=== PATIENT | female | born 1935 | race Caucasian/White ===

== ENCOUNTER 2021-09-21 08:17 | Day surgery (SDC) | payer MEDICARE, OTHER, SELFPAY ==
[2021-09-15 11:29] VITALS: BMI 26.2
--- NOTE | 2021-09-18 08:17 | P.CONAN_ITS ---
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) [facility] Past Medical History Medical History (Updated 09/15/21 @ 11:55 by Maricarmen Taylor, RN) Aortic valvular disease Asthma CAD (coronary artery disease) CHF (congestive heart failure) Chronic renal insufficiency COPD (chronic obstructive pulmonary disease) COVID-19 vaccine series completed Diabetes Elevated cholesterol GERD (gastroesophageal reflux disease) HTN (hypertension) Myocardial infarction On anticoagulant therapy Pacemaker Paroxysmal atrial fibrillation Surgical History Surgical History (Updated 09/15/21 @ 11:46 by Maricarmen Taylor RN) H/O colonoscopy History of esophagogastroduodenoscopy (EGD) History of hip surgery Hx of aortic valve replacement Hx of CABG Hx of cholecystectomy Hx of heart artery stent Hx of tonsillectomy Social History Social History Are you a primary personal care service provider to a significant other at home: No Do you presently have visiting nurse or other home services: No Patient Tobacco Use Status: Never used Tobacco Use of substances other than those prescribed or required for medical reasons: No Have you been hit, kicked, punched, or otherwise hurt by someone within the past year? If so, by whom?: No Are you DNR?: No Advance Directives Information Provided: Yes (brochure mailed) Advance Directives on File: No Recently lost weight without trying: No Nutrition Risks: Surgical patient >75years Poor oral hygiene: No Meds Allergies Allergy/AdvReac Type Severity Reaction Status Date / Time No Known Allergies Allergy Verified 09/15/21 11:24 Home Medications Medication Instructions Recorded Confirmed Last Taken Type albuterol sulfate 90 mcg/actuation 2 puff PO Q4H PRN 09/15/21 09/15/21 Unknown History aerosol inhaler amiodarone 200 mg tablet 1 tab PO DAILY 09/15/21 09/15/21 Unknown History atorvastatin 10 mg tablet 1 tab PO DAILY 09/15/21 09/15/21 Unknown History clopidogrel 75 mg tablet 1 tab PO DAILY 09/15/21 09/15/21 Unknown History famotidine 20 mg tablet 1 tab PO BID 09/15/21 09/15/21 Unknown History furosemide 40 mg tablet 1 tab PO BID 09/15/21 09/15/21 Unknown History insulin aspart U-100 100 unit/mL 3 - 5 unit SUBCUT BID 09/15/21 09/15/21 Unknown History subcutaneous solution (Novolog U-100 Insulin aspart) insulin glargine 100 unit/mL 10 unit SUBCUT DAILY 09/15/21 09/15/21 Unknown History subcutaneous solution (Lantus U-100 Insulin) isosorbide mononitrate 30 mg 1 tab PO DAILY 09/15/21 09/15/21 Unknown History tablet,extended release 24 hr latanoprost 0.005 % eye drops 1 drp OPHTHALMIC-RIGHT BEDTIME 09/15/21 09/15/21 Unknown History metoprolol tartrate 50 mg tablet 1 tab PO BID 09/15/21 09/15/21 Unknown History omega-3 acid ethyl esters 1 gram 2 cap PO DAILY 09/15/21 09/15/21 Unknown History capsule omeprazole 20 mg capsule,delayed 1 cap PO DAILY PRN 09/15/21 09/15/21 Unknown History release potassium chloride 20 mEq 1 tab PO BID 09/15/21 09/15/21 Unknown History tablet,extended release(part/cryst) timolol maleate 0.5 % eye drops 1 drp OPHTHALMIC (EYE) BID 09/15/21 09/15/21 Unknown History Exam Exam Date and Time: September 18, 2021 0817 Height,Weight and Vital Signs: Height 5 ft 3 in Weight 67.132 kg Narrative Narrative: EKG 09/15/21 atrial paced, nonspecific ST changes, prolonged QT. No change from 02/2021 Pacer Interr 07/2021 [id number] AP 97% [employer] <1% Battery remain 89% ECHO 01/2021 Mild conc LVH with normal LV cavity size and vigorous systolic function. Normal regional wall motion with EF 65-70% s/p bioprosthetic aortic valve replacement. Valve is well seated with physiologic performance and no aortic insufficiency Moderately thickened MV leaflets with mod annular calc. Mild MS Mild pulmonary htn Severe LAE Nml RV size and systolic function Assessment and Plan Assessment Anesthesia Assessment: Chart Reviewed
--- NOTE | 2021-09-18 11:47 | MHC.SHP ---
Pre-Procedural Eval Section A Date of Service: 09/18/21 The patient is an INPATIENT: No Changes since office visit: No Cold of Flu in the past 2 weeks, No New Medical Problems, No Changes in Medication and No Patient answered all questions The History & Physical has been completed within 30 days and I have reviewed it.: Yes Section B Chief Complaint: cataract,pigmentary glaucoma Allergies: Allergies Allergy/AdvReac Type Severity Reaction Status Date / Time No Known Allergies Allergy Verified 09/15/21 11:24 Plan Diagnosis/Plan: Unchanged I have reviewed the history and physical and performed a pertinent physical examination on my patient. No changes have occurred unless specified.
[2021-09-21 09:19] VITALS: BP 217/66; PULSE 60; RESP 18; TEMP 36.6; O2SAT 98
[2021-09-21] MEDS: Tetracaine HCl/PF 0.5% Oph Sol 4 ML DROPS 1 DROP EYE-LEFT (09:36)
[2021-09-21] MEDS: Tropicamide 1 % Ophth Sol 3 ML BTL 1 DROP EYE-LEFT ×3 (09:42→09:56)
[2021-09-21] MEDS: Phenylephrine HCL 2.5% Oph SoL 2 ML BOTTLE 1 DROP EYE-LEFT ×3 (09:48→10:03)
[2021-09-21] MEDS: Lactated Ringers 500 ML 20 ML IV (09:55)
--- NOTE | 2021-09-21 10:04 | PC.NURSE ---
pt bp 224/77 initially. multiple checks done with range being 2212/74-236/47. anes at bedside, spoke with ramonita and ok'd to proceed under local only. pt given option to do another day but ok'd with proceeding since she was already here.
--- NOTE | 2021-09-21 10:06 | PC.NURSE ---
hr remains at 60, no pacer spikes shown. rest of vs stable.
--- NOTE | 2021-09-21 10:08 | HO.PNOPHT ---
Ophthalmology Procedure Procedure Date of Service: 09/21/21 Ophthalmology Viscoelastic: Healjada Dialt Dual Pack Pro Ophthalmology Lenses: TECNAKUL [id number] (16) Procedure Notes: PREOPERATIVE DIAGNOSIS: Decreased visual acuity left eye secondary to cataract and glaucoma POSTOPERATIVE DIAGNOSIS: Same PROCEDURE: Left cataract extraction with intraocular lens insertion and trabeculectomy, left eye SURGEON: Peter Altamirano M.D. ANESTHESIA: Topical/MAC ESTIMATED BLOOD LOSS: None COMPLICATIONS: None After obtaining informed consent, the patient was brought to the operating room suite and placed in the supine position. After adequate sedation per anesthesia, topical drops of Tetracaine were given to the left eye. The eye was then prepped and draped in the usual sterile fashion. The operating room microscope was then positioned over the left eye and a lid speculum placed. 2% Lidocaine was instilled subconjunctivally. After awaiting 30 seconds, a paracentesis was created superiorly. Hemostasis was then achieved using wet field cautery. Mitomycin .4mg/ml was then placed in the conjunctival pocket and held in place for two minutes. The subconjunctival pocket was then irrigated copiously with 20 mls of BSS. Paracentesis was then created. Viscoelastic was then instilled into the anterior chamber. A crescent blade was then utilized to create a partial thickness sclera wound followed by advancement to clear cornea with the crescent blade. A keratome was then utilized to enter the anterior chamber. Capsulotomy forceps were then utilized to create a continuous circular tear capsulotomy. Hydrodissection and hydrodelineation were carried out until adequate mobilization of the nucleus occurred. Phacoemulsification was utilized to remove the dense central nucleus followed by removal of remnant cortical material utilizing the automated aspiration irrigation unit. Viscoelastic was then instilled into the posterior capsular bag followed by placement of a posterior chamber intraocular lens. Attention was then directed to create a trabeculectomy. A Caitlin punch was then utilized to create the trabeculectomy. The residual Viscoelastic was then removed utilizing the automated IA machine. The egress of aqueous was evaluated and found to be appropriate. The conjunctiva was then closed with a 9-0 vicryl suture. BSS was then instilled into the anterior chamber creating a superior bleb, without obvious leakage. Intracameral injection of Vigamox 0.3%, 0.1 ml and subtenon injection of Kenalog-40 0.2 ml was given followed by an atropine drop. The patient tolerated the procedure well and will be followed up in the a.m.
--- NOTE | 2021-09-21 10:11 | PC.NURSE ---
pt and dtr aware of local only for procedure.
[2021-09-21 10:54] LABS: Glucose, Whole Blood 160 mg/dL (60-115)
[2021-09-21 11:09] VITALS: BP 182/82; PULSE 60; RESP 16; TEMP 36.3; O2SAT 100
== END 2021-09-21 11:35 | disposition home or self-care (01) ==
PROVIDERS: PCP Internal Medicine; Visit Provider Ophthalmology
PROC: (CPT 66985; principal; 2021-09-21 10:20)
PROC: (CPT 66170; 2021-09-21 10:20)
DX: H25.12 Age-related nuclear cataract, left eye (principal); H40.1123 Primary open-angle glaucoma, left eye, severe stage; H52.4 Presbyopia; E78.5 Hyperlipidemia, unspecified; J45.30 Mild persistent asthma, uncomplicated; I48.0 Paroxysmal atrial fibrillation; I35.0 Nonrheumatic aortic (valve) stenosis; I25.2 Old myocardial infarction; I27.20 Pulmonary hypertension, unspecified; Z95.0 Presence of cardiac pacemaker; E11.22 Type 2 diabetes mellitus with diabetic chronic kidney disease; E11.49 Type 2 diabetes mellitus with other diabetic neurological complication; E11.42 Type 2 diabetes mellitus with diabetic polyneuropathy; I13.0 Hypertensive heart and chronic kidney disease with heart failure and stage 1 through stage 4 chronic kidney disease, or unspecified chronic kidney disease; N18.30 Chronic kidney disease, stage 3 unspecified; I50.9 Heart failure, unspecified; Z79.4 Long term (current) use of insulin; Z79.51 Long term (current) use of inhaled steroids; Z79.01 Long term (current) use of anticoagulants; Z79.899 Other long term (current) drug therapy; Z90.49 Acquired absence of other specified parts of digestive tract
CPT/HCPCS: 66984; 66170; 82947; J3300; J7315; V2632

== ENCOUNTER 2021-10-12 11:06 | Day surgery (SDC) | payer MEDICARE, OTHER, SELFPAY ==
[2021-09-15 11:32] VITALS: BMI 26.2
--- NOTE | 2021-10-08 08:37 | MHC.SHP ---
Pre-Procedural Eval Section A Date of Service: 10/08/21 The patient is an INPATIENT: No Changes since office visit: No Cold of Flu in the past 2 weeks, No New Medical Problems, No Changes in Medication and No Patient answered all questions The History & Physical has been completed within 30 days and I have reviewed it.: Yes Section B Chief Complaint: cataract right eye,pigmentary glaucoma Allergies: Allergies Allergy/AdvReac Type Severity Reaction Status Date / Time No Known Allergies Allergy Verified 09/15/21 11:24 Plan Diagnosis/Plan: Unchanged I have reviewed the history and physical and performed a pertinent physical examination on my patient. No changes have occurred unless specified.
--- NOTE | 2021-10-08 12:05 | P.CONAN_ITS ---
Documented by User: Cheri Leiv NP 10/08/21 13:00 HPI - Anesthesia Eval Consult details Narrative: 86yo F for Right Cataract Extraction IOL Insertion, Trabeculectomy Left eye done 09/21/21 under local anesthesia only d/t high BP DOS PCP cleared Pacer in situ [facility] Past Medical History Medical History (Updated 09/15/21 @ 11:55 by Maricarmen Taylor, RN) Aortic valvular disease Asthma CAD (coronary artery disease) CHF (congestive heart failure) Chronic renal insufficiency COPD (chronic obstructive pulmonary disease) COVID-19 vaccine series completed Diabetes Elevated cholesterol GERD (gastroesophageal reflux disease) HTN (hypertension) Myocardial infarction On anticoagulant therapy Pacemaker Paroxysmal atrial fibrillation Surgical History Surgical History (Updated 09/15/21 @ 11:46 by Maricarmen Taylor, SANTI) H/O colonoscopy History of esophagogastroduodenoscopy (EGD) History of hip surgery Hx of aortic valve replacement Hx of CABG Hx of cholecystectomy Hx of heart artery stent Hx of tonsillectomy Social History Social History Are you a primary director career services to a significant other at home: No Do you presently have visiting nurse or other home services: No Patient Tobacco Use Status: Never used Tobacco Use of substances other than those prescribed or required for medical reasons: No Have you been hit, kicked, punched, or otherwise hurt by someone within the past year? If so, by whom?: No Are you DNR?: No Advance Directives Information Provided: Yes (brochure mailed) Advance Directives on File: No Recently lost weight without trying: No Nutrition Risks: Surgical patient >75years Poor oral hygiene: No Meds Allergies Allergy/AdvReac Type Severity Reaction Status Date / Time No Known Allergies Allergy Verified 09/15/21 11:24 Home Medications Medication Instructions Recorded Confirmed Last Taken Type albuterol sulfate 90 mcg/actuation 2 puff PO Q4H PRN 09/15/21 09/15/21 Unknown History aerosol inhaler amiodarone 200 mg tablet 1 tab PO DAILY 09/15/21 09/15/21 Unknown History atorvastatin 10 mg tablet 1 tab PO DAILY 09/15/21 09/15/21 Unknown History clopidogrel 75 mg tablet 1 tab PO DAILY 09/15/21 09/15/21 Unknown History famotidine 20 mg tablet 1 tab PO BID 09/15/21 09/15/21 Unknown History furosemide 40 mg tablet 1 tab PO BID 09/15/21 09/15/21 Unknown History insulin aspart U-100 100 unit/mL 3 - 5 unit SUBCUT BID 09/15/21 09/15/21 Unknown History subcutaneous solution (Novolog U-100 Insulin aspart) insulin glargine 100 unit/mL 10 unit SUBCUT DAILY 09/15/21 09/15/21 Unknown History subcutaneous solution (Lantus U-100 Insulin) isosorbide mononitrate 30 mg 1 tab PO DAILY 09/15/21 09/15/21 Unknown History tablet,extended release 24 hr latanoprost 0.005 % eye drops 1 drp OPHTHALMIC-RIGHT BEDTIME 09/15/21 09/15/21 Unknown History metoprolol tartrate 50 mg tablet 1 tab PO BID 09/15/21 09/15/21 Unknown History omega-3 acid ethyl esters 1 gram 2 cap PO DAILY 09/15/21 09/15/21 Unknown History capsule omeprazole 20 mg capsule,delayed 1 cap PO DAILY PRN 09/15/21 09/15/21 Unknown History release potassium chloride 20 mEq 1 tab PO BID 09/15/21 09/15/21 Unknown History tablet,extended release(part/cryst) timolol maleate 0.5 % eye drops 1 drp OPHTHALMIC (EYE) BID 09/15/21 09/15/21 Unknown History Exam Exam Date and Time: October 08, 2021 1205 Height,Weight and Vital Signs: Height 5 ft 3 in Weight 67.132 kg Narrative Narrative: ECHO 01/2021 EF 65-70%, mild concentric LVH, no WMA, severe dilation of LA, preserved RV systolic function, well-seated and normally functioning #23 [place] S3 ultra valve with no insufficiency, mild mitral stenosis, mild to moderate tricuspid regurg, pulmonary htn, no other significant findings noted Assessment and Plan Assessment Anesthesia Assessment: Chart Reviewed Documented by User: Trent Bui MD 10/12/21 13:32 [facility] Past Medical History Medical History (Updated 09/15/21 @ 11:55 by Maricarmen Taylor RN) Aortic valvular disease Asthma CAD (coronary artery disease) CHF (congestive heart failure) Chronic renal insufficiency COPD (chronic obstructive pulmonary disease) COVID-19 vaccine series completed Diabetes Elevated cholesterol GERD (gastroesophageal reflux disease) HTN (hypertension) Myocardial infarction On anticoagulant therapy Pacemaker Paroxysmal atrial fibrillation Family History Family history of problems with anesthesia: No Surgical History Surgical History (Updated 09/15/21 @ 11:46 by Maricarmen Taylor RN) H/O colonoscopy History of esophagogastroduodenoscopy (EGD) History of hip surgery Hx of aortic valve replacement Hx of CABG Hx of cholecystectomy Hx of heart artery stent Hx of tonsillectomy History of Problems with Anesthesia: No Social History Social History Are you a primary director career services to a significant other at home: No Do you presently have visiting nurse or other home services: No Patient Tobacco Use Status: Never used Tobacco Use of substances other than those prescribed or required for medical reasons: No Have you been hit, kicked, punched, or otherwise hurt by someone within the past year? If so, by whom?: No Are you DNR?: No Advance Directives Information Provided: Yes (brochure mailed) Advance Directives on File: No Recently lost weight without trying: No Nutrition Risks: Surgical patient >75years Poor oral hygiene: No Meds Allergies Allergy/AdvReac Type Severity Reaction Status Date / Time No Known Allergies Allergy Verified 09/15/21 11:24 Home Medications Medication Instructions Recorded Confirmed Last Taken Type albuterol sulfate 90 mcg/actuation 2 puff PO Q4H PRN 09/15/21 09/15/21 Unknown History aerosol inhaler amiodarone 200 mg tablet 1 tab PO DAILY 09/15/21 09/15/21 Unknown History atorvastatin 10 mg tablet 1 tab PO DAILY 09/15/21 09/15/21 Unknown History clopidogrel 75 mg tablet 1 tab PO DAILY 09/15/21 09/15/21 Unknown History famotidine 20 mg tablet 1 tab PO BID 09/15/21 09/15/21 Unknown History furosemide 40 mg tablet 1 tab PO BID 09/15/21 09/15/21 Unknown History insulin aspart U-100 100 unit/mL 3 - 5 unit SUBCUT BID 09/15/21 09/15/21 Unknown History subcutaneous solution (Novolog U-100 Insulin aspart) insulin glargine 100 unit/mL 10 unit SUBCUT DAILY 09/15/21 09/15/21 Unknown History subcutaneous solution (Lantus U-100 Insulin) isosorbide mononitrate 30 mg 1 tab PO DAILY 09/15/21 09/15/21 Unknown History tablet,extended release 24 hr latanoprost 0.005 % eye drops 1 drp OPHTHALMIC-RIGHT BEDTIME 09/15/21 09/15/21 Unknown History metoprolol tartrate 50 mg tablet 1 tab PO BID 09/15/21 09/15/21 Unknown History omega-3 acid ethyl esters 1 gram 2 cap PO DAILY 09/15/21 09/15/21 Unknown History capsule omeprazole 20 mg capsule,delayed 1 cap PO DAILY PRN 09/15/21 09/15/21 Unknown History release potassium chloride 20 mEq 1 tab PO BID 09/15/21 09/15/21 Unknown History tablet,extended release(part/cryst) timolol maleate 0.5 % eye drops 1 drp OPHTHALMIC (EYE) BID 09/15/21 09/15/21 Unknown History Exam Airway Mallampati Class: III TM Dist: >3cm Neck ROM: Full Denture: Upper and Lower Loose/Missing/Broken Teeth: Yes Heart: [id number] Lungs: cta b/l Assessment and Plan Assessment Anesthesia Assessment: Anesthesia Plan Discussed Final Anesthetic Review Family History of Problems with Anesthesia: No History of Problems with Anesthesia: No NPO: Yes ASA Class: III Final Preanesthetic Review: No Changes in Pt Med Stat, Meds/Allgs Chart Reviewed, Consent Obtained/Reviewed and Anes Risks/Benef Reviewed Patient Risk: Intermediate Procedure Risk: Low Assessment/Block/Sedation in SS: Assess/Block/Sedation-SS Anesthetic Plan Anesthetic Plan: MAC: and Agree w/ Assess. and Plan Disposition: Standard PACU
[2021-10-12 13:09] VITALS: BP 146/86; PULSE 60; RESP 16; TEMP 36.2; O2SAT 97
[2021-10-12] MEDS: Lactated Ringers 500 ML 50 ML IV (13:22)
[2021-10-12 13:23] LABS: Glucose, Whole Blood 173 mg/dL (60-115)
[2021-10-12] MEDS: Tetracaine HCl/PF 0.5% Oph Sol 4 ML DROPS 1 DROP EYE-RIGHT (13:23)
[2021-10-12] MEDS: Tropicamide 1 % Ophth Sol 3 ML BTL 1 DROP EYE-RIGHT ×3 (13:25→13:32)
[2021-10-12] MEDS: Phenylephrine HCL 2.5% Oph SoL 2 ML BOTTLE 1 DROP EYE-RIGHT ×3 (13:27→13:34)
--- NOTE | 2021-10-12 14:25 | P.PCNO_ITS ---
Ophthalmology Procedure Procedure Date of Service: 10/12/21 Ophthalmology Viscoelastic: Healjada Duet Dual Pack Pro Ophthalmology Lenses: TECNAKUL [id number] (16) Procedure Notes: PREOPERATIVE DIAGNOSIS: Decreased visual acuity right eye secondary to cataract and glaucoma. POSTOPERATIVE DIAGNOSIS: Same PROCEDURE: Right cataract extraction with intraocular lens insertion and trabecu lectomy, right eye SURGEON: Peter Altamirano M.D. ANESTHESIA: Topical/MAC ESTIMATED BLOOD LOSS: None COMPLICATIONS: None After obtaining informed consent, the patient was brought to the operating room suite and placed in the supine position. After adequate sedation per anesthesia, topical drops of Tetracaine were given to the right eye. The eye was then prepped and draped in the usual sterile fashion. The operating room microscope was then positioned over the right eye and a lid speculum placed. 2% Lidocaine was instilled subconjunctivally. After awaiting 30 seconds, a paracentesis was created superiorly. Hemostasis was then achieved using wet field cautery. Mitomycin .4mg/ml was then placed in the conjunctival pocket and held in place for two minutes. The subconjunctival pocket was then irrigated copiously with 20 mls of BSS. Paracentesis was then created. Viscoelastic was then instilled into the anterior chamber. A crescent blade was then utilized to create a partial thickness sclera wound followed by advancement to clear cornea with the crescent blade. A keratome was then utilized to enter the anterior chamber. Capsulotomy forceps were then utilized to create a continuous circular tear capsulotomy. Hydrodissection and hydrodelineation were carried out until adequate mobilization of the nucleus occurred. Phacoemulsification was utilized to remove the dense central nucleus followed by removal of remnant cortical material utilizing the automated aspiration irrigation unit. Viscoelastic was then instilled into the posterior capsular bag followed by placement of a posterior chamber intraocular lens. Attention was then directed to create a trabeculectomy. A Caitlin punch was then utilized to create the trabeculectomy. The residual Viscoelastic was then removed utilizing the automated IA machine. The egress of aqueous was evaluated and found to be appropriate. The conjunctiva was then closed with a 9-0 vicryl suture. BSS was then instilled into the anterior chamber creating a superior bleb, without obvious leakage. Intracameral injection of Vigamox 0.3%, 0.1 ml and subtenon injection of Kenalog-40 0.2 ml was given followed by an atropine drop. The patient tolerated the procedure well and will be followed up in the a.m.
[2021-10-12 15:10] VITALS: BP 187/86; PULSE 60; RESP 16; TEMP 36.1; O2SAT 99
== END 2021-10-12 15:25 | disposition home or self-care (01) ==
PROVIDERS: PCP Internal Medicine; Visit Provider Ophthalmology
PROC: (CPT 66985; principal; 2021-10-12 14:40)
PROC: (CPT 66170; 2021-10-12 14:40)
DX: H25.11 Age-related nuclear cataract, right eye (principal); H40.1330 Pigmentary glaucoma, bilateral, stage unspecified; H40.1133 Primary open-angle glaucoma, bilateral, severe stage; H52.4 Presbyopia; E78.00 Pure hypercholesterolemia, unspecified; I25.10 Atherosclerotic heart disease of native coronary artery without angina pectoris; Z98.61 Coronary angioplasty status; Z95.0 Presence of cardiac pacemaker; I48.0 Paroxysmal atrial fibrillation; I25.2 Old myocardial infarction; E11.22 Type 2 diabetes mellitus with diabetic chronic kidney disease; I12.9 Hypertensive chronic kidney disease with stage 1 through stage 4 chronic kidney disease, or unspecified chronic kidney disease; E11.42 Type 2 diabetes mellitus with diabetic polyneuropathy; E11.49 Type 2 diabetes mellitus with other diabetic neurological complication; N18.30 Chronic kidney disease, stage 3 unspecified; Z79.4 Long term (current) use of insulin; Z79.01 Long term (current) use of anticoagulants; Z79.899 Other long term (current) drug therapy; Z95.2 Presence of prosthetic heart valve
CPT/HCPCS: 66984; 66170; 82947; J2250; J3010; J3300; J7315; V2632

== ENCOUNTER 2023-05-15 15:02 | Emergency (ER) | payer MEDICARE, OTHER, SELFPAY ==
--- NOTE | 2023-05-15 15:05 | ED.BACK ---
HPI - Back Pain/Injury General Chief Complaint: Back Pain/Injury Stated Complaint: Back pain x2 weeks, prior surgery Time Seen by Provider: 05/15/23 15:03 Source: patient and EMS Mode of arrival: EMS Limitations: no limitations History of Present Illness HPI Narrative: Patient is an 88-year-old female presents emergency department for evaluation of back pain. Reports right-sided lower back pain for a couple of months. She was evaluated by her primary care provider would prescribed Lidoderm patches with reportedly have not provided any relief. Pain is mostly constant, exacerbated with movement and position changing. Suddenly worse this morning and is so severe that she was unable to walk at home. She took Tylenol 30 minutes prior to arrival. She denies any radiation of the pain. She denies any precipitating injury. Denies fevers, chills, burning with micturition, urinary frequency/urgency/hesitancy, bladder or bowel dysfunction, numbness or tingling of the perineum or bilateral legs. Denies any recent surgical procedures, any known immune compromising conditions, personal history of cancer, or IV drug usage. MD elicited complaint: back pain Related Data Home Medications Medication Instructions Recorded Confirmed albuterol sulfate 90 mcg/actuation 2 puff PO Q4H PRN wheezing 09/15/21 09/15/21 aerosol inhaler amiodarone 200 mg tablet 1 tab PO DAILY 09/15/21 09/15/21 atorvastatin 10 mg tablet 1 tab PO DAILY 09/15/21 09/15/21 clopidogrel 75 mg tablet 1 tab PO DAILY 09/15/21 09/15/21 famotidine 20 mg tablet 1 tab PO BID 09/15/21 09/15/21 furosemide 40 mg tablet 1 tab PO BID 09/15/21 09/15/21 insulin aspart U-100 100 unit/mL 3 - 5 unit subcut BID 09/15/21 09/15/21 subcutaneous solution (Novolog U-100 Insulin aspart) insulin glargine 100 unit/mL 10 unit subcut DAILY 09/15/21 09/15/21 subcutaneous solution (Lantus U-100 Insulin) isosorbide mononitrate 30 mg 1 tab PO DAILY 09/15/21 09/15/21 tablet,extended release 24 hr latanoprost 0.005 % eye drops 1 drp ophthalmic-Right BEDTIME 09/15/21 09/15/21 metoprolol tartrate 50 mg tablet 1 tab PO BID 09/15/21 09/15/21 omega-3 acid ethyl esters 1 gram 2 cap PO DAILY 09/15/21 09/15/21 capsule omeprazole 20 mg capsule,delayed 1 cap PO DAILY PRN heartburn 09/15/21 09/15/21 release potassium chloride 20 mEq 1 tab PO BID 09/15/21 09/15/21 tablet,extended release(part/cryst) timolol maleate 0.5 % eye drops 1 drp ophthalmic (eye) BID 09/15/21 09/15/21 Allergies Allergy/AdvReac Type Severity Reaction Status Date / Time No Known Allergies Allergy Verified 05/15/23 15:14 Review of Systems Review of Systems: Yes all other systems are reviewed and are negative PMFSH Past Medical History Attestation statement: The following information was validated with the patient. Source: old records reviewed Onset Date is defined in the Problem List Problems that require an onset date and time if occurred within 24 hrs of arrival to the ED Aortic Dissection and Rupture; Neurologic impairment; Cardiopulmonary Arrest; Endotracheal Intubation; Insertion or Replacement of Mechanical Circulatory Assist Device Medical History Paroxysmal atrial fibrillation COVID-19 vaccine series completed Diabetes GERD (gastroesophageal reflux disease) Chronic renal insufficiency COPD (chronic obstructive pulmonary disease) Asthma On anticoagulant therapy Elevated cholesterol Aortic valvular disease Pacemaker CHF (congestive heart failure) Myocardial infarction CAD (coronary artery disease) HTN (hypertension) Surgical History Hx of tonsillectomy Hx of cholecystectomy History of esophagogastroduodenoscopy (EGD) Hx of CABG Hx of heart artery stent Hx of aortic valve replacement History of hip surgery H/O colonoscopy Social History Social History Are you a primary congregational care pastor to a significant other at home: No Do you presently have visiting nurse or other home services: No Patient Tobacco Use Status: Never used Tobacco Smoked in Last 30 Days: No Use of substances other than those prescribed or required for medical reasons: No Physical Exam Vital Signs: Vital Signs: Last Vital Signs Pulse 63 05/15/23 15:14 Resp 16 05/15/23 15:14 BP 168/46 H 05/15/23 15:14 Pulse Ox 98 05/15/23 15:14 O2 Del Method Room Air 05/15/23 15:14 BMI result Body Mass Index 26.8 Appearance: Alert.?Oriented to person, place and time. No acute distress.?Normal affect. Eyes: Pupils equal, round and reactive to light.? ENT: Pharynx normal.?? Neck: Normal inspection.? Neck supple.?? CVS: Heart sounds normal. Normal heart rate and rhythm.? Pulses normal; bilateral radial pulses 2+, bilateral posterior tibial/dorsalis pedis pulses 2+.? Respiratory: No respiratory distress.? Lung sounds clear to auscultation bilaterally?? Abdomen: Soft and non-tender. Normoactive bowel sounds. No pulsatile mass.?? Skin: Skin warm and dry.? Normal skin color.? Extremities: No lower extremity edema.? No calf ttp? Back: + severe paraspinal muscular tenderness from lumbar region to coccyx. No CVA tenderness. No midline spinal tenderness, step-off's, or deformity. Full ROM intact in bilateral lower extremities. Straight leg test positive on right; Straight leg test on left. No rashes, lesions, areas of induration or fluctuance, or signs of infection noted., Neuro: Moves all extremities spontaneously. 5/5 strength in hip extension/flexion, abduction, adduction. Sensation to light touch intact bilaterally. Patellar and Achilles reflex 2+ bilaterally. No ataxia, gait normal and steady.. No focal neuro deficits. Course Reevaluation(s) Reevaluation #1: CBC is without leukocytosis, microcytic anemia does not meet transfusion criteria. Patient signed out to Vel Nevarez NP pending remainning lab results, CT, re-evaluation, and disposition Medications Administered Discontinued Medications Generic Name Dose Route Start Last Admin Trade Name Freq PRN Reason Stop Dose Admin Morphine Sulfate 4 mg 05/15/23 15:12 05/15/23 15:29 Morphine Sulfate 4 Mg/Ml Cartridge IVPUSH 05/15/23 15:13 4 mg ONCE ONE Administration Protocol Ondansetron HCl 4 mg 05/15/23 15:12 05/15/23 15:27 Ondansetron Hcl 4 Mg/2 Ml Vial IVPUSH 05/15/23 15:13 4 mg ONCE ONE Administration Medical Decision Making Medical Decision Making MDM Narrative: Patient is an 88-year-old female with past medical history of paroxysmal atrial fibrillation, type 2 diabetes, GERD, CKD stage 3, COPD, hypercholesterolemia, pacemaker, aortic valve replacement, CHF, myocardial infarction, CAD, hypertension who presents emergency department via EMS for evaluation of right lower back pain as per HPI. Upon physical examination she has notable severe tenderness diffusely across the right lumbar region midline as well and SI joint. On neurological exam there are no deficits. Not consistent with spinal fracture, spinal infection, epidural abscess, AAA, epidural abscess, or dissection. No high risk past medical history including incontinence, fever, immunosuppression, recent surgery or lumbar puncture, coagulopathy, significant trauma, recent unintentional weight loss, pulsatile mass, history of cancer, history of TB, history of IV drug use that would warrant MRI clinically have low suspicion for appendicitis, diverticulitis. On exam no concern for cauda equina syndrome. Will obtain CT of the abdomen and pelvis, treat with morphine IV for pain. Differential Diagnosis Differential Diagnoses: The differential diagnosis associated with the presentation includes ( see narrative above) Admission/Observation Consideration of admission/observation: Escalation of care including admission/observation considered ( see narrative above) Lab Data MDM Lab Attestation statement: I reviewed the patient's lab results. (See course narrative) 05/15/23 15:22 05/15/23 15:22 Labs: Lab Results 05/15/23 Range/Units 15:22 WBC 9.9 (4.8-10.8) X10*3/uL RBC 4.14 L (4.20-5.50) X10*6/uL Hgb 10.2 L (12.0-16.0) g/dl Hct 33.2 L (37.0-47.0) % MCV 80.2 (80.0-98.0) fL MCH 24.6 L (27.0-33.0) pg MCHC 30.7 L (31.0-35.0) g/dl RDW 15.0 (11.0-16.0) % Plt Count 243 (160-400) X10*3/uL MPV 11.1 (9.4-12.3) fL Immature Gran % (Auto) 0.3 (0.0-0.4) % Neut % (Auto) 63.9 (45-73) % Lymph % (Auto) 19.7 L (20-40) % [place] % (Auto) 11.9 H (2-11) % Eos % (Auto) 3.9 (0-4) % Baso % (Auto) 0.3 (0-2) % Lymph # (Auto) 2.0 (1.2-4.9) X10*3/uL [place] # (Auto) 1.2 (0.1-1.2) X10*3/uL Eos # (Auto) 0.4 (0.0-0.4) X10*3/uL Baso # (Auto) 0.0 (0.0-0.2) X10*3/uL Abs Immat Gran (auto) 0.03 (0.00-0.03) X10*3/uL Absolute Neuts (auto) 6.3 (2.0-8.3) x10*3/uL Absolute Nucleated RBC 0.000 (0.0-0.012) X10*3/uL Nucleated RBC % (auto) 0.0 (0.0-0.2) /100WBC Sodium 138 (135-145) mmol/L Potassium 4.4 (3.3-5.1) mmol/L Chloride 107 (96-108) mmol/L Carbon Dioxide 23 (22-29) mmol/L Anion Gap 12 (12-20) BUN 33 H (9-16) mg/dL Creatinine 1.46 H (0.5-1.4) mg/dL Estim Creat Clear Calc 21.4 Estimated GFR 34 Random Glucose 120 H (60-115) mg/dL Calcium 9.2 (8.4-10.2) mg/dL Total Bilirubin 0.4 (0.0-1.0) mg/dL AST 40 H (5-31) U/L ALT 29 (0-31) U/L Alkaline Phosphatase 93 (39-117) U/L Total Protein 7.2 (6.5-8.0) g/dL Albumin 3.2 L (3.5-5.0) g/dL Radiology Impression Discussion of test interpretation with radiology: I have reviewed the radiologist's reading. Independent Historian Clinical information obtained from an independent historian. History obtained from or confirmed by: Spouse (Present who confirms history) and EMS External Record Review External record reviewed: Outpatient record Prescription Management I considered prescription management with: Pain Medication Discharge Plan Discharge Clinical Impression: Back pain Patient Disposition: Still a Patient Prescriptions: No Action furosemide 40 mg tablet 1 tab PO BID latanoprost 0.005 % drops 1 drp ophthalmic-Right BEDTIME Lantus U-100 Insulin 100 unit/mL solution 10 unit subcut DAILY atorvastatin 10 mg tablet 1 tab PO DAILY amiodarone 200 mg tablet 1 tab PO DAILY isosorbide mononitrate 30 mg tablet extended release 24 hr 1 tab PO DAILY clopidogrel 75 mg tablet 1 tab PO DAILY potassium chloride 20 mEq tablet,ER particles/crystals 1 tab PO BID famotidine 20 mg tablet 1 tab PO BID insulin aspart U-100 [Novolog U-100 Insulin aspart] 100 unit/mL solution 3 - 5 unit subcut BID metoprolol tartrate 50 mg tablet 1 tab PO BID omeprazole 20 mg capsule,delayed release(DR/EC) 1 cap PO DAILY PRN (Reason: heartburn) albuterol sulfate 90 mcg/actuation HFA aerosol inhaler 2 puff PO Q4H PRN (Reason: wheezing) timolol maleate 0.5 % drops 1 drp ophthalmic (eye) BID omega-3 acid ethyl esters 1 gram capsule 2 cap PO DAILY
[2023-05-15 15:14] VITALS: BP 168/46; PULSE 63; RESP 16; O2SAT 98; BMI 26.8
[2023-05-15 16:08] VITALS: BP 154/46; PULSE 60; RESP 16; TEMP 37.1; O2SAT 97
[2023-05-15 18:11] VITALS: BP 172/60; PULSE 64; RESP 16; TEMP 36.9; O2SAT 97
--- NOTE | 2023-05-15 18:29 | MHC.EDTECH ---
Patient was change into gown ,SANTI Pollack said not to remove extra blankets from underneath Pt bottom ,Because Pt is in severe Pain ,vitals taken ,repeated labs drawn and sent to lab ,ans Patient belongings list done ,Pt family took all clothing and house slippers home ,Pt only have her hearing aid and glasses here .
[2023-05-15 18:47] LABS: Anion Gap 12 (12-20); Blood Urea Nitrogen 31 mg/dL (9-16); Calcium 8.8 mg/dL (8.4-10.2); Carbon Dioxide 20 mmol/L (22-29); Chloride 111 mmol/L (96-108); Creatinine Clr Calc Pharmacy 24.2; Estimated Glomerular Filt Rate 39; Glucose Random 99 mg/dL (60-115); Potassium 4.8 mmol/L (3.3-5.1); Sodium 138 mmol/L (135-145)
[2023-05-15 23:09] VITALS: BP 163/87; PULSE 63; RESP 17; TEMP 36.3; O2SAT 99
[2023-05-16 05:48] VITALS: BP 137/68; PULSE 60; RESP 16; TEMP 36.7; O2SAT 94
--- NOTE | 2023-05-16 06:03 | MHC.EDTECH ---
PATIENT SLEPT ALL NIGHT ,VITALS DONE ,PT WAS CHECK AND IS DRY ,PURE WICK WORKING FINE ,PT WAS BOOSTED UP AND REPOSITION IN BED WITH PILLOWS ,PT HAD SIPS OF WATER TO DRINK ,BED ALARM ON AND CALL [facility] WITHIN REACH .
[2023-05-16 08:35] VITALS: BP 160/58; PULSE 62; RESP 16; O2SAT 98
--- NOTE | 2023-05-16 10:55 | PC.NURSE ---
part of med rec does not appear to be done- pharmacy heading down to complete w pt at bedside. gricel machuca made aware
--- NOTE | 2023-05-16 12:00 | PC.NURSE ---
p ate lunch well. called caf as pt does not have teeth so given softer items. no distress.
--- NOTE | 2023-05-16 12:27 | PHA.MEDREC ---
Pharmacy Consult ? Medication Reconciliation Pharmacy has completed the medication reconciliation. spoke with patients daughter over the phone to confirm medications
--- NOTE | 2023-05-16 13:08 | MHC.CM.ED ---
Received case management consult overnight. Patient came to the ER due to back pain. Work up essentially negative. Physical therapy eval completed. Home services are recommended. Met with patient in regards to discharge planning. Patient lives alone and is active with [facility] for [facility]. PCP verified as Dr Elaina Lorenz. Copy of HCP verified to be on file. Attempted to discuss d/c planning with patient. Patient having a difficult time hearing T/W. Spoke with patient's daughter, Leila, via telephone at [phone]. Leila is concerned about patient's back pain from history of compression fractures. T/W explained [facility] now [place] a spine doctor and PA. Contact information provided to Leila for these providers. Leila verbalized understanding and will be here in the ER around 6pm to transport patient home. [facility] aware. Patient, Alicja HANCOCK and Carolann MCKEON aware. Continue to monitor for d/c needs.
[2023-05-16 14:00] VITALS: BP 136/55; PULSE 63; RESP 16; TEMP 36.3; O2SAT 96
[2023-05-16 16:51] LABS: Glucose, Whole Blood 124 mg/dL (60-115)
== END 2023-05-16 18:02 | disposition home or self-care (01) ==
PROVIDERS: Registered Nurse Emergency; Emergency Provider Emergency Medicine; PCP Internal Medicine
DX: M54.50 Low back pain, unspecified (principal); D53.9 Nutritional anemia, unspecified; I48.0 Paroxysmal atrial fibrillation; E11.22 Type 2 diabetes mellitus with diabetic chronic kidney disease; I13.0 Hypertensive heart and chronic kidney disease with heart failure and stage 1 through stage 4 chronic kidney disease, or unspecified chronic kidney disease; N18.30 Chronic kidney disease, stage 3 unspecified; I50.9 Heart failure, unspecified; Z95.0 Presence of cardiac pacemaker; Z79.01 Long term (current) use of anticoagulants; Z79.899 Other long term (current) drug therapy; L89.899 Pressure ulcer of other site, unspecified stage
CPT/HCPCS: 36415; 72131; 80048; 80053; 81003; 82947; 85025; 96361; 96374; 96375; 97162; 99284; 99285; J2270; J2405

== ENCOUNTER 2024-01-02 16:30 | Inpatient (IN) | payer MEDICARE, OTHER, SELFPAY ==
[2024-01-02] VITALS (7 sets, daily range): BP systolic 124–149; BP diastolic 45–76; PULSE 60–90; RESP 9–15; TEMP 36.5–36.7; O2SAT 98–99; BMI 24.9
--- NOTE | ~2024-01-02 | XR_ITS ---
EXAMINATION: RADIOGRAPH RIGHT FEMUR AND RIGHT KNEE CLINICAL INFORMATION: Pain. COMPARISON: CT abdomen/pelvis 01/04/2024. TECHNIQUE: 2 views of the right femur. 3 views of the right knee. FINDINGS: Right femur: No acute fracture or dislocation. 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 Additional degenerative bony proliferative changes along the greater trochanter. Severe vascular calcifications. Multiple surgical clips projecting over the medial soft tissues of the thigh. Nonspecific diffuse soft tissue swelling. Right knee: No acute fracture or dislocation. Moderate tricompartmental degenerative changes. Trace chondrocalcinosis. Patella spurring. No significant joint effusion. Severe vascular calcifications. Multiple surgical clips overlying the medial soft tissues. Diffuse soft tissue swelling. Scattered superficial soft tissue calcifications, possibly phleboliths. XR/XR knee RT 2V IMPRESSION: 1. No acute fracture or dislocation. 2. 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 3. Trace chondrocalcinosis of the right knee. 4. Severe vascular calcifications. 5. Diffuse soft tissue swelling. Electronically signed by: Sindi Huff MD 01/10/2024 06:13 PM EDT
--- NOTE | ~2024-01-02 | XR_ITS ---
EXAMINATION: XR CHEST CLINICAL INFORMATION: Altered mental status. COMPARISON: None available. TECHNIQUE: Frontal view of the chest was obtained. FINDINGS: The heart size is top normal. There has been a prior median sternotomy. A TAVR stent is noted. Lung volumes are diminished, with crowding of bronchovascular and pulmonary parenchymal markings. No focal infiltrate or congestive heart failure is seen. There is no pleural effusion or pneumothorax. There are multiple old, healed right lateral rib fractures. No acute osseous abnormality is seen. A dual-lead, dual-chamber pacemaker device is seen, without fracture or change in lead tip positions. There appear to be garments overlapping the upper chest. Multiple overlapping monitor leads are seen, limiting evaluation. There has been a prior upper lumbar vertebroplasty. XR/XR chest 1V IMPRESSION: Lung volumes are diminished. There is at least top normal cardiac size. No focal infiltrate or congestive heart failure is seen. Electronically signed by: Jovanny Hernandez MD 01/02/2024 08:17 PM EDT
--- NOTE | ~2024-01-02 | XR_ITS ---
EXAMINATION: RADIOGRAPH RIGHT FEMUR AND RIGHT KNEE CLINICAL INFORMATION: Pain. COMPARISON: CT abdomen/pelvis 01/04/2024. TECHNIQUE: 2 views of the right femur. 3 views of the right knee. FINDINGS: Right femur: No acute fracture or dislocation. 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 Additional degenerative bony proliferative changes along the greater trochanter. Severe vascular calcifications. Multiple surgical clips projecting over the medial soft tissues of the thigh. Nonspecific diffuse soft tissue swelling. Right knee: No acute fracture or dislocation. Moderate tricompartmental degenerative changes. Trace chondrocalcinosis. Patella spurring. No significant joint effusion. Severe vascular calcifications. Multiple surgical clips overlying the medial soft tissues. Diffuse soft tissue swelling. Scattered superficial soft tissue calcifications, possibly phleboliths. XR/XR femur RT 2V IMPRESSION: 1. No acute fracture or dislocation. 2. 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 3. Trace chondrocalcinosis of the right knee. 4. Severe vascular calcifications. 5. Diffuse soft tissue swelling. Electronically signed by: Sindi Huff MD 01/10/2024 06:13 PM EDT
--- NOTE | ~2024-01-02 | US_ITS ---
EXAMINATION: US ABDOMEN LIMITED CLINICAL INFORMATION: elevated LFTs. COMPARISON: None available. TECHNIQUE: Real-time imaging of the right upper quadrant abdominal viscera. FINDINGS: PANCREAS: Normal. LIVER: No focal hepatic mass. No intrahepatic biliary dilatation. GALLBLADDER: The gallbladder is surgically absent. COMMON BILE DUCT: Normal in caliber measuring 0.3 cm in diameter. RIGHT KIDNEY: Normal. No hydronephrosis. No renal calculi or focal parenchymal lesions. The kidney measures 0.8 cm in maximum dimension. FREE FLUID: None. US/US abdomen limited IMPRESSION: No biliary dilatation. No abnormal findings in the right upper quadrant. Electronically signed by: Roldan Brito MD 01/03/2024 01:55 PM EDT
--- NOTE | ~2024-01-02 | US_ITS ---
EXAMINATION: US TRIPLEX UPPER EXTREMITY, BILATERAL CLINICAL INFORMATION: Bilateral upper extremity swelling COMPARISON: None available. TECHNIQUE: Color-flow triplex imaging with spectral analysis and compression Doppler was performed on both upper extremities. FINDINGS: The bilateral internal jugular, subclavian, and axillary veins are patent and free of thrombus. The imaged segments of the brachiocephalic veins are patent. Spectral doppler waveforms are normal. The brachial, basilic, cephalic, radial, and ulnar veins are patent and compressible. US/US venous duplex UE BI IMPRESSION: No evidence of deep venous thrombosis involving the bilateral upper extremities. Electronically signed by: Gato Isabel MD 01/06/2024 11:06 AM EDT
--- NOTE | ~2024-01-02 | CT_ITS ---
EXAMINATION: CT ABDOMEN AND PELVIS WITHOUT CONTRAST CLINICAL INFORMATION: Abdominal pain COMPARISON: Ultrasound abdomen 01/03/2024 TECHNIQUE: Multidetector volumetric imaging was performed from the superior aspect of the liver through the pubic symphysis. Sagittal and coronal reformatted images were obtained on the technologist's workstation. This CT examination was performed using dose optimization techniques as appropriate, variously including the following: *Automated exposure control *Adjustment of mA and/or kV according to patient size (this includes techniques or standardized protocols for targeted exams where dose is matched to indication/reason for exam; i.e. extremities or head) *Use of iterative reconstruction technique DLP: 478 mGy-cm FINDINGS: LUNG BASES: Small bibasilar effusions and bibasilar atelectatic change. LIVER, GALLBLADDER, AND BILIARY TREE: Mild lobular contour to the liver but no focal mass or intrahepatic biliary dilatation. Distended IVC may reflect right-sided cardiac decompensation. The gallbladder is surgically absent. PANCREAS: Unremarkable. SPLEEN: Unremarkable. ADRENAL GLANDS: Unremarkable. KIDNEYS AND URETERS: The kidneys appear somewhat atrophic but no hydronephrosis or mass or perinephric collection observed. BLADDER: Unremarkable. GASTROINTESTINAL TRACT: There is no bowel obstruction or right or left lower quadrant inflammation. Small hiatal hernia noted. ABDOMINAL WALL: No significant hernia is appreciated. LYMPH NODES: Normal. VASCULAR: Aorta is atherosclerotic but not aneurysmal. PELVIC VISCERA: Senescent uterus. Vascular calcifications noted in the adnexal regions. Senescent calcifications in the uterus. OSSEOUS STRUCTURES: Advanced degenerative changes observed. There is a severe chronic appearing compression fracture L1 and postkyphoplasty changes T12 and L1. CT/CT abdomen pelvis wo IV con IMPRESSION: No acute findings in the abdomen or pelvis. Small bibasilar effusions. Query right-sided heart failure. No acute findings in the abdomen. Fleischner guidelines were followed. Electronically signed by: Roldan Brito MD 01/04/2024 10:42 AM EDT
--- NOTE | ~2024-01-02 | CT_ITS ---
EXAMINATION: CT HEAD WITHOUT CONTRAST CLINICAL INFORMATION: Altered mental status. COMPARISON: None available. TECHNIQUE: Contiguous axial imaging was performed from the skull base to vertex without intravenous administration of contrast. This CT examination was performed using dose optimization techniques as appropriate, variously including the following: *Automated exposure control. *Adjustment of mA and/or kV according to patient size (this includes techniques or standardized protocols for targeted exams where dose is matched to indication/reason for exam; i.e. extremities or head). *Use of iterative reconstruction technique. DLP: 579 mGy-cm FINDINGS: There is no evidence of acute intracranial hemorrhage or edematous territorial infarction. [place]-white matter differentiation is preserved. Scattered and partially confluent hypoattenuation in the periventricular and deep white matter are consistent with moderate microangiopathy. Proportional prominence of the ventricles and sulcal spaces without evidence of obstructive hydrocephalus. No abnormal mass effect or midline shift. No extra-axial fluid collections. Calcific atherosclerotic disease of the intracranial internal carotid and vertebral arteries. No hyperdense vessel sign. Moderate subgaleal hematoma/edema along the left posterior vertex, measuring up to 0.5 cm in depth. No associated acute osseous abnormalities. Mild mucosal thickening of the paranasal sinuses. The mastoid air cells and middle ear cavities are clear. Bilateral lens extractions. CT/CT head/brain wo IV con IMPRESSION: 1. No evidence of acute intracranial hemorrhage or edematous territorial infarction. 2. Moderate underlying microangiopathy and generalized cerebral volume loss. 3. Moderate left posterior scalp hematoma/edema. No associated osseous abnormalities. Electronically signed by: Jed Cedeno DO 01/02/2024 07:20 PM EDT
--- NOTE | 2024-01-02 16:43 | ED_ITS ---
HPI - Altered Mental Status General Chief Complaint: Altered Mental Status Stated Complaint: AMS Time Seen by Provider: 01/02/24 16:40 Source: patient Mode of arrival: ambulatory Limitations: no limitations History of Present Illness ED Provider: rosa GARRETT narrative: Patient's history of COPD CKD hypotension CHF paroxysmal AFib not on any anticoagulation lives in independent living place with her bowels at [facility] better part yesterday was fine uses wheelchair or walker for ambulation went to bed around 23:00 with woke up at 04:00 found her sleeping at 09:00 also she was sleepy snoring at 03:00 o'clock when she did not wake up he called his daughter patient is obtunded breathing normally afebrile POC was 114 when EMS arrived no signs of injury afebrile Related Data Home Medications ?Medication ?Instructions ?Recorded ?Confirmed albuterol sulfate 90 mcg/actuation 2 puff PO Q6H PRN wheezing 09/15/21 05/16/23 aerosol inhaler amiodarone 200 mg tablet 1 tab PO DAILY 09/15/21 05/15/23 atorvastatin 10 mg tablet 1 tab PO DAILY 09/15/21 05/15/23 famotidine 20 mg tablet 1 tab PO DAILY PRN Heartburn 09/15/21 05/16/23 furosemide 40 mg tablet 1 tab PO DAILY 09/15/21 05/16/23 insulin glargine 100 unit/mL 14 unit subcut BEDTIME 09/15/21 05/16/23 subcutaneous solution (Lantus U-100 Insulin) omega-3 acid ethyl esters 1 gram 2 cap PO DAILY 09/15/21 05/15/23 capsule Refresh 1 drp ophthalmic (eye) BID 05/15/23 05/15/23 aspirin 81 mg PO DAILY 05/15/23 05/15/23 calcitonin (salmon) 200 1 spray intranasal DAILY 05/15/23 05/15/23 unit/actuation nasal spray carvedilol 6.25 mg tablet 6.25 mg PO BID 05/15/23 05/15/23 isosorbide mononitrate 60 mg 60 mg PO DAILY 05/16/23 05/16/23 tablet,extended release 24 hr lidocaine 5 % topical patch 1 patch topical DAILY PRN Pain 05/16/23 05/16/23 spironolactone 25 mg tablet 25 mg PO DAILY 05/16/23 05/16/23 zinc oxide 20 % topical ointment 1 appl topical QWEEK 05/16/23 05/16/23 Previous Rx's ?Medication ?Instructions ?Recorded lidocaine 5 % topical patch 1 patch topical DAILY PRN pain #15 05/16/23 ea Allergies Allergy/AdvReac Type Severity Reaction Status Date / Time No Known Allergies Allergy Verified 01/02/24 17:00 Review of Systems 2 Review of Systems: Yes all other systems are reviewed and are negative [facility] Past Medical History Medical History Paroxysmal atrial fibrillation COVID-19 vaccine series completed Diabetes GERD (gastroesophageal reflux disease) Chronic renal insufficiency COPD (chronic obstructive pulmonary disease) Asthma On anticoagulant therapy Elevated cholesterol Aortic valvular disease Pacemaker CHF (congestive heart failure) Myocardial infarction CAD (coronary artery disease) HTN (hypertension) Surgical History Hx of tonsillectomy Hx of cholecystectomy History of esophagogastroduodenoscopy (EGD) Hx of CABG Hx of heart artery stent Hx of aortic valve replacement History of hip surgery H/O colonoscopy Social History Social History Are you a primary nursing care attendant to a significant other at home: No Do you presently have visiting nurse or other home services: No Patient Tobacco Use Status: Never used Tobacco Smoked in Last 30 Days: No Use of substances other than those prescribed or required for medical reasons: No Advance Directives: No Advance Directives Information Provided: No Do you have a plan to hurt others: No Plan Physical Exam ED Vital Signs: Vital Signs - 24 hr 01/02/24 16:59 01/02/24 17:48 01/02/24 18:08 Temperature 98.1 F Pulse Rate 61 60 60 Respiratory Rate 15 11 L 12 Blood Pressure 139/67 149/47 H 141/53 H Pulse Oximetry 98 98 99 Oxygen Delivery Method Room Air Room Air Room Air 01/02/24 20:53 01/02/24 22:31 Temperature 97.7 F 97.7 F Pulse Rate 67 63 Respiratory Rate 9 L 10 L Blood Pressure 146/45 H 145/55 H Pulse Oximetry 99 98 Oxygen Delivery Method Room Air Room Air BMI result Body Mass Index 24.9 Appearance: Obtunded moving her extremities to painful stimuli only No acute distress. Eyes: PERRl, No Nystagmus ENT: Pharynx normal. Oral Mucosa moist Gag present Neck: Normal inspection. Neck supple. CVS: Normal heart rate and rhythm. Pulses normal. Respiratory: No respiratory distress. Equal air entry bilateral, no wheezing/rales/rhonchi Abdomen: Soft and nontender. Bowel sounds are present, no mass palpable, Skin: Skin warm and dry. Normal skin color. Normal skin turgor. Extremities: No lower extremity edema. No calf tenderness Neuro: Obtunded moving extremities to noxious stimuli. Medications Administered Generic Name Dose Route Start Last Admin Trade Name Freq PRN Reason Stop Dose Admin Sodium Chloride 3 ml 01/03/24 00:00 01/03/24 00:22 0.9 % Sodium Chloride Flush 3 Ml Syringe IVFLUSH Not Given QSHIFT RUPESH Discontinued Medications Generic Name Dose Route Start Last Admin Trade Name Freq PRN Reason Stop Dose Admin Sodium Chloride 1,000 mls @ 999 mls/hr 01/02/24 16:49 01/02/24 18:05 Ns IV 01/02/24 17:49 999 mls/hr .Q1H1M ONE Administration Ceftriaxone Sodium 1 gm/ 50 mls @ 100 mls/hr 01/02/24 17:33 01/02/24 21:26 Sodium Chloride IV 01/02/24 18:02 Infused ONCE ONE Infusion Naloxone HCl 0.2 mg 01/02/24 21:15 01/02/24 21:27 Naloxone Hcl 0.4 Mg/Ml Vial IVPUSH 01/02/24 21:16 0.2 mg STAT STA Administration Naloxone HCl 1 mg 01/02/24 23:27 01/02/24 23:39 Naloxone Hcl 2 Mg/2 Ml Syringe IVPUSH 01/02/24 23:28 1 mg ONCE ONE Administration Medical Decision Making Medical Decision Making [facility] Narrative: Patient with obtundation etiology not very clear has normal CT scan of the head is negative for acute creatinine might be side effect of the gabapentin last night patient was given Narcan without much response will admit patient to medical service patient's CT of the head negative for acute Differential Diagnosis Differential Diagnoses: The differential diagnosis associated with the presentation includes Metabolic encephalopathy/medication overdose/seizure disorder/CVA Admission/Observation Consideration of admission/observation: Escalation of care including admission/observation considered Consult Healthcare Provider Management of the patient was discussed with: Hospitalist Lab Data MDM Lab Attestation statement: I reviewed the patient's lab results. 01/02/24 17:34 01/02/24 17:33 Labs: Lab Results 01/02/24 01/02/24 01/02/24 Range/Units 17:33 17:34 21:16 WBC 8.5 (4.8-10.8) X10*3/uL RBC 3.58 L (4.20-5.50) X10*6/uL Hgb 9.0 L (12.0-16.0) g/dl Hct 27.3 L (37.0-47.0) % MCV 76.3 L (80.0-98.0) fL MCH 25.1 L (27.0-33.0) pg MCHC 33.0 (31.0-35.0) g/dl RDW 17.9 H (11.0-16.0) % Plt Count 193 (160-400) X10*3/uL MPV 11.5 (9.4-12.3) fL Immature Gran % (Auto) 0.2 (0.0-0.4) % Neut % (Auto) 59.9 (45-73) % Lymph % (Auto) 25.0 (20-40) % [place] % (Auto) 10.9 (2-11) % Eos % (Auto) 3.4 (0-4) % Baso % (Auto) 0.6 (0-2) % Lymph # (Auto) 2.1 (1.2-4.9) X10*3/uL [place] # (Auto) 0.9 (0.1-1.2) X10*3/uL Eos # (Auto) 0.3 (0.0-0.4) X10*3/uL Baso # (Auto) 0.1 (0.0-0.2) X10*3/uL Abs Immat Gran (auto) 0.02 (0.00-0.03) X10*3/uL Absolute Neuts (auto) 5.1 (2.0-8.3) x10*3/uL Absolute Nucleated RBC 0.000 (0.0-0.012) X10*3/uL Nucleated RBC % (auto) 0.0 (0.0-0.2) /100WBC PT 14.0 H (11.1-13.3) SEC INR 1.2 H (0.9-1.1) APTT 31.8 (26.0-36.8) SEC VBG pH (7.32-7.43) VBG pCO2 mmHg VBG pO2 mmHg VBG HCO3 (22-26) mmol/L VBG O2 Saturation % VBG Base Excess mmol/L Sodium 144 (135-145) mmol/L Potassium 4.0 (3.3-5.1) mmol/L Chloride 111 H (96-108) mmol/L Carbon Dioxide 23 (22-29) mmol/L Anion Gap 14 (12-20) BUN 39 H (9-16) mg/dL Creatinine 2.23 H (0.5-1.4) mg/dL Estim Creat Clear Calc 15.3 Estimated GFR 21 Random Glucose 93 (60-115) mg/dL Lactic Acid 1.8 (0.5-2.0) mmol/L Calcium 8.3 L (8.4-10.2) mg/dL Total Bilirubin 1.0 (0.0-1.0) mg/dL AST 86 H (5-31) U/L ALT 40 H (0-31) U/L Alkaline Phosphatase 116 (39-117) U/L Ammonia (13-55) umol/L Troponin I High Sens 30.3 H 29.4 H (<3.5-17.0) ng/L Total Protein 6.0 L (6.5-8.0) g/dL Albumin 2.5 L (3.5-5.0) g/dL Urine Color Urine Appearance Urine pH (5.0-9.0) Ur Specific [place] (1.005-1.025) Urine Protein (Neg-Trace) mg/dL Urine Glucose (UA) (Negative) mg/dL Urine Ketones (Negative) mg/dL Urine Blood (Negative) Urine Nitrite (Negative) Ur Leukocyte Esterase (Negative) COVID-19 (MICHAEL) Negative (Negative) COVID-19 Clin Com See Note 01/02/24 01/02/24 01/02/24 Range/Units 21:23 21:45 23:14 WBC (4.8-10.8) X10*3/uL RBC (4.20-5.50) X10*6/uL Hgb (12.0-16.0) g/dl Hct (37.0-47.0) % MCV (80.0-98.0) fL MCH (27.0-33.0) pg MCHC (31.0-35.0) g/dl RDW (11.0-16.0) % Plt Count (160-400) X10*3/uL MPV (9.4-12.3) fL Immature Gran % (Auto) (0.0-0.4) % Neut % (Auto) (45-73) % Lymph % (Auto) (20-40) % [place] % (Auto) (2-11) % Eos % (Auto) (0-4) % Baso % (Auto) (0-2) % Lymph # (Auto) (1.2-4.9) X10*3/uL [place] # (Auto) (0.1-1.2) X10*3/uL Eos # (Auto) (0.0-0.4) X10*3/uL Baso # (Auto) (0.0-0.2) X10*3/uL Abs Immat Gran (auto) (0.00-0.03) X10*3/uL Absolute Neuts (auto) (2.0-8.3) x10*3/uL Absolute Nucleated RBC (0.0-0.012) X10*3/uL Nucleated RBC % (auto) (0.0-0.2) /100WBC PT (11.1-13.3) SEC INR (0.9-1.1) APTT (26.0-36.8) SEC VBG pH 7.49 H (7.32-7.43) VBG pCO2 30 mmHg VBG pO2 96 mmHg VBG HCO3 23 (22-26) mmol/L VBG O2 Saturation 99.0 % VBG Base Excess 0.8 mmol/L Sodium (135-145) mmol/L Potassium (3.3-5.1) mmol/L Chloride (96-108) mmol/L Carbon Dioxide (22-29) mmol/L Anion Gap (12-20) BUN (9-16) mg/dL Creatinine (0.5-1.4) mg/dL Estim Creat Clear Calc Estimated GFR Random Glucose (60-115) mg/dL Lactic Acid (0.5-2.0) mmol/L Calcium (8.4-10.2) mg/dL Total Bilirubin (0.0-1.0) mg/dL AST (5-31) U/L ALT (0-31) U/L Alkaline Phosphatase (39-117) U/L Ammonia 81 H (13-55) umol/L Troponin I High Sens (<3.5-17.0) ng/L Total Protein (6.5-8.0) g/dL Albumin (3.5-5.0) g/dL Urine Color Yellow Urine Appearance Clear Urine pH 5.5 (5.0-9.0) Ur Specific [place] 1.015 (1.005-1.025) Urine Protein Negative (Neg-Trace) mg/dL Urine Glucose (UA) Negative (Negative) mg/dL Urine Ketones Negative (Negative) mg/dL Urine Blood Negative (Negative) Urine Nitrite Negative (Negative) Ur Leukocyte Esterase Negative (Negative) COVID-19 (MICHAEL) (Negative) COVID-19 Clin Com Critical Care Time Critical Care Time Critical Care Time: Yes Total Critical Care Time: 60 Attestation: The patient was critically ill with a high probability of imminent or life threatening deterioration. I spent greater than 65???minutes of discontinuous time evaluating the patient,delivering critical care at the bedside, discussing and evaluating pertinent data with consultants. Critical care time does not include time spent performing separately billable procedures or teaching. Total time spent performing critical care was 60???minutes. Discharge Plan Discharge Clinical Impression: Acute metabolic encephalopathy, Acute encephalopathy, Altered mental status Patient Disposition: Admitted As Inpatient
--- NOTE | 2024-01-02 16:49 | ECG_ITS ---
Test Reason : ams Blood Pressure : / mmHG Vent. Rate : 060 BPM Atrial Rate : 060 BPM P-R Int : 224 ms QRS Dur : 102 ms QT Int : 464 ms P-R-T Axes : 000 021 163 degrees QTc Int : 464 ms Atrial-paced rhythm with prolonged AV conduction Nonspecific ST and T wave abnormality Abnormal ECG No previous ECGs available Referred By: Perez Carrillo Electronically Signed By:HALIMA MINER
--- NOTE | 2024-01-02 17:37 | MHC.EDTECH ---
Patient blood drawn including 1 st of blood culture and lactic acid .Patient and daughter at bedside .
[2024-01-02 17:39] LABS: MANUAL DIFF FLAG NO
[2024-01-02 17:43] LABS: Basophils Absolute Auto 0.1 X10*3/uL (0.0-0.2); Basophils Percent Auto 0.6 % (0-2); Eosinophils Absolute Auto 0.3 X10*3/uL (0.0-0.4); Eosinophils Percent Auto 3.4 % (0-4); Hematocrit 27.3 % (37.0-47.0); Imm Gran Abs Auto 0.02 X10*3/uL (0.00-0.03); Imm Gran Pct Auto 0.2 % (0.0-0.4); Lymphocytes Absolute Auto 2.1 X10*3/uL (1.2-4.9); Mean Corpuscular Hemoglobin 25.1 pg (27.0-33.0); Mean Corpuscular Volume 76.3 fL (80.0-98.0); Mean Platelet Volume 11.5 fL (9.4-12.3); Monocytes Absolute Auto 0.9 X10*3/uL (0.1-1.2); Monocytes Percent Auto 10.9 % (2-11); Neutrophils Absolute Auto 5.1 x10*3/uL (2.0-8.3); Neutrophils Percent Auto 59.9 % (45-73); Platelet Count 193 X10*3/uL (160-400); Red Blood Count 3.58 X10*6/uL (4.20-5.50); Red Cell Distribution Width 17.9 % (11.0-16.0); White Blood Count 8.5 X10*3/uL (4.8-10.8)
[2024-01-02 17:45] LABS: INTERNATIONAL NORM RATIO 1.2 (0.9-1.1)
[2024-01-02 17:48] LABS: Partial Thromboplastin Time 31.8 SEC (26.0-36.8)
[2024-01-02 17:56] LABS: COVID-19 Test Negative (Negative); IDNOW Serial# 152EDE1D
[2024-01-02 17:58] LABS: Lactic Acid 1.8 mmol/L (0.5-2.0)
[2024-01-02 17:59] LABS: Alanine Aminotransferase 40 U/L (0-31); Albumin Level 2.5 g/dL (3.5-5.0); Alkaline Phosphatase 116 U/L (39-117); Anion Gap 14 (12-20); Aspartate Amino Transferase 86 U/L (5-31); Blood Urea Nitrogen 39 mg/dL (9-16); Calcium 8.3 mg/dL (8.4-10.2); Carbon Dioxide 23 mmol/L (22-29); Chloride 111 mmol/L (96-108); Creatinine Clr Calc Pharmacy 15.3; Estimated Glomerular Filt Rate 21; Glucose Random 93 mg/dL (60-115); Sodium 144 mmol/L (135-145)
[2024-01-02] MEDS: cefTRIAXone sodium 1 GM in 0.9 % Sodium Chloride 50 ML IV (18:05)
[2024-01-02] MEDS: 0.9 % Sodium Chloride 1,000 ML 999 ML IV (18:05)
[2024-01-02 18:08] LABS: Troponin-I High Sensitivity 30.3 ng/L (<3.5-17.0)
--- NOTE | 2024-01-02 21:06 | MHC.EDTECH ---
This tech check pt VS, pt deep asleep. provider aware.
[2024-01-02 21:27] LABS: VBG Base Excess 0.8 mmol/L; VBG HCO3 23 mmol/L (22-26); VBG pCO2 30 mmHg; VBG pH 7.49 (7.32-7.43); VBG pO2 96 mmHg
[2024-01-02] MEDS: Naloxone HCl 0.4 MG/ML VIAL 0.2 MG IVPUSH (21:27)
[2024-01-02 21:45] LABS: Venous Blood Gas Refer to POC result
--- NOTE | 2024-01-02 21:45 | PC.NURSE ---
Pt medicated per jul. Pt straight cath and UA collected and sent Plan of care ongoing.
[2024-01-02 21:50] LABS: Troponin-I High Sensitivity 29.4 ng/L (<3.5-17.0)
[2024-01-02 21:55] LABS: Appearance Urine Clear; Color Urine Yellow; Glucose Urine UA Negative (Negative); Leukocyte Esterase Urine Negative (Negative); Nitrite Urine Negative (Negative); PH 5.5 (5.0-9.0); Specific Gravity - Urine 1.015 (1.005-1.025); Urine Blood Negative (Negative); Urine Ketones Negative (Negative); Urine Protein Negative (Neg-Trace)
--- NOTE | 2024-01-02 22:43 | PHA.MEDREC ---
Addendum entered by Moises López [facility] 01/03/24 10:18: MED REC CHECKED BY [facility] Addendum entered by Mary Wyatt 01/03/24 09:34: Pharmacy has completed the medication reconciliation. Spoke to patient's daughter Leila to confirm med list. Daughter states patient is no longer on Famotidine. daughter states patient takes Lantus 15 units at bedtime. Daughter states patient takes Carvedilol 6.25 mg bid only when needed. patient heart rate has been good ,so patient hasn't had medication for a few months, last fill date was 03-11-23 Original Note: Pharmacy Consult ? Medication Reconciliation Pharmacy called [facility] @2100 for patient med list but when I called they could not find her as a patient in the system and they could not do anything since they couldn't find her at all. We will follow up with daughter in the Am to confirm.
--- NOTE | 2024-01-02 23:28 | P.HPHOSP_ITS ---
History of Present Illness Date of Service: 01/02/24 Chief Complaint: Altered mentation This is a 88-year-old female with pertinent history of paroxysmal atrial fibrillation not on anticoagulation, congestive heart failure, unspecified EF, chronic kidney disease, COPD not on home oxygen, coronary artery disease who was brought to the emergency department evaluation of altered mentation. Unable to obtain history from the patient as she is only responding to painful stimulus. Tried calling the patient's daughter but no response. History obtained with the help of ER provider and chart review. Apparently patient was found to be sleeping till 15:00 on the day of presentation. Patient was sleepy and patient's called the daughter who found her to be drowsy and subsequently called EMS. Unable to obtain review of systems Review of Systems 2 Review of Systems: Yes Unobtainable due to mental status [facility] Medical History Paroxysmal atrial fibrillation COVID-19 vaccine series completed Diabetes GERD (gastroesophageal reflux disease) Chronic renal insufficiency COPD (chronic obstructive pulmonary disease) Asthma On anticoagulant therapy Elevated cholesterol Aortic valvular disease Pacemaker CHF (congestive heart failure) Myocardial infarction CAD (coronary artery disease) HTN (hypertension) Surgical History Hx of tonsillectomy Hx of cholecystectomy History of esophagogastroduodenoscopy (EGD) Hx of CABG Hx of heart artery stent Hx of aortic valve replacement History of hip surgery H/O colonoscopy Social History Are you a primary assisted living care manager to a significant other at home: No Do you presently have visiting nurse or other home services: No Patient Tobacco Use Status: Never used Tobacco Smoked in Last 30 Days: No Use of substances other than those prescribed or required for medical reasons: No Advance Directives: No Advance Directives Information Provided: No Do you have a plan to hurt others: No Plan Meds Allergies Allergy/AdvReac Type Severity Reaction Status Date / Time No Known Allergies Allergy Verified 01/02/24 17:00 Active Medications: Current Medications Naloxone HCl (Naloxone Hcl 2 Mg/2 Ml Syringe) 1 mg IVPUSH ONCE ONE Stop: 01/02/24 23:28 Home Medications ?Medication ?Instructions ?Recorded ?Confirmed ?Last Taken ?Type albuterol sulfate 90 mcg/actuation 2 puff PO Q6H PRN wheezing 09/15/21 05/16/23 Unknown History aerosol inhaler amiodarone 200 mg tablet 1 tab PO DAILY 09/15/21 05/15/23 Unknown History atorvastatin 10 mg tablet 1 tab PO DAILY 09/15/21 05/15/23 Unknown History famotidine 20 mg tablet 1 tab PO DAILY PRN Heartburn 09/15/21 05/16/23 Unknown History furosemide 40 mg tablet 1 tab PO DAILY 09/15/21 05/16/23 Unknown History insulin glargine 100 unit/mL 14 unit subcut BEDTIME 09/15/21 05/16/23 Unknown History subcutaneous solution (Lantus U-100 Insulin) omega-3 acid ethyl esters 1 gram 2 cap PO DAILY 09/15/21 05/15/23 Unknown History capsule Refresh 1 drp ophthalmic (eye) BID 05/15/23 05/15/23 Unknown History aspirin 81 mg PO DAILY 05/15/23 05/15/23 Unknown History calcitonin (salmon) 200 1 spray intranasal DAILY 05/15/23 05/15/23 Unknown History unit/actuation nasal spray carvedilol 6.25 mg tablet 6.25 mg PO BID 05/15/23 05/15/23 Unknown History isosorbide mononitrate 60 mg 60 mg PO DAILY 05/16/23 05/16/23 Unknown History tablet,extended release 24 hr lidocaine 5 % topical patch 1 patch topical DAILY PRN Pain 05/16/23 05/16/23 Unknown History spironolactone 25 mg tablet 25 mg PO DAILY 05/16/23 05/16/23 Unknown History zinc oxide 20 % topical ointment 1 appl topical QWEEK 05/16/23 05/16/23 Unknown History Physical Exam 2 Vital Signs and Narrative: Vital Signs: Last Vital Signs Temp 97.7 F 01/02/24 22:31 Pulse 63 01/02/24 22:31 Resp 10 L 01/02/24 22:31 BP 145/55 H 01/02/24 22:31 Pulse Ox 98 01/02/24 22:31 O2 Del Method Room Air 01/02/24 22:31 BMI result Body Mass Index 24.9 Elderly female lying in bed in no distress Neck supple, no JVD Regular rate and rhythm, S1-S2 heard Regular breath sounds bilaterally, no wheezing or crackles appreciated Abdomen soft nontender, no guarding, no rigidity Patient is only eye opening to painful stimulus, unable to assess orientation, not following commands Psych: Drowsy No pedal edema Results Labs 01/02/24 17:34 01/02/24 17:33 Labs: Laboratory Results - last 24 hr 01/02/24 01/02/24 01/02/24 17:33 17:34 21:16 MCV 76.3 L MCH 25.1 L MCHC 33.0 RDW 17.9 H Plt Count 193 MPV 11.5 Immature Gran % (Auto) 0.2 Neut % (Auto) 59.9 Lymph % (Auto) 25.0 Mellette % (Auto) 10.9 Eos % (Auto) 3.4 Baso % (Auto) 0.6 Lymph # (Auto) 2.1 Mellette # (Auto) 0.9 Eos # (Auto) 0.3 Baso # (Auto) 0.1 Abs Immat Gran (auto) 0.02 Absolute Neuts (auto) 5.1 Absolute Nucleated RBC 0.000 Nucleated RBC % (auto) 0.0 PT 14.0 H INR 1.2 H APTT 31.8 VBG pH VBG pCO2 VBG pO2 VBG HCO3 VBG O2 Saturation VBG Base Excess Anion Gap 14 Estim Creat Clear Calc 15.3 Estimated GFR 21 Random Glucose 93 Lactic Acid 1.8 Calcium 8.3 L Total Bilirubin 1.0 AST 86 H ALT 40 H Alkaline Phosphatase 116 Troponin I High Sens 30.3 H 29.4 H Total Protein 6.0 L Albumin 2.5 L Urine Color Urine Appearance Urine pH Ur Specific [place] Urine Protein Urine Glucose (UA) Urine Ketones Urine Blood Urine Nitrite Ur Leukocyte Esterase COVID-19 (MICHAEL) Negative COVID-19 Clin Com See Note 01/02/24 01/02/24 21:23 21:45 MCV MCH MCHC RDW Plt Count MPV Immature Gran % (Auto) Neut % (Auto) Lymph % (Auto) [place] % (Auto) Eos % (Auto) Baso % (Auto) Lymph # (Auto) [place] # (Auto) Eos # (Auto) Baso # (Auto) Abs Immat Gran (auto) Absolute Neuts (auto) Absolute Nucleated RBC Nucleated RBC % (auto) PT INR APTT VBG pH 7.49 H VBG pCO2 30 VBG pO2 96 VBG HCO3 23 VBG O2 Saturation 99.0 VBG Base Excess 0.8 Anion Gap Estim Creat Clear Calc Estimated GFR Random Glucose Lactic Acid Calcium Total Bilirubin AST ALT Alkaline Phosphatase Troponin I High Sens Total Protein Albumin Urine Color Yellow Urine Appearance Clear Urine pH 5.5 Ur Specific [place] 1.015 Urine Protein Negative Urine Glucose (UA) Negative Urine Ketones Negative Urine Blood Negative Urine Nitrite Negative Ur Leukocyte Esterase Negative COVID-19 (MICHAEL) COVID-19 Clin Com Imaging Radiologist's Impressions: Impressions Chest X-Ray 01/02/24 17:01 IMPRESSION: Lung volumes are diminished. There is at least top normal cardiac size. No focal infiltrate or congestive heart failure is seen. Electronically signed by: Jovanny Hernandez MD 01/02/2024 08:17 PM EDT RP Head CT 01/02/24 17:01 IMPRESSION: 1. No evidence of acute intracranial hemorrhage or edematous territorial infarction. 2. Moderate underlying microangiopathy and generalized cerebral volume loss. 3. Moderate left posterior scalp hematoma/edema. No associated osseous abnormalities. Electronically signed by: Jed Cedeno DO 01/02/2024 07:20 PM EDT RP Assessment and Plan (1) Acute encephalopathy: Status: Acute Plan This is a 88-year-old female with pertinent history of paroxysmal atrial fibrillation not on anticoagulation, congestive heart failure, unspecified EF, chronic kidney disease, COPD not on home oxygen, coronary artery disease who was brought to the emergency department evaluation of altered mentation. #. Acute encephalopathy, unclear etiology: Patient on febrile and white count within normal limits. UA negative. VBG okay. Obtaining ammonia, TSH and B12. Patient took her home gabapentin as per daughter, ?contributing to encephalopathy in the setting of BLAKE. May need neurology and EEG if mentation does not improve #. Acute kidney injury on CKD: Monitor urine output and creatinine with crystalloid resuscitation. Avoid nephrotoxins. #. Paroxysmal atrial fibrillation: Not on anticoagulation. Rate controlled in the ER. #. Congestive heart failure, unspecified EF/coronary artery disease: Continue home p.o. prescription medications once mentation improves #. COPD: No exacerbation during admission Med rec pending DVT prophylaxis: Lovenox Full code. Readdress with family in a.m. Admit as inpatient and will require two night minimum hospital stay for close monitoring of mentation, monitoring of kidney function (as above), which is not possible in a lesser acute setting. Quality Stroke Does the patient have a stroke diagnosis?: No VTE Prior VTE?: No VTE Risk Level:: Medical - moderate - high VTE Device Contraindication: Treatment Not Indicated VTE Drug Contraindication: N/A - Med Ordered
[2024-01-02] MEDS: Naloxone HCl 2 MG/2 ML SYRINGE 1 MG IVPUSH (23:39)
--- NOTE | 2024-01-02 23:41 | PC.NURSE ---
Pt medicated per jul. Plan of care ongoing.
[2024-01-03 00:28] LABS: Glucose, Whole Blood 116 mg/dL (60-115)
[2024-01-03 00:29] LABS: Ammonia 81 umol/L (13-55)
[2024-01-03 01:16] VITALS: BP 152/53; PULSE 60; RESP 10; O2SAT 99
[2024-01-03 04:06] LABS: Glucose, Whole Blood 114 mg/dL (60-115)
[2024-01-03 05:16] LABS: MANUAL DIFF FLAG NO
[2024-01-03 05:17] LABS: Basophils Absolute Auto 0.1 X10*3/uL (0.0-0.2); Basophils Percent Auto 0.7 % (0-2); Eosinophils Absolute Auto 0.1 X10*3/uL (0.0-0.4); Eosinophils Percent Auto 0.9 % (0-4); Hematocrit 29.7 % (37.0-47.0); Hemoglobin 9.6 g/dl (12.0-16.0); Imm Gran Abs Auto 0.05 X10*3/uL (0.00-0.03); Imm Gran Pct Auto 0.5 % (0.0-0.4); Lymphocytes Absolute Auto 1.8 X10*3/uL (1.2-4.9); Lymphocytes Percent Auto 17.4 % (20-40); Mean Corpuscular HGB Conc 32.3 g/dl (31.0-35.0); Mean Corpuscular Hemoglobin 25.1 pg (27.0-33.0); Mean Corpuscular Volume 77.5 fL (80.0-98.0); Mean Platelet Volume 11.5 fL (9.4-12.3); Monocytes Percent Auto 9.4 % (2-11); Neutrophils Absolute Auto 7.5 x10*3/uL (2.0-8.3); Neutrophils Percent Auto 71.1 % (45-73); Platelet Count 182 X10*3/uL (160-400); Red Blood Count 3.83 X10*6/uL (4.20-5.50); Red Cell Distribution Width 17.7 % (11.0-16.0); White Blood Count 10.5 X10*3/uL (4.8-10.8)
[2024-01-03 05:37] LABS: Anion Gap 13 (12-20); Blood Urea Nitrogen 41 mg/dL (9-16); Calcium 8.4 mg/dL (8.4-10.2); Carbon Dioxide 21 mmol/L (22-29); Chloride 113 mmol/L (96-108); Creatinine Clr Calc Pharmacy 16.4; Estimated Glomerular Filt Rate 23; Glucose Random 136 mg/dL (60-115); Potassium 3.8 mmol/L (3.3-5.1); Sodium 143 mmol/L (135-145)
[2024-01-03 05:53] VITALS: BP 157/58; PULSE 60; RESP 10; TEMP 36.5; O2SAT 99
[2024-01-03 05:54] LABS: Thyroid Stimulating Hormone 3.16 uIU/mL (0.32-4.0)
[2024-01-03 05:58] LABS: Vitamin B12 1467 pg/mL (200-900)
--- NOTE | 2024-01-03 07:33 | P.PNIM_ITS ---
Subjective Subjective Date of Service: 01/03/24 Interval History: Seen in follow up for encephalopathy Interval history: Remains encephalopathic, arousable to light touch, looks in my direction but does not open eyes. Mumbles ouch but unable to localize area of pain on exam. Review of Systems Review of Systems: Yes Unobtainable due to mental status Physical Exam 2 Vital Signs: Vital Signs: Last Vital Signs Temp 97.7 F 01/03/24 05:53 Pulse 60 01/03/24 05:53 Resp 10 L 01/03/24 05:53 BP 157/58 H 01/03/24 05:53 Pulse Ox 99 01/03/24 05:53 O2 Del Method Room Air 01/03/24 05:53 BMI result Body Mass Index 24.9 Constitutional - Awake and Alert, No apparent distress Eyes - PERRLA, EOMI Cardiovascular - S1S2, RRR, No edema Respiratory - Normal lung expansion, Normal respiratory effort, No respiratory distress, CTA bilaterally Gastrointestinal - NT / ND; +BS; No rebound or guarding Extremities - no calf tenderness bilaterally, no swelling Skin - Warm/Dry. Stage 2 decubitus ulcer sacrum without purulent drainage Neurological - Arousable to light touch, nonverbal except mumbling ouch but unable to localize area of pain on exam. Not opening eyes Psychological - Appropriate affect Objective Data Active Medications Acetaminophen (Acetaminophen 325 Mg Tablet) 650 mg PO Q6H PRN PRN Reason: Pain, Mild (Pain Scale 1-3), fever or headache Calcium Carbonate (Calcium Carbonate 750 Mg Tab.Chew) 750 mg PO Q4H PRN PRN Reason: Heartburn Enoxaparin Sodium (Enoxaparin Sodium 30 Mg/0.3 Ml Syringe) 30 mg SUBCUT Q24H [facility] Glucose (Glucose Gel 15 Gm Gel..Gram.) 15 gm PO Q15M PRN; Protocol PRN Reason: per Hypoglycemia Standing Ord. Dextrose (D10) 250 mls @ 750 mls/hr IV Q15M PRN; Protocol PRN Reason: per Hypoglycemia Standing Ord. Insulin Human Lispro (Insulin Lispro 100 Unit/Ml 3 Ml Vial) 0 unit SUBCUT Q6H [facility]; Protocol Last Admin: 01/03/24 04:09 Dose: Not Given Documented By: DIMA Non-Admin Reason: No Insulin Coverage Lactulose (Lactulose 20 Gm/30 Ml Solution) 20 gm PO BID [facility] Magnesium Hydroxide (Milk Of Magnesia 30 Ml Oral.Susp) 30 ml PO DAILY PRN PRN Reason: Constipation Melatonin (Melatonin 3 Mg Tablet) 6 mg PO BEDTIME PRN PRN Reason: Insomnia Ondansetron HCl (Ondansetron Hcl 4 Mg/2 Ml Vial) 4 mg IVPUSH Q8H PRN PRN Reason: Nausea and Vomiting Sodium Chloride (0.9 % Sodium Chloride Flush 3 Ml Syringe) 3 ml IVFLUSH QSHIFT [facility] Last Admin: 01/03/24 00:22 Dose: Not Given Documented By: DIMA Non-Admin Reason: IV Running Labs 01/03/24 04:47 01/03/24 04:47 Labs: Laboratory Results - last 24 hr 01/02/24 01/02/24 01/02/24 17:33 17:34 21:16 MCV 76.3 L MCH 25.1 L MCHC 33.0 RDW 17.9 H Plt Count 193 MPV 11.5 Immature Gran % (Auto) 0.2 Neut % (Auto) 59.9 Lymph % (Auto) 25.0 [place] % (Auto) 10.9 Eos % (Auto) 3.4 Baso % (Auto) 0.6 Lymph # (Auto) 2.1 [place] # (Auto) 0.9 Eos # (Auto) 0.3 Baso # (Auto) 0.1 Abs Immat Gran (auto) 0.02 Absolute Neuts (auto) 5.1 Absolute Nucleated RBC 0.000 Nucleated RBC % (auto) 0.0 PT 14.0 H INR 1.2 H APTT 31.8 VBG pH VBG pCO2 VBG pO2 VBG HCO3 VBG O2 Saturation VBG Base Excess Anion Gap 14 Estim Creat Clear Calc 15.3 Estimated GFR 21 POC Glucose Random Glucose 93 Lactic Acid 1.8 Calcium 8.3 L Total Bilirubin 1.0 AST 86 H ALT 40 H Alkaline Phosphatase 116 Ammonia Troponin I High Sens 30.3 H 29.4 H Total Protein 6.0 L Albumin 2.5 L Vitamin B12 TSH Urine Color Urine Appearance Urine pH Ur Specific [place] Urine Protein Urine Glucose (UA) Urine Ketones Urine Blood Urine Nitrite Ur Leukocyte Esterase COVID-19 (MICHAEL) Negative COVID-19 Clin Com See Note 01/02/24 01/02/24 01/02/24 21:23 21:45 23:14 MCV MCH MCHC RDW Plt Count MPV Immature Gran % (Auto) Neut % (Auto) Lymph % (Auto) [place] % (Auto) Eos % (Auto) Baso % (Auto) Lymph # (Auto) [place] # (Auto) Eos # (Auto) Baso # (Auto) Abs Immat Gran (auto) Absolute Neuts (auto) Absolute Nucleated RBC Nucleated RBC % (auto) PT INR APTT VBG pH 7.49 H VBG pCO2 30 VBG pO2 96 VBG HCO3 23 VBG O2 Saturation 99.0 VBG Base Excess 0.8 Anion Gap Estim Creat Clear Calc Estimated GFR POC Glucose Random Glucose Lactic Acid Calcium Total Bilirubin AST ALT Alkaline Phosphatase Ammonia 81 H Troponin I High Sens Total Protein Albumin Vitamin B12 TSH Urine Color Yellow Urine Appearance Clear Urine pH 5.5 Ur Specific [place] 1.015 Urine Protein Negative Urine Glucose (UA) Negative Urine Ketones Negative Urine Blood Negative Urine Nitrite Negative Ur Leukocyte Esterase Negative COVID-19 ([facility]EL) COVID-19 Clin Com 01/03/24 01/03/24 01/03/24 00:24 04:02 04:47 MCV 77.5 L MCH 25.1 L MCHC 32.3 RDW 17.7 H Plt Count 182 MPV 11.5 Immature Gran % (Auto) 0.5 H Neut % (Auto) 71.1 Lymph % (Auto) 17.4 L [place] % (Auto) 9.4 Eos % (Auto) 0.9 Baso % (Auto) 0.7 Lymph # (Auto) 1.8 [place] # (Auto) 1.0 Eos # (Auto) 0.1 Baso # (Auto) 0.1 Abs Immat Gran (auto) 0.05 H Absolute Neuts (auto) 7.5 Absolute Nucleated RBC 0.000 Nucleated RBC % (auto) 0.0 PT INR APTT VBG pH VBG pCO2 VBG pO2 VBG HCO3 VBG O2 Saturation VBG Base Excess Anion Gap 13 Estim Creat Clear Calc 16.4 Estimated GFR 23 POC Glucose 116 H 114 Random Glucose 136 H Lactic Acid Calcium 8.4 Total Bilirubin AST ALT Alkaline Phosphatase Ammonia Troponin I High Sens Total Protein Albumin Vitamin B12 1467 H TSH 3.16 Urine Color Urine Appearance Urine pH Ur Specific [place] Urine Protein Urine Glucose (UA) Urine Ketones Urine Blood Urine Nitrite Ur Leukocyte Esterase COVID-19 (MICHAEL) COVID-19 Clin Com Assessment and Plan (1) Acute encephalopathy: Status: Acute Plan 88-year-old female with pertinent history of paroxysmal atrial fibrillation not on anticoagulation, congestive heart failure, unspecified EF, chronic kidney disease, COPD not on home oxygen, coronary artery disease who was admitted last night due to acute encephalopathy #Acute toxic metabolic encephalopathy -no evidence of infection on admission, afebrile, mildly hypertensive but VS overall stable. -no hypercapnia, uremia. Vitamin B12 slightly elevated. TSH WNL -Urine tox screen added. Check salicylates and acetaminophen levels -ammonia level elevated at 81. No known history of chronic liver disease/cirrhosis. Hold lasix/albuterol. Adminsiter lactulose 200mg [place] q6h. GI consult. RUQ US pending -hold gabapenin -consider neurology consult/EEG -Keep NPO for now, monitor mentation. 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 Holding PO diuretics due to BLAKE #COPD -No exacerbation during admission #Chronic anemia- now microcytic -check iron studies -no evidence of bleeding, above transfusion threshold #Stage 2 decubitus ulcer sacrum- present on admission -wound care consult. Offloading/turn and position DVT prophylaxis: Lovenox Full code. Requires ongoing inpt hospital stay for close monitoring of mentation, monitoring of kidney function (as above), and expert consultation Quality Stroke Does the patient have a stroke diagnosis?: No VTE Prior VTE?: No VTE Risk Level:: Medical - moderate - high VTE Device Contraindication: Treatment Not Indicated VTE Drug Contraindication: N/A - Med Ordered
[2024-01-03] MEDS: 0.9 % Sodium Chloride Flush 3 ML SYRINGE IVFLUSH (07:44)
[2024-01-03 07:58] VITALS: BP 168/58; PULSE 62; RESP 12; TEMP 36.4; O2SAT 99
[2024-01-03 08:00] VITALS: BP 153/65; PULSE 65; RESP 17; TEMP 36.6; O2SAT 98
--- NOTE | 2024-01-03 08:02 | PC.NURSE ---
this RN resumed care of pt at 0645. pt alert and oriented to physical/painful stimuli only. pt moans out in pain as she is moved. otherwise pt unable to answer questions/follow commands appropriately. remains disoriented. vss and up to date. rectal temp obtained as pt was warm to the touch but remains afebrile. nsr on the engine monitor. when turning/repositioning pt - stage 2 pressure ulcer noted to pt's bottom. admitting provider notified/aware. pt turned/repositioned to comfort. wound consult placed by admitting provider. pt remains on RA w/o difficulty. resting at 98% in no apparent distress. no sob/wob noted. respirations even/unlabored. plan of care ongoing. call malloy placed within reach.
[2024-01-03] MEDS: Lactated Ringers 1,000 ML 100 ML IVCONT ×2 (08:24→18:24)
[2024-01-03] MEDS: Enoxaparin Sodium 30 MG/0.3 ML SYRINGE SUBCUT (09:22)
--- NOTE | 2024-01-03 09:23 | PHA.MEDREC ---
Pharmacy Consult ? Medication Reconciliation Pharmacy has completed the medication reconciliation. Spoke to patient's daughter Leila to confirm med list. Daughter states patient is no longer on Famotidine. daughter states patient takes Lantus 15 units at bedtime. Daughter states patient takes Carvedilol 6.25 mg bid only when needed. patient heart rate has been good ,so patient hasn't had medication for a few months, last fill date was 03-11-23 left of med list
[2024-01-03 09:57] LABS: Glucose, Whole Blood 125 mg/dL (60-115)
[2024-01-03 11:06] VITALS: BMI 25.8
--- NOTE | 2024-01-03 11:21 | PM.GICN ---
History of Present Illness Data of Consult Service Date: 01/03/24 Requesting physician: Criselda Velasquez Primary Care Provider: Karley Cohen MD [facility] Reason for consult: hyperammonemia This is an 88-year-old female with past medical history of proximal atrial fibrillation, diabetes, chronic renal insufficiency, COPD, who was brought to the hospital for altered mental status. History was obtained from chart review and reportedly patient had been found to be excessively sleepy and drowsy by her family at home. In the emergency room, she was noted to be hypertensive but otherwise stable vitals. Labs significant for BLAKE on CKD, mildly elevated transaminases, and mildly elevated ammonia. CT head without contrast without any evidence of intracranial hemorrhage. Blood cultures pending. At bedside evaluation, patient is lethargic, but awakens to her name. She is unable to say why she is here, but moans in distress. Review of Systems Review of Systems: Yes Unobtainable due to mental status PMFSH Past Medical History Medical History Paroxysmal atrial fibrillation COVID-19 vaccine series completed Diabetes GERD (gastroesophageal reflux disease) Chronic renal insufficiency COPD (chronic obstructive pulmonary disease) Asthma On anticoagulant therapy Elevated cholesterol Aortic valvular disease Pacemaker CHF (congestive heart failure) Myocardial infarction CAD (coronary artery disease) HTN (hypertension) Surgical History Surgical History Hx of tonsillectomy Hx of cholecystectomy History of esophagogastroduodenoscopy (EGD) Hx of CABG Hx of heart artery stent Hx of aortic valve replacement History of hip surgery H/O colonoscopy Social History Social History Household Members: Spouse Housing: Other Are you a primary ambulatory care coordinator to a significant other at home: No Do you presently have visiting nurse or other home services: No Patient Tobacco Use Status: Never used Tobacco Meds Allergies Allergy/AdvReac Type Severity Reaction Status Date / Time No Known Allergies Allergy Verified 01/02/24 17:00 Active Medications: Current Medications Acetaminophen (Acetaminophen 325 Mg Tablet) 650 mg PO Q6H PRN PRN Reason: Pain, Mild (Pain Scale 1-3), fever or headache Amiodarone HCl (Amiodarone Hcl 200 Mg Tablet) 200 mg PO DAILY [facility] Aspirin (Aspirin Enteric Coated 81 Mg Tablet.Dr) 81 mg PO DAILY [facility] Atorvastatin Calcium (Atorvastatin Calcium 20 Mg Tablet) 100 mg PO BEDTIME [facility] Calcitonin Arp (Calcitonin,[place],Synth Nasal 3.7 Ml Bottle) 1 spray NOSTRIL-B DAILY [facility] Calcium Carbonate (Calcium Carbonate 750 Mg Tab.Chew) 750 mg PO Q4H PRN PRN Reason: Heartburn Enoxaparin Sodium (Enoxaparin Sodium 30 Mg/0.3 Ml Syringe) 30 mg SUBCUT Q24H [facility] Last Admin: 01/03/24 09:22 Dose: 30 mg Glucose (Glucose Gel 15 Gm Gel..Gram.) 15 gm PO Q15M PRN; Protocol PRN Reason: per Hypoglycemia Standing Ord. Dextrose (D10) 250 mls @ 750 mls/hr IV Q15M PRN; Protocol PRN Reason: per Hypoglycemia Standing Ord. Lactated Ringer's (Lr) 1,000 mls @ 100 mls/hr IVCONT .Q10H [facility] Last Admin: 01/03/24 08:24 Dose: 100 mls/hr Insulin Human Lispro (Insulin Lispro 100 Unit/Ml 3 Ml Vial) 0 unit SUBCUT Q6H [facility]; Protocol Last Admin: 01/03/24 10:22 Dose: Not Given Lactulose (Lactulose 320 Gm/480 Ml Solution) 200 gm [place] Q6H [facility] Lidocaine (Lidocaine 4 % Patch Adh..Patch) 1 patch TRANSDERMA DAILY PRN PRN Reason: pain Magnesium Hydroxide (Milk Of Magnesia 30 Ml Oral.Susp) 30 ml PO DAILY PRN PRN Reason: Constipation Melatonin (Melatonin 3 Mg Tablet) 6 mg PO BEDTIME PRN PRN Reason: Insomnia Ondansetron HCl (Ondansetron Hcl 4 Mg/2 Ml Vial) 4 mg IVPUSH Q8H PRN PRN Reason: Nausea and Vomiting Sodium Chloride (0.9 % Sodium Chloride Flush 3 Ml Syringe) 3 ml IVFLUSH QSHIFT [facility] Last Admin: 01/03/24 07:44 Dose: 3 ml Spironolactone (Spironolactone 25 Mg Tablet) 25 mg PO DAILY [facility]; Protocol Zinc Oxide (Zinc Oxide 20% Ointment 28.35 Gm Tube) 1 appl TOPICAL DAILY [facility]; Protocol Home Medications ?Medication ?Instructions ?Recorded ?Confirmed ?Last Taken ?Type albuterol sulfate 90 mcg/actuation 2 puff PO Q6H PRN wheezing 09/15/21 01/03/24 Unknown History aerosol inhaler amiodarone 200 mg tablet 200 mg PO DAILY 09/15/21 01/03/24 01/01/24 History atorvastatin 10 mg tablet 10 tab PO BEDTIME 09/15/21 01/03/24 01/01/24 History furosemide 40 mg tablet 40 mg PO DAILY 09/15/21 01/03/24 01/01/24 History insulin glargine 100 unit/mL 15 unit subcut BEDTIME 09/15/21 01/03/24 01/01/24 History subcutaneous solution (Lantus U-100 Insulin) omega-3 acid ethyl esters 1 gram 2 cap PO DAILY 09/15/21 01/03/24 01/01/24 History capsule calcitonin (salmon) 200 1 spray intranasal DAILY 05/15/23 01/03/24 01/01/24 History unit/actuation nasal spray spironolactone 25 mg tablet 25 mg PO DAILY 05/16/23 01/03/24 01/01/24 History zinc oxide 20 % topical ointment 1 appl topical DAILY 05/16/23 01/03/24 01/01/24 History aspirin 81 mg tablet,delayed 81 mg PO DAILY 01/03/24 01/03/24 01/01/24 History release gabapentin 100 mg capsule 100 mg PO BID 01/03/24 01/03/24 Unknown History Physical Exam Vital Signs: Vital Signs: Last Vital Signs Temp 98 F 01/03/24 08:00 Pulse 65 01/03/24 08:00 Resp 17 01/03/24 08:00 BP 153/65 H 01/03/24 08:00 Pulse Ox 98 01/03/24 08:00 O2 Del Method Room Air 01/03/24 08:00 BMI result Body Mass Index 25.8 Frail elderly female Pale appearing winces to palpation almost anywhere on the body lower extremity edema no asterixis elicited on exam Results Labs 01/03/24 04:47 01/03/24 04:47 Labs: Short CBC 01/02/24 01/03/24 Range/Units 17:34 04:47 WBC 8.5 10.5 (4.8-10.8) X10*3/uL Hgb 9.0 L 9.6 L (12.0-16.0) g/dl Hct 27.3 L 29.7 L (37.0-47.0) % Plt Count 193 182 (160-400) X10*3/uL BMP 01/02/24 01/03/24 17:33 04:47 Sodium 144 143 Potassium 4.0 3.8 Chloride 111 H 113 H Carbon Dioxide 23 21 L BUN 39 H 41 H Creatinine 2.23 H 2.08 H Calcium 8.3 L 8.4 Liver Function 01/02/24 Range/Units 17:33 Total Bilirubin 1.0 (0.0-1.0) mg/dL AST 86 H (5-31) U/L ALT 40 H (0-31) U/L Alkaline Phosphatase 116 (39-117) U/L Albumin 2.5 L (3.5-5.0) g/dL Urine 01/02/24 Range/Units 21:45 Urine Color Yellow Urine Appearance Clear Urine pH 5.5 (5.0-9.0) Ur Specific [place] 1.015 (1.005-1.025) Urine Protein Negative (Neg-Trace) mg/dL Urine Glucose (UA) Negative (Negative) mg/dL Assessment and Plan (1) Altered mental status: Status: Acute (2) Acute encephalopathy: Status: Acute (3) Acute kidney injury: Status: Acute Plan Differentials for encephalopathy include toxic, metabolic, drug-induced, hepatic. Will need complete workup for evaluation of acute encephalopathy as per primary team. From liver standpoint, recommend ultrasound abdomen. Should also consider renal workup and ? uremic encephalopathy given worsening BLAKE. In the meantime, agree with lactulose enema Can also add lactulose or rifaximin PO if pt able to swallow safely or through NGT Consider checking tox screen, med hx, ABG, EEG etc for w/up of acute encephalopathy Thank you for allowing me to participate in her care. Please do not hesitate to reach out for any questions or concerns. Procedures Date of Service Date of Service: 01/03/24
[2024-01-03 11:36] LABS: Alanine Aminotransferase 42 U/L (0-31); Albumin Level 2.5 g/dL (3.5-5.0); Alkaline Phosphatase 110 U/L (39-117); Aspartate Amino Transferase 88 U/L (5-31); Bilirubin Direct 0.5 mg/dL (0.0-0.5); Bilirubin Total 0.9 mg/dL (0.0-1.0); Total Protein 6.2 g/dL (6.5-8.0)
[2024-01-03] MEDS: Lactulose 320 GM/480 ML SOLUTION 200 GM PR ×2 (11:59→20:55)
[2024-01-03 12:02] LABS: Amphetamine Screen Urine Not Detected (Not Detect); Barbiturates, Urine Not Detected (Not Detect); Benzodiazepines Screen Urine Not Detected (Not Detect); Buprenorphine Scr Not Detected (Not Detect); Cannabinoid Screen Urine Not Detected (Not Detect); Cocaine Screen Urine Not Detected (Not Detect); Fentanyl, urine Not Detected (Not Detect); Methadone Screen, Urine Not Detected (Not Detect); Opiate Screen Urine Not Detected (Not Detect); Oxycodone Screen Urine Not Detected (Not Detect); Phencyclidine Screen Urine Not Detected (Not Detect)
[2024-01-03 12:05] LABS: Acetaminophen LAB < 3 mcg/mL (<30); Salicylate < 5.0 mg/dL (15-30)
--- NOTE | 2024-01-03 12:47 | HO.SKINPHOTO ---
coccyx wound - pink foam dsg applied
[2024-01-03 13:42] LABS: Iron 46 mcg/dL (30-160); Percent Iron Saturation 19 % (15-50); Total Iron Binding Capacity 246 mcg/dL (228-428); Unsaturated Iron Binding 200 ug/dL
[2024-01-03 14:03] LABS: Ferritin 97 ng/mL (10-250)
[2024-01-03 15:54] VITALS: BP 133/60; PULSE 63; RESP 18; TEMP 36.1; O2SAT 98
[2024-01-03 16:08] LABS: Glucose, Whole Blood 103 mg/dL (60-115)
--- NOTE | 2024-01-03 16:51 | MHC.SLORD ---
Speech Language Pathology Order Status: HOTEL VALET ATTENDANT consultation received. Hospitalist notified that HOTEL VALET ATTENDANT will see pt tomorrow AM during HOTEL VALET ATTENDANT inpatient hours.
--- NOTE | 2024-01-03 16:52 | MHC.SLORD ---
Speech Language Pathology Order Status: MACHINE SCALLOP CUTTER consultation received. Hospitalist reports pt likely not appropriate to participate on this date. Hospitalist notified that MACHINE SCALLOP CUTTER will see pt tomorrow AM during MACHINE SCALLOP CUTTER inpatient hours.
[2024-01-03 19:34] VITALS: BP 134/73; PULSE 64; RESP 18; TEMP 36.1; O2SAT 95
--- NOTE | 2024-01-03 19:54 | P.CONNP_ITS ---
History of Present Illness Reason for Consult Consult date: 01/03/24 Reason for consult: BLAKE Chief Complaint Chief complaint: AMS History of Present Illness Narrative: 88-year-old female with pertinent history of paroxysmal atrial fibrillation not on anticoagulation, congestive heart failure, unspecified EF, chronic kidney disease, COPD not on home oxygen, coronary artery disease who was brought to the emergency department evaluation of altered mentation. Review of Systems Review of Systems Yes Unobtainable due to mental condition PMFSH Past Medical History Medical History Paroxysmal atrial fibrillation COVID-19 vaccine series completed Diabetes GERD (gastroesophageal reflux disease) Chronic renal insufficiency COPD (chronic obstructive pulmonary disease) Asthma On anticoagulant therapy Elevated cholesterol Aortic valvular disease Pacemaker CHF (congestive heart failure) Myocardial infarction CAD (coronary artery disease) HTN (hypertension) Surgical History Surgical History Hx of tonsillectomy Hx of cholecystectomy History of esophagogastroduodenoscopy (EGD) Hx of CABG Hx of heart artery stent Hx of aortic valve replacement History of hip surgery H/O colonoscopy Social History Social History Household Members: Spouse Housing: Other Are you a primary post anesthesia care unit nurse to a significant other at home: No Do you presently have visiting nurse or other home services: No Patient Tobacco Use Status: Never used Tobacco Meds Allergies Allergy/AdvReac Type Severity Reaction Status Date / Time No Known Allergies Allergy Verified 01/02/24 17:00 Active Medications: Current Medications Acetaminophen (Acetaminophen 325 Mg Tablet) 650 mg PO Q6H PRN PRN Reason: Pain, Mild (Pain Scale 1-3), fever or headache Amiodarone HCl (Amiodarone Hcl 200 Mg Tablet) 200 mg PO DAILY [facility] Aspirin (Aspirin Enteric Coated 81 Mg Tablet.Dr) 81 mg PO DAILY [facility] Atorvastatin Calcium (Atorvastatin Calcium 20 Mg Tablet) 100 mg PO BEDTIME [facility] Calcitonin [place] (Calcitonin,[place],Synth Nasal 3.7 Ml Bottle) 1 spray NOSTRIL-B DAILY [facility] Calcium Carbonate (Calcium Carbonate 750 Mg Tab.Chew) 750 mg PO Q4H PRN PRN Reason: Heartburn Enoxaparin Sodium (Enoxaparin Sodium 30 Mg/0.3 Ml Syringe) 30 mg SUBCUT Q24H [facility] Last Admin: 01/03/24 09:22 Dose: 30 mg Glucose (Glucose Gel 15 Gm Gel..Gram.) 15 gm PO Q15M PRN; Protocol PRN Reason: per Hypoglycemia Standing Ord. Dextrose (D10) 250 mls @ 750 mls/hr IV Q15M PRN; Protocol PRN Reason: per Hypoglycemia Standing Ord. Lactated Ringer's (Lr) 1,000 mls @ 100 mls/hr IVCONT .Q10H [facility] Last Admin: 01/03/24 18:24 Dose: 100 mls/hr Insulin Human Lispro (Insulin Lispro 100 Unit/Ml 3 Ml Vial) 0 unit SUBCUT Q6H [facility]; Protocol Last Admin: 01/03/24 16:11 Dose: Not Given Lactulose (Lactulose 320 Gm/480 Ml Solution) 200 gm [place] Q6H [facility] Lidocaine (Lidocaine 4 % Patch Adh..Patch) 1 patch TRANSDERMA DAILY PRN PRN Reason: pain Magnesium Hydroxide (Milk Of Magnesia 30 Ml Oral.Susp) 30 ml PO DAILY PRN PRN Reason: Constipation Melatonin (Melatonin 3 Mg Tablet) 6 mg PO BEDTIME PRN PRN Reason: Insomnia Ondansetron HCl (Ondansetron Hcl 4 Mg/2 Ml Vial) 4 mg IVPUSH Q8H PRN PRN Reason: Nausea and Vomiting Sodium Chloride (0.9 % Sodium Chloride Flush 3 Ml Syringe) 3 ml IVFLUSH QSHIFT [facility] Last Admin: 01/03/24 15:06 Dose: Not Given Zinc Oxide (Zinc Oxide 20% Ointment 28.35 Gm Tube) 1 appl TOPICAL DAILY [facility]; Protocol Home Medications ?Medication ?Instructions ?Recorded ?Confirmed ?Last Taken ?Type albuterol sulfate 90 mcg/actuation 2 puff PO Q6H PRN wheezing 09/15/21 01/03/24 Unknown History aerosol inhaler amiodarone 200 mg tablet 200 mg PO DAILY 09/15/21 01/03/24 01/01/24 History atorvastatin 10 mg tablet 10 tab PO BEDTIME 09/15/21 01/03/24 01/01/24 History furosemide 40 mg tablet 40 mg PO DAILY 09/15/21 01/03/24 01/01/24 History insulin glargine 100 unit/mL 15 unit subcut BEDTIME 05/02/2701/03/24 01/01/24 History subcutaneous solution (Lantus U-100 Insulin) omega-3 acid ethyl esters 1 gram 2 cap PO DAILY 09/15/21 01/03/24 01/01/24 History capsule calcitonin (salmon) 200 1 spray intranasal DAILY 05/15/23 01/03/24 01/01/24 History unit/actuation nasal spray spironolactone 25 mg tablet 25 mg PO DAILY 05/16/23 01/03/24 01/01/24 History zinc oxide 20 % topical ointment 1 appl topical DAILY 05/16/23 01/03/24 01/01/24 History aspirin 81 mg tablet,delayed 81 mg PO DAILY 01/03/24 01/03/24 01/01/24 History release gabapentin 100 mg capsule 100 mg PO BID 01/03/24 01/03/24 Unknown History Physical Exam Vital Signs: Last Vital Signs Temp 97 F 01/03/24 19:34 Pulse 64 01/03/24 19:34 Resp 18 01/03/24 19:34 BP 134/73 01/03/24 19:34 Pulse Ox 95 01/03/24 19:34 O2 Del Method Room Air 01/03/24 19:34 BMI result Body Mass Index 25.8 Const General: ill appearing Neck Neck: Yes supple Resp Auscultation: clear to auscultation bilaterally Cardio Palpation: no palpable S3 Heart sounds: no rubs GI Palpation (GI): Soft to palpation Auscultation: normal bowel sounds Neuro Motor exam (neuro): no asterixis Results Lab Results 01/03/24 04:47 01/03/24 04:47 Lab results: Chemistry 01/02/24 01/03/24 17:33 04:47 Sodium 144 143 Potassium 4.0 3.8 Carbon Dioxide 23 21 L BUN 39 H 41 H Creatinine 2.23 H 2.08 H Calcium 8.3 L 8.4 Hematology 01/02/24 01/03/24 17:34 04:47 WBC 8.5 10.5 Hgb 9.0 L 9.6 L Plt Count 193 182 Urinalysis 01/02/24 21:45 Urine Color Yellow Urine Appearance Clear Urine pH 5.5 Ur Specific [place] 1.015 Urine Protein Negative Urine Glucose (UA) Negative Urine Ketones Negative Urine Blood Negative Urine Nitrite Negative Ur Leukocyte Esterase Negative Assessment and Plan (1) Acute kidney injury: Status: Acute Plan blake due t o hypoperfusion ATN/AGN unlikely based on bland urine findings No obstruction based on sonogram Suggest HOLD LASIX and ALDACTONE Keep I > O Urine studies and serology as ordered NO indication for dialysis today Procedures Date of Service Date of Service: 01/03/24
[2024-01-03] MEDS: Morphine Sulfate 2 MG/ML CARTRIDGE IVPUSH (21:36)
[2024-01-03 21:45] LABS: Glucose, Whole Blood 120 mg/dL (60-115)
--- NOTE | 2024-01-03 22:07 | HO.WOUND ---
Wound Consult: Initial 88 yr old female admitted to [facility] on 01/02/24 - see H&P for detailed history. Wound consult placed for Sacral wound POA. Sacrum Etiology: Deep Tissue Injury in Evolution Wound Bed: dark purple nonblanhable tissue with wound edges noted for serous filled blisters Periwound: pink slow to lori tissue Treatment: Triad to allow for moist wound healing and foam to protect from friction and aid in off loading Sacrum: Routine Cleansing - Apply Triad to wound bed - do not scrub between dressing changes Cover with sacral foam dressing. Change every 3 days and PRN.
[2024-01-04] MEDS: Lactated Ringers 1,000 ML 100 ML IVCONT (03:39)
[2024-01-04 04:00] VITALS: BP 114/51; PULSE 60; RESP 16; TEMP 36.8; O2SAT 97
[2024-01-04 04:14] LABS: Creatinine Urine 116.19 mg/dL; Total Protein Urine Random < 7 mg/dL (<12)
[2024-01-04 04:32] LABS: Glucose, Whole Blood 83 mg/dL (60-115)
[2024-01-04 06:57] VITALS: BP 120/58; PULSE 72; RESP 18; TEMP 36.8; O2SAT 97
[2024-01-04 07:05] LABS: Glucose, Whole Blood 78 mg/dL (60-115)
[2024-01-04] MEDS: Lactulose 320 GM/480 ML SOLUTION 200 GM PR ×2 (07:29→11:29)
[2024-01-04] MEDS: Dextrose 5 % and Lactated Ring 1,000 ML 100 ML IVCONT (07:47)
[2024-01-04] MEDS: Enoxaparin Sodium 30 MG/0.3 ML SYRINGE SUBCUT (07:47)
[2024-01-04 08:33] LABS: Ammonia 53 umol/L (13-55)
[2024-01-04 08:57] LABS: Anion Gap 13 (12-20); Blood Urea Nitrogen 35 mg/dL (9-16); Calcium 8.7 mg/dL (8.4-10.2); Carbon Dioxide 19 mmol/L (22-29); Chloride 116 mmol/L (96-108); Creatinine Clr Calc Pharmacy 20.2; Estimated Glomerular Filt Rate 28; Glucose Random 87 mg/dL (60-115); Sodium 144 mmol/L (135-145)
[2024-01-04 09:54] LABS: Glucose, Whole Blood 100 mg/dL (60-115)
[2024-01-04] MEDS: Zinc Oxide 20% Ointment 28.35 GM TUBE 1 APPL TOPICAL (10:10)
[2024-01-04 10:43] VITALS: BMI 25.8
--- NOTE | 2024-01-04 10:50 | MHC.CLN ---
NUTRITION CURRENTLY NPO (SINCE 01/01). SKIN WITH DTI TO SACRUM. ADVANCE DIET ABLE. CONSIDER HIGH PROTEIN SUPPLEMENT NEEDED. FOLLOW FOR DIET ADVANCEMENT, NUTRITIONAL NEEDS, SKIN INTEGRITY. SEE CLINICAL NUTRITION ASSESSMENT 01/04/24.
--- NOTE | 2024-01-04 11:31 | MHC.CM.PN ---
PT STILL CONFUSED SPOKE WITH EVAN CHENG [phone] WHO EXPLAINS THAT PT LIVES WITH HER IS ACTIVE WITH [facility] FOR PT AND OT SHE AND HER SISTER GO OVER DAILY TO HELP OUT IT IS UNCERTAIN WHAT PTS DC NEEDS WILL BE DETERMINED BY PTS HOSPITIAL COURSE
--- NOTE | 2024-01-04 14:55 | HO.PM.IMPN ---
Subjective Subjective Date of Service: 01/04/24 Interval History: Seen in follow up for encephalopathy Interval history: More alert, states her name, otherwise disoriented. Localizing pain with palpation of abdomen. Creat trending down Review of Systems Review of Systems: Yes Unobtainable due to mental status Physical Exam Vital Signs: Vital Signs: Last Vital Signs Temp 98.2 F 01/04/24 06:57 Pulse 72 01/04/24 06:57 Resp 18 01/04/24 06:57 BP 120/58 L 01/04/24 06:57 Pulse Ox 97 01/04/24 06:57 O2 Del Method Room Air 01/04/24 06:57 BMI result Body Mass Index 25.8 Constitutional - Somnolent but arousable to voice, ill appearing, No apparent distress Eyes - PERRLA, EOMI Cardiovascular - S1S2, RRR, No edema Respiratory - Normal lung expansion, Normal respiratory effort, No respiratory distress, CTA bilaterally Gastrointestinal - NT / ND; +BS; No rebound or guarding Extremities - no calf tenderness bilaterally, no swelling Skin - Warm/Dry. Stage 2 decubitus ulcer sacrum without purulent drainage Neurological - Arousable to voice, oriented to self only, otherwise nonverbal Psychological - Appropriate affect Objective Data Active Medications Acetaminophen (Acetaminophen 325 Mg Tablet) 650 mg PO Q6H PRN PRN Reason: Pain, Mild (Pain Scale 1-3), fever or headache Amiodarone HCl (Amiodarone Hcl 200 Mg Tablet) 200 mg PO DAILY [facility] Last Admin: 01/04/24 07:21 Dose: Not Given Documented By: WALTER Non-Admin Reason: NPO Aspirin (Aspirin Enteric Coated 81 Mg Tablet.) 81 mg PO DAILY [facility] Last Admin: 01/04/24 07:21 Dose: Not Given Documented By: WALTER Non-Admin Reason: NPO Atorvastatin Calcium (Atorvastatin Calcium 20 Mg Tablet) 100 mg PO BEDTIME [facility] Last Admin: 01/03/24 20:45 Dose: Not Given Documented By: TICO Non-Admin Reason: NPO Calcitonin [place] (Calcitonin,[place],Synth Nasal 3.7 Ml Bottle) 1 spray NOSTRIL-B DAILY [facility] Last Admin: 01/04/24 07:21 Dose: Not Given Documented By: WALTER Non-Admin Reason: Med Not Available Calcium Carbonate (Calcium Carbonate 750 Mg Tab.Chew) 750 mg PO Q4H PRN PRN Reason: Heartburn Enoxaparin Sodium (Enoxaparin Sodium 30 Mg/0.3 Ml Syringe) 30 mg SUBCUT Q24H [facility] Last Admin: 01/04/24 07:47 Dose: 30 mg Documented By: WALTER Furosemide (Furosemide 40 Mg Tablet) 40 mg PO DAILY RUPESH; Protocol Glucose (Glucose Gel 15 Gm Gel..Gram.) 15 gm PO Q15M PRN; Protocol PRN Reason: per Hypoglycemia Standing Ord. Dextrose (D10) 250 mls @ 750 mls/hr IV Q15M PRN; Protocol PRN Reason: per Hypoglycemia Standing Ord. Dextrose/Lactated Ringer's (D5lr) 1,000 mls @ 75 mls/hr IVCONT .[id number] [facility] Last Admin: 01/04/24 07:47 Dose: 100 mls/hr Documented By: WALTER Insulin Glargine (Insulin Glargine,Hum.Rec.Anlog 100 Unit/Ml 10 Ml Vial) 10 unit SUBCUT BEDTIME RUPESH Lactulose (Lactulose 320 Gm/480 Ml Solution) 200 gm AK Q6H [facility] Last Admin: 01/04/24 11:29 Dose: 200 gm Documented By: WALTER Lidocaine (Lidocaine 4 % Patch Adh..Patch) 1 patch TRANSDERMA DAILY PRN PRN Reason: pain Magnesium Hydroxide (Milk Of Magnesia 30 Ml Oral.Susp) 30 ml PO DAILY PRN PRN Reason: Constipation Melatonin (Melatonin 3 Mg Tablet) 6 mg PO BEDTIME PRN PRN Reason: Insomnia Ondansetron HCl (Ondansetron Hcl 4 Mg/2 Ml Vial) 4 mg IVPUSH Q8H PRN PRN Reason: Nausea and Vomiting Sodium Chloride (0.9 % Sodium Chloride Flush 3 Ml Syringe) 3 ml IVFLUSH QSHIFT [facility] Last Admin: 01/04/24 07:21 Dose: Not Given Documented By: WALTER Non-Admin Reason: IV Running Zinc Oxide (Zinc Oxide 20% Ointment 28.35 Gm Tube) 1 appl TOPICAL DAILY RUPESH; Protocol Last Admin: 01/04/24 10:10 Dose: 1 appl Documented By: WALTER Labs 01/03/24 04:47 01/04/24 08:13 Labs: Laboratory Results - last 24 hr 01/03/24 01/03/24 01/04/24 16:00 21:41 03:48 Anion Gap Estim Creat Clear Calc Estimated GFR POC Glucose 103 120 H Random Glucose Calcium Ammonia U Random Total Protein < 7 Ur Random Sodium 37.0 Urine Creatinine 116.19 01/04/24 01/04/24 01/04/24 04:27 06:57 08:13 Anion Gap 13 Estim Creat Clear Calc 20.2 Estimated GFR 28 POC Glucose 83 78 Random Glucose 87 Calcium 8.7 Ammonia 53 U Random Total Protein Ur Random Sodium Urine Creatinine 01/04/24 09:50 Anion Gap Estim Creat Clear Calc Estimated GFR POC Glucose 100 Random Glucose Calcium Ammonia U Random Total Protein Ur Random Sodium Urine Creatinine Microbiology Microbiology Results: Microbiology 01/02/24 17:42 Blood Culture - Preliminary Blood - Venous No growth after 24 hours. 01/02/24 17:33 Blood Culture - Preliminary Blood - Venous No growth after 24 hours. Assessment and Plan (1) Acute encephalopathy: Status: Acute Plan 88-year-old female with pertinent history of paroxysmal atrial fibrillation not on anticoagulation, congestive heart failure, unspecified EF, chronic kidney disease, COPD not on home oxygen, coronary artery disease who was admitted last night due to acute encephalopathy #Acute toxic metabolic encephalopathy- slow improvement. More alert, tells me her name, but still sleepy and nonverbal otherwise -no evidence of infection on admission, afebrile, mildly hypertensive but VS overall stable. -no hypercapnia, uremia. Vitamin B12 slightly elevated. TSH WNL -Urine tox screen unremarkable. salicylates and acetaminophen levels undeteactblae -ammonia level elevated at 81. No known history of chronic liver disease/cirrhosis. Change to PO lactulose. No acute.chronic liver pathology on imaging. Ammonia wnl this am with ongoing encephalopathy -hold gabapenin -neurology consult/EEG added given ongoing encephalopathy and elevated ammonia levels without clear etiology -Seen by WAISTLINE JOINER- puree diet/thin liquids. Slow IVF but will continue until po intake increases, monitor intake #Acute kidney injury on CKD -Creat 2.23 -->2.08-->1.7 this morning (baseline around 1.3) -Slow IVF to 75ml/hr. 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 Holding PO diuretics due to BLAKE #COPD -No exacerbation during admission #Chronic anemia- now microcytic -iron studies wnl -no evidence of bleeding, above transfusion threshold #Stage 2 decubitus ulcer sacrum- present on admission -wound care consult. Offloading/turn and position DVT prophylaxis: Lovenox Full code. Requires ongoing inpt hospital stay for close monitoring of mentation, monitoring of kidney function (as above), and expert consultation Quality Stroke Does the patient have a stroke diagnosis?: No VTE Prior VTE?: No VTE Risk Level:: Medical - moderate - high VTE Device Contraindication: Treatment Not Indicated VTE Drug Contraindication: N/A - Med Ordered
[2024-01-04] MEDS: Lactulose 20 GM/30 ML SOLUTION PO ×2 (15:37→19:58)
[2024-01-04 15:47] VITALS: BP 121/59; PULSE 60; RESP 18; TEMP 36.2; O2SAT 98
--- NOTE | 2024-01-04 16:55 | MHC.SL.SWA ---
Risk of Aspiration Due to: Cognition Dysphasia Diet Status: UPGRADE from NPO Liquid Consistency and Strategies for Safe Swallow: Liquid Intake Recommendation: Thin Liquid Intake Strategies: Small Sips Solid Food Consistency: Dietary Recommendations: Pureed (NDD1) Oral Medication Intake: Crushed with Puree Please contact the pharmacy regarding appropriate crushable or liquid drug formulations that are available whenever modified delivery is recommended. Compensatory Strategies and Precautions to be Taken for Safe Swallow: Sitting Upright (90 deg) Small Bites and Sips Alternate Liquids/Solids Rate of Ingestion Change Oral Check Supervision While Eating and Drinking for Safe Swallow: Total Assistance (1:1) Swallowing Recommended Treatments: Compens. Strategy Educat. Recommendation for Speech: Inpatient Speech Therapy Comment: Recommend UPGRADE to PUREE solids and THIN liquids. Recommend pills CRUSHED in PUREE when possible. Pt demonstrates need for 1-1 assist at this time and cues for SMALL SIPS. SCRIP CLERK to continue to follow. Md Senior Research Scientist Clinican/Clinical Fellow: No Supervisory Statement: I have reviewed and agree with the student/clinical fellow's documentation: N/A Speech Language Pathologist: Kim March M.A., CCC-SCRIP CLERK
[2024-01-04 16:57] LABS: Glucose, Whole Blood 154 mg/dL (60-115)
[2024-01-04] MEDS: Insulin Lispro 100 UNIT/ML 3 ML VIAL SUBCUT (17:42)
[2024-01-04] MEDS: Dextrose 5 % and Lactated Ring 1,000 ML 75 ML IVCONT (18:26)
--- NOTE | 2024-01-04 19:25 | PC.NURSE ---
[id number]; Assumed care of patient. Patient alert to self, MECHOOPDA. Turn and reposition in bed X2 assist. Moans in pain- asked patient if they wanted pain meds but patient declined offer. Foams to bilateral hips, coccyx and elbow present, skin checked underneath
[2024-01-04 20:00] VITALS: BP 109/53; PULSE 60; RESP 16; TEMP 36.3; O2SAT 97
[2024-01-04] MEDS: Atorvastatin Calcium 20 MG TABLET 100 MG PO (20:07)
[2024-01-04 20:39] LABS: Glucose, Whole Blood 115 mg/dL (60-115)
--- NOTE | 2024-01-05 | EEG_ITS ---
This is a 16-channel EEG with an EKG lead. The patient is reported awake, confused, and drowsy during the tracing. Background EEG rhythm is medium amplitude, mixed theta to delta range with some asymmetric left hemispheric, sharply contoured theta range discharges. No definite sharp waves or spikes are noted. Cardiac lead does not reveal any significant abnormality. Photic stimulation was not performed. IMPRESSION: Mildly abnormal EEG suggestive of left hemispheric irritability. If not treated for partial seizure disorder before, consider treating it. MD CLEO Hylton/KURT / [phone]
[2024-01-05] MEDS: Acetaminophen 325 MG TABLET 650 MG PO (03:21)
--- NOTE | 2024-01-05 03:38 | PC.NURSE ---
pt noted to have edema to left arm compared to right, provider made aware, fluids being held until further notice.
[2024-01-05 04:00] VITALS: BP 128/58; PULSE 61; RESP 15; TEMP 36.3; O2SAT 98
[2024-01-05 06:46] LABS: Alanine Aminotransferase 40 U/L (0-31); Albumin Level 2.2 g/dL (3.5-5.0); Alkaline Phosphatase 103 U/L (39-117); Anion Gap 12 (12-20); Aspartate Amino Transferase 86 U/L (5-31); Bilirubin Direct 0.5 mg/dL (0.0-0.5); Blood Urea Nitrogen 29 mg/dL (9-16); Calcium 8.7 mg/dL (8.4-10.2); Carbon Dioxide 22 mmol/L (22-29); Chloride 116 mmol/L (96-108); Creatinine Clr Calc Pharmacy 21.6; Estimated Glomerular Filt Rate 30; Glucose Random 120 mg/dL (60-115); Potassium 3.5 mmol/L (3.3-5.1); Sodium 146 mmol/L (135-145); Total Protein 5.5 g/dL (6.5-8.0)
[2024-01-05 07:03] VITALS: BP 143/62; PULSE 60; RESP 16; TEMP 36.5; O2SAT 97
[2024-01-05 07:26] LABS: Glucose, Whole Blood 104 mg/dL (60-115)
--- NOTE | 2024-01-05 08:27 | P.PNIM_ITS ---
Subjective Subjective Date of Service: 01/05/24 Interval History: Seen in follow up for encephalopathy Interval history:She remains confused, only oriented to self, renal failure is better Physical Exam 2 Vital Signs: Vital Signs: Last Vital Signs Temp 97.7 F 01/05/24 07:03 Pulse 60 01/05/24 07:03 Resp 16 01/05/24 07:03 BP 143/62 H 01/05/24 07:03 Pulse Ox 97 01/05/24 07:03 O2 Del Method Room Air 01/05/24 07:03 BMI result Body Mass Index 25.8 Constitutional - Somnolent but arousable to voice, ill appearing, No apparent distress Eyes - PERRLA, EOMI Cardiovascular - S1S2, RRR, No edema Respiratory - Normal lung expansion, Normal respiratory effort, No respiratory distress, CTA bilaterally Gastrointestinal - NT / ND; +BS; No rebound or guarding Extremities - no calf tenderness bilaterally, no swelling Skin - Warm/Dry. Stage 2 decubitus ulcer sacrum without purulent drainage --see picture from prior note Neurological - Arousable to voice, oriented to self only, otherwise nonverbal Psychological - Appropriate affect Objective Data Active Medications Acetaminophen (Acetaminophen 325 Mg Tablet) 650 mg PO Q6H PRN PRN Reason: Pain, Mild (Pain Scale 1-3), fever or headache Last Admin: 01/05/24 03:21 Dose: 650 mg Documented By: MARSHALL Amiodarone HCl (Amiodarone Hcl 200 Mg Tablet) 200 mg PO DAILY [facility] Last Admin: 01/04/24 07:21 Dose: Not Given Documented By: WALTER Non-Admin Reason: NPO Aspirin (Aspirin Enteric Coated 81 Mg Tablet.Dr) 81 mg PO DAILY [facility] Last Admin: 01/04/24 07:21 Dose: Not Given Documented By: WALTER Non-Admin Reason: NPO Atorvastatin Calcium (Atorvastatin Calcium 20 Mg Tablet) 100 mg PO BEDTIME [facility] Last Admin: 01/04/24 20:07 Dose: 100 mg Documented By: MARSHALL Calcitonin [place] (Calcitonin,[place],Synth Nasal 3.7 Ml Bottle) 1 spray NOSTRIL-B DAILY [facility] Last Admin: 01/04/24 07:21 Dose: Not Given Documented By: WALTER Non-Admin Reason: Med Not Available Calcium Carbonate (Calcium Carbonate 750 Mg Tab.Chew) 750 mg PO Q4H PRN PRN Reason: Heartburn Enoxaparin Sodium (Enoxaparin Sodium 30 Mg/0.3 Ml Syringe) 30 mg SUBCUT Q24H [facility] Last Admin: 01/04/24 07:47 Dose: 30 mg Documented By: WALTER Glucose (Glucose Gel 15 Gm Gel..Gram.) 15 gm PO Q15M PRN; Protocol PRN Reason: per Hypoglycemia Standing Ord. Dextrose (D10) 250 mls @ 750 mls/hr IV Q15M PRN; Protocol PRN Reason: per Hypoglycemia Standing Ord. Dextrose/Lactated Ringer's (D5lr) 1,000 mls @ 75 mls/hr IVCONT .[id number] [facility] Last Infusion: 01/05/24 03:40 Dose: 0 mls/hr Documented By: MARSHALL Insulin Human Lispro (Insulin Lispro 100 Unit/Ml 3 Ml Vial) 0 unit SUBCUT QIDACHS [facility]; Protocol Last Admin: 01/04/24 20:44 Dose: Not Given Documented By: MARSHALL Non-Admin Reason: No Insulin Coverage Lactulose (Lactulose 20 Gm/30 Ml Solution) 20 gm PO TID [facility] Last Admin: 01/04/24 19:58 Dose: 20 gm Documented By: MARSHALL Lidocaine (Lidocaine 4 % Patch Adh..Patch) 1 patch TRANSDERMA DAILY PRN PRN Reason: pain Magnesium Hydroxide (Milk Of Magnesia 30 Ml Oral.Susp) 30 ml PO DAILY PRN PRN Reason: Constipation Melatonin (Melatonin 3 Mg Tablet) 6 mg PO BEDTIME PRN PRN Reason: Insomnia Ondansetron HCl (Ondansetron Hcl 4 Mg/2 Ml Vial) 4 mg IVPUSH Q8H PRN PRN Reason: Nausea and Vomiting Sodium Chloride (0.9 % Sodium Chloride Flush 3 Ml Syringe) 3 ml IVFLUSH QSHIFT [facility] Last Admin: 01/04/24 21:53 Dose: Not Given Documented By: MARSHALL Non-Admin Reason: IV Running Zinc Oxide (Zinc Oxide 20% Ointment 28.35 Gm Tube) 1 appl TOPICAL DAILY [facility]; Protocol Last Admin: 01/04/24 10:10 Dose: 1 appl Documented By: WALTER Labs 01/03/24 04:47 01/05/24 05:50 Labs: Laboratory Results - last 24 hr 01/04/24 01/04/24 01/04/24 08:13 09:50 16:54 Anion Gap 13 Estim Creat Clear Calc 20.2 Estimated GFR 28 POC Glucose 100 154 H Random Glucose 87 Calcium 8.7 Total Bilirubin Direct Bilirubin AST ALT Alkaline Phosphatase Ammonia 53 Total Protein Albumin 01/04/24 01/05/24 01/05/24 20:35 05:50 07:05 Anion Gap 12 Estim Creat Clear Calc 21.6 Estimated GFR 30 POC Glucose 115 104 Random Glucose 120 H Calcium 8.7 Total Bilirubin 1.0 Direct Bilirubin 0.5 AST 86 H ALT 40 H Alkaline Phosphatase 103 Ammonia Total Protein 5.5 L Albumin 2.2 L Microbiology Microbiology Results: Microbiology 01/02/24 17:42 Blood Culture - Preliminary Blood - Venous No growth after 48 hours. 01/02/24 17:33 Blood Culture - Preliminary Blood - Venous No growth after 48 hours. Assessment and Plan (1) Metabolic encephalopathy: Status: Acute (2) Acute metabolic encephalopathy: Status: Acute Plan 88/F w/ PAF, not on anticoagulation, CHF NOS, CKD, COPD , CAD admitted for encephalopathy #Acute toxic metabolic encephalopathy- likely combination of hyperammonemia, renal failure and others. -no evidence of infection -continue lactulose -hold gabapentin -EEG, neuro consult if not improving -LP if has fever Dysphagia -Seen by SOLAR FIELD SERVICE TECHNICIAN- puree diet/thin liquids. Slow IVF but will continue until po intake increases, monitor intake #CKD3b, BLAKE -Creat 2.23 -->2.08-->1.7-->1.6 -continue IvF -avoid nephrotoxins, hold lasix/spironolactone -monitor I&O -Follow renal function/lytes -neprho following #elevated LFTs --as cause of high ammonia, US unremarkable #Acute abd pain--resolved -pt localizing pain to abd without guarding or rebound -ct abd/pelvis without acute abnormality #Insulin dependent type 2 diabetes- without hyperglycemia -Continue holding basal insulin until po intake increases -poc glucose, advance to diabetic diet once more awake -admelog on ss #PAF -not on ac (will discuss with daughter reason for no ac) or rate control #Congestive heart failure, unspecified EF/coronary artery disease -clinically euvolemic. Holdin diuretics due to BLAKE #COPD -No exacerbation during admission #Chronic anemia- now microcytic -iron studies wnl -no evidence of bleeding, above transfusion threshold #Stage 2 decubitus ulcer sacrum- present on admission -wound care consult. Offloading/turn and position DVT prophylaxis: Lovenox Full code. Requires ongoing inpt hospital stay for close monitoring of mentation, monitoring of kidney function (as above), and expert consultation Quality Stroke Does the patient have a stroke diagnosis?: No VTE Prior VTE?: No VTE Risk Level:: Medical - moderate - high VTE Device Contraindication: Treatment Not Indicated VTE Drug Contraindication: N/A - Med Ordered
[2024-01-05] MEDS: 0.9 % Sodium Chloride Flush 3 ML SYRINGE IVFLUSH ×3 (09:52→22:03)
--- NOTE | 2024-01-05 09:52 | MHC.SL.SWA ---
Speech Pathologist Impression: Risk of Aspiration Due to: Dysphasia Diet Status: Liquid Consistency and Strategies for Safe Swallow: Liquid Intake Recommendation: Thin Liquid Intake Strategies: Small Sips Solid Food Consistency: Dietary Recommendations: Pureed (NDD1) Additional Modifications to Solid Foods: Oral Medication Intake: Crushed with Puree Please contact the pharmacy regarding appropriate crushable or liquid drug formulations that are available whenever modified delivery is recommended. Compensatory Strategies and Precautions to be Taken for Safe Swallow: Sitting Upright (90 deg) Small Bites and Sips Alternate Liquids/Solids Rate of Ingestion Change Oral Check Supervision While Eating and Drinking for Safe Swallow: Total Assistance (1:1) Foods to Avoid: Swallowing Recommended Treatments: Compens. Strategy Educat. Recommendation for Speech: Inpatient Speech Therapy Comment: Patient seen at breakfast this morning. Patient had reportedly refused all po from RESPIRATORY THERAPY MANAGER. At onset of visit patient was sleeping, but woke easily, and again initially refused all p.o. With encouragement, patient agreed to have some water as mouth appeared very dry. Patient took sip of water from straw and immediately grimaced, saying that tastes awful. MIXING MACHINE FEEDER then offered sip of ensure that was present with patient complaining more about taste, grimacing and shaking head. Patient then accepted more sips of water, during which she was noted to belch frequently, and complain about her stomach. Patient was offered food several times, but refused. Patient accepted some orange juice, again by straw, taking a few sips, but then again refusing. Patient was given oral care due to evident dry lips with patient again complaining and grimacing at application. Patient is difficult to feed at this time due to refusal, apparent general distaste for all flavors/textures. Patient will need patient but persistant offering of food and liquid, as currently she is behaviorally refusing all. Frequency/Duration: Date Range for Service Req: Timeline to reassess: Real Estate Investor Clinican/Clinical Fellow: No Supervisory Statement: I have reviewed and agree with the student/clinical fellow's documentation: N/A Speech Language Pathologist: Chasity Mon M.A., [facility]-MIXING MACHINE FEEDER
[2024-01-05] MEDS: Enoxaparin Sodium 30 MG/0.3 ML SYRINGE SUBCUT (09:54)
[2024-01-05] MEDS: Amiodarone HCL 200 MG TABLET PO (09:58)
[2024-01-05] MEDS: Lactulose 20 GM/30 ML SOLUTION PO (09:58)
[2024-01-05] MEDS: Zinc Oxide 20% Ointment 28.35 GM TUBE 1 APPL TOPICAL (09:58)
[2024-01-05] MEDS: Aspirin Enteric Coated 81 MG TABLET.DR PO (09:58)
--- NOTE | 2024-01-05 10:33 | P.PNNP_ITS ---
Subjective Subjective Date of Service: 01/05/24 Interval history: Seen in follow up for encephalopathy Interval history:She remains confused, only oriented to self, renal failure is better Physical Exam 2 Vital Signs: Vital Signs: Last Vital Signs Temp 97.7 F 01/05/24 07:03 Pulse 60 01/05/24 07:03 Resp 16 01/05/24 07:03 BP 143/62 H 01/05/24 07:03 Pulse Ox 97 01/05/24 07:03 O2 Del Method Room Air 01/05/24 07:03 BMI result Body Mass Index 25.8 Const: General: ill appearing Neck: Neck: Yes supple Resp: Auscultation: clear to auscultation bilaterally Cardio: Palpation: no palpable S3 Heart sounds: no rubs GI: Palpation (GI): Soft to palpation Auscultation: normal bowel sounds Neuro: Motor exam (neuro): no asterixis Objective Data Labs 01/03/24 04:47 01/05/24 05:50 Labs: Laboratory Results - last 24 hr 01/04/24 01/04/24 01/05/24 16:54 20:35 05:50 Sodium 146 H Potassium 3.5 Chloride 116 H Carbon Dioxide 22 Anion Gap 12 BUN 29 H Creatinine 1.61 H Estim Creat Clear Calc 21.6 Estimated GFR 30 POC Glucose 154 H 115 Random Glucose 120 H Calcium 8.7 Total Bilirubin 1.0 Direct Bilirubin 0.5 AST 86 H ALT 40 H Alkaline Phosphatase 103 Total Protein 5.5 L Albumin 2.2 L 01/05/24 07:05 Sodium Potassium Chloride Carbon Dioxide Anion Gap BUN Creatinine Estim Creat Clear Calc Estimated GFR POC Glucose 104 Random Glucose Calcium Total Bilirubin Direct Bilirubin AST ALT Alkaline Phosphatase Total Protein Albumin Microbiology Microbiology Results: Microbiology 01/02/24 17:42 Blood - Venous Blood Culture - Preliminary No growth after 48 hours. 01/02/24 17:33 Blood - Venous Blood Culture - Preliminary No growth after 48 hours. Procedures Date of Service Date of Service: 01/05/24 Assessment & Plan Assessment and plan (1) Acute kidney injury: Status: Acute Plan kale due t o hypoperfusion ATN/AGN unlikely based on bland urine findings No obstruction based on sonogram Suggest HOLD LASIX and ALDACTONE Keep I > O NO indication for dialysis today Time Spent With Patient Time: Total time managing care of this patient today ____ minutes. Progress Note: Quality Stroke Does the patient have a stroke diagnosis?: No
[2024-01-05 11:19] LABS: Glucose, Whole Blood 118 mg/dL (60-115)
--- NOTE | 2024-01-05 12:27 | PM.NEUROCN ---
History of Present Illness Data of Consult Service Date: 01/05/24 Primary Care Provider: Karley Cohen MD HPI Reason for consult: Encephalopathy 88 years old woman who came to hospital with change in mental status and confusion. Initially she was not able to provide any meaningful history. She was found to be with acute renal liver failure with high ammonia level. Now ammonia level has normalized from 80s to 50s. She was still noted to be somewhat confused and this consultation was requested. There was no sign of any seizure or focal weakness. He was not febrile. Review of Systems Review of Systems: No recent cold or flu-like illness [facility] Past Medical History Medical History Paroxysmal atrial fibrillation COVID-19 vaccine series completed Diabetes GERD (gastroesophageal reflux disease) Chronic renal insufficiency COPD (chronic obstructive pulmonary disease) Asthma On anticoagulant therapy Elevated cholesterol Aortic valvular disease Pacemaker CHF (congestive heart failure) Myocardial infarction CAD (coronary artery disease) HTN (hypertension) Surgical History Surgical History Hx of tonsillectomy Hx of cholecystectomy History of esophagogastroduodenoscopy (EGD) Hx of CABG Hx of heart artery stent Hx of aortic valve replacement History of hip surgery H/O colonoscopy Social History Social History Household Members: Spouse Housing: Other Are you a primary health care administrator to a significant other at home: No Do you presently have visiting nurse or other home services: No Patient Tobacco Use Status: Never used Tobacco service: No Meds Allergies Allergy/AdvReac Type Severity Reaction Status Date / Time No Known Allergies Allergy Verified 01/02/24 17:00 Active Medications: Current Medications Acetaminophen (Acetaminophen 325 Mg Tablet) 650 mg PO Q6H PRN PRN Reason: Pain, Mild (Pain Scale 1-3), fever or headache Last Admin: 01/05/24 03:21 Dose: 650 mg Amiodarone HCl (Amiodarone Hcl 200 Mg Tablet) 200 mg PO DAILY [facility] Last Admin: 01/05/24 09:58 Dose: 200 mg Aspirin (Aspirin Enteric Coated 81 Mg Tablet.) 81 mg PO DAILY [facility] Last Admin: 01/05/24 09:58 Dose: 81 mg Atorvastatin Calcium (Atorvastatin Calcium 20 Mg Tablet) 100 mg PO BEDTIME [facility] Last Admin: 01/04/24 20:07 Dose: 100 mg Calcitonin [place] (Calcitonin,[place],Synth Nasal 3.7 Ml Bottle) 1 spray NOSTRIL-B DAILY [facility] Last Admin: 01/05/24 09:59 Dose: Not Given Calcium Carbonate (Calcium Carbonate 750 Mg Tab.Chew) 750 mg PO Q4H PRN PRN Reason: Heartburn Enoxaparin Sodium (Enoxaparin Sodium 30 Mg/0.3 Ml Syringe) 30 mg SUBCUT Q24H [facility] Last Admin: 01/05/24 09:54 Dose: 30 mg Glucose (Glucose Gel 15 Gm Gel..Gram.) 15 gm PO Q15M PRN; Protocol PRN Reason: per Hypoglycemia Standing Ord. Dextrose (D10) 250 mls @ 750 mls/hr IV Q15M PRN; Protocol PRN Reason: per Hypoglycemia Standing Ord. Dextrose/Lactated Ringer's (D5lr) 1,000 mls @ 75 mls/hr IVCONT .[id number] [facility] Last Infusion: 01/05/24 03:40 Dose: 0 mls/hr Insulin Human Lispro (Insulin Lispro 100 Unit/Ml 3 Ml Vial) 0 unit SUBCUT QIDACHS [facility]; Protocol Last Admin: 01/05/24 11:40 Dose: Not Given Lactulose (Lactulose 20 Gm/30 Ml Solution) 20 gm PO TID [facility] Last Admin: 01/05/24 09:58 Dose: 20 gm Lidocaine (Lidocaine 4 % Patch Adh..Patch) 1 patch TRANSDERMA DAILY PRN PRN Reason: pain Magnesium Hydroxide (Milk Of Magnesia 30 Ml Oral.Susp) 30 ml PO DAILY PRN PRN Reason: Constipation Melatonin (Melatonin 3 Mg Tablet) 6 mg PO BEDTIME PRN PRN Reason: Insomnia Ondansetron HCl (Ondansetron Hcl 4 Mg/2 Ml Vial) 4 mg IVPUSH Q8H PRN PRN Reason: Nausea and Vomiting Sodium Chloride (0.9 % Sodium Chloride Flush 3 Ml Syringe) 3 ml IVFLUSH QSHIFT [facility] Last Admin: 01/05/24 09:52 Dose: 3 ml Zinc Oxide (Zinc Oxide 20% Ointment 28.35 Gm Tube) 1 appl TOPICAL DAILY [facility]; Protocol Last Admin: 01/05/24 09:58 Dose: 1 appl Home Medications ?Medication ?Instructions ?Recorded ?Confirmed ?Last Taken ?Type albuterol sulfate 90 mcg/actuation 2 puff PO Q6H PRN wheezing 09/15/21 01/03/24 Unknown History aerosol inhaler amiodarone 200 mg tablet 200 mg PO DAILY 09/15/21 01/03/24 01/01/24 History atorvastatin 10 mg tablet 10 tab PO BEDTIME 09/15/21 01/03/24 01/01/24 History furosemide 40 mg tablet 40 mg PO DAILY 09/15/21 01/03/24 01/01/24 History insulin glargine 100 unit/mL 15 unit subcut BEDTIME 09/15/21 01/03/24 01/01/24 History subcutaneous solution (Lantus U-100 Insulin) omega-3 acid ethyl esters 1 gram 2 cap PO DAILY 09/15/21 01/03/24 01/01/24 History capsule calcitonin (salmon) 200 1 spray intranasal DAILY 05/15/23 01/03/24 01/01/24 History unit/actuation nasal spray spironolactone 25 mg tablet 25 mg PO DAILY 05/16/23 01/03/24 01/01/24 History zinc oxide 20 % topical ointment 1 appl topical DAILY 05/16/23 01/03/24 01/01/24 History aspirin 81 mg tablet,delayed 81 mg PO DAILY 01/03/24 01/03/24 01/01/24 History release gabapentin 100 mg capsule 100 mg PO BID 01/03/24 01/03/24 Unknown History Physical Exam Vital Signs: Vital Signs: Last Vital Signs Temp 97.7 F 01/05/24 07:03 Pulse 60 01/05/24 07:03 Resp 16 01/05/24 07:03 BP 143/62 H 01/05/24 07:03 Pulse Ox 97 01/05/24 07:03 O2 Del Method Room Air 01/05/24 07:03 BMI result Body Mass Index 25.8 Neuro: Other: She is alert and awake looking around made eye contact and answered simple questions. She was not sure where she was and what was going on. She was able to recognize family members in the room but did not know what year this was. Face was symmetrical. Visual cramer are full. There was no focal arm or leg weakness. Plantars were flexors. There was no asterisks. Results Labs 01/03/24 04:47 01/05/24 05:50 Labs: BMP 01/05/24 05:50 Sodium 146 H Potassium 3.5 Chloride 116 H Carbon Dioxide 22 BUN 29 H Creatinine 1.61 H Calcium 8.7 Liver Function 01/05/24 Range/Units 05:50 Total Bilirubin 1.0 (0.0-1.0) mg/dL Direct Bilirubin 0.5 (0.0-0.5) mg/dL AST 86 H (5-31) U/L ALT 40 H (0-31) U/L Alkaline Phosphatase 103 (39-117) U/L Albumin 2.2 L (3.5-5.0) g/dL Head CT revealed mild diffuse cerebral atrophy. Microbiology Microbiology Results: Microbiology 01/02/24 17:42 Blood - Venous Blood Culture - Preliminary No growth after 48 hours. 01/02/24 17:33 Blood - Venous Blood Culture - Preliminary No growth after 48 hours. Assessment and Plan (1) Metabolic encephalopathy: Status: Acute 88 years old woman with metabolic toxic encephalopathy. In her age group with this type of diagnosis specially from hyperammonemia, clinical improvement could lag behind lab improvement. Otherwise there does not seem to be any other significant acute neurological syndrome. Continuation of present treatment and rehab is recommended. Procedures Date of Service Date of Service: 01/05/24
[2024-01-05 15:44] LABS: Glucose, Whole Blood 123 mg/dL (60-115)
[2024-01-05] MEDS: Dextrose 5 % and Lactated Ring 1,000 ML 75 ML IVCONT (15:55)
[2024-01-05 16:09] VITALS: BP 113/57; PULSE 60; RESP 12; TEMP 37; O2SAT 98
--- NOTE | 2024-01-05 18:56 | PC.NURSE ---
Left arm swelling,dr. Viera made aware,arm elevated on a pillow,will monitor
[2024-01-05 19:43] VITALS: BP 118/54; PULSE 60; RESP 16; TEMP 36.4; O2SAT 99
[2024-01-05 20:30] LABS: Glucose, Whole Blood 181 mg/dL (60-115)
[2024-01-05] MEDS: Atorvastatin Calcium 20 MG TABLET 100 MG PO (21:03)
[2024-01-05] MEDS: Insulin Lispro 100 UNIT/ML 3 ML VIAL SUBCUT (21:03)
--- NOTE | 2024-01-05 21:57 | PC.NURSE ---
Addendum entered by Natasha Valle RN 01/05/24 23:08: per documentation lasix have been being held, due to recent BLAKE. Original Note: This RN assumed care at 1900, pt presumed to have a new IV in [place], with D5/LR at 75ml/hr. Pts right arm now has significant edema as well. Dr. Rodriguez made aware, and this RN requested Discontinuing IVF. is not running at this time. Bilateral arms elevated on pillows.
[2024-01-06 04:00] VITALS: BP 113/50; PULSE 60; RESP 18; TEMP 36.2; O2SAT 99
--- NOTE | 2024-01-06 05:43 | PC.NURSE ---
Addendum entered by Natasha Valle RN 01/06/24 06:29: Pt pulled out R arm IV and Leaving a small skin tear, and 2 small fluid filled vesicles Original Note: pt pulled out IV in [place] U/S guided,
[2024-01-06 06:43] LABS: Alanine Aminotransferase 40 U/L (0-31); Albumin Level 2.1 g/dL (3.5-5.0); Alkaline Phosphatase 118 U/L (39-117); Anion Gap 13 (12-20); Aspartate Amino Transferase 81 U/L (5-31); Bilirubin Direct 0.4 mg/dL (0.0-0.5); Bilirubin Total 0.8 mg/dL (0.0-1.0); Blood Urea Nitrogen 23 mg/dL (9-16); Calcium 8.7 mg/dL (8.4-10.2); Carbon Dioxide 20 mmol/L (22-29); Chloride 116 mmol/L (96-108); Creatinine Clr Calc Pharmacy 25.6; Estimated Glomerular Filt Rate 37; Glucose Random 89 mg/dL (60-115); Potassium 3.9 mmol/L (3.3-5.1); Sodium 145 mmol/L (135-145); Total Protein 5.5 g/dL (6.5-8.0)
[2024-01-06 07:37] LABS: Glucose, Whole Blood 94 mg/dL (60-115)
[2024-01-06 07:43] VITALS: BP 103/49; PULSE 60; RESP 12; TEMP 37; O2SAT 98
--- NOTE | 2024-01-06 08:13 | PC.NURSE ---
bilateral arm swelling,Dr. Lewis made aware
--- NOTE | 2024-01-06 08:51 | HO.PM.IMPN ---
Subjective Subjective Date of Service: 01/06/24 Interval History: Seen in follow up for encephalopathy Interval history:persistent confusion, she has removed multiple ivs resulting in infiltion of the iv into the arms and swelling Physical Exam Vital Signs: Vital Signs: Last Vital Signs Temp 98.6 F 01/06/24 07:43 Pulse 60 01/06/24 07:43 Resp 12 01/06/24 07:43 BP 103/49 L 01/06/24 07:43 Pulse Ox 98 01/06/24 07:43 O2 Del Method Room Air 01/06/24 07:43 BMI result Body Mass Index 25.8 Constitutional - Somnolent but arousable to voice, ill appearing, No apparent distress Eyes - PERRLA, EOMI Cardiovascular - S1S2, RRR, No edema Respiratory - Normal lung expansion, Normal respiratory effort, No respiratory distress, CTA bilaterally Gastrointestinal - NT / ND; +BS; No rebound or guarding Extremities - no calf tenderness bilaterally, no swelling Skin - Warm/Dry. Stage 2 decubitus ulcer sacrum without purulent drainage --see picture from prior note Neurological - Arousable to voice, oriented to self only, otherwise nonverbal Psychological - Appropriate affect Objective Data Active Medications Acetaminophen (Acetaminophen 325 Mg Tablet) 650 mg PO Q6H PRN PRN Reason: Pain, Mild (Pain Scale 1-3), fever or headache Last Admin: 01/05/24 03:21 Dose: 650 mg Documented By: MARSHALL Amiodarone HCl (Amiodarone Hcl 200 Mg Tablet) 200 mg PO DAILY [facility] Last Admin: 01/05/24 09:58 Dose: 200 mg Documented By: AMARILIS Aspirin (Aspirin Enteric Coated 81 Mg Tablet.Dr) 81 mg PO DAILY [facility] Last Admin: 01/05/24 09:58 Dose: 81 mg Documented By: AMARILIS Atorvastatin Calcium (Atorvastatin Calcium 20 Mg Tablet) 100 mg PO BEDTIME [facility] Last Admin: 01/05/24 21:03 Dose: 100 mg Documented By: MARSHALL Calcitonin [place] (Calcitonin,[place],Synth Nasal 3.7 Ml Bottle) 1 spray NOSTRIL-B DAILY [facility] Last Admin: 01/05/24 09:59 Dose: Not Given Documented By: AMARILIS Non-Admin Reason: not available pharmacy notified Calcium Carbonate (Calcium Carbonate 750 Mg Tab.Chew) 750 mg PO Q4H PRN PRN Reason: Heartburn Enoxaparin Sodium (Enoxaparin Sodium 30 Mg/0.3 Ml Syringe) 30 mg SUBCUT Q24H [facility] Last Admin: 01/05/24 09:54 Dose: 30 mg Documented By: AMARILIS Glucose (Glucose Gel 15 Gm Gel..Gram.) 15 gm PO Q15M PRN; Protocol PRN Reason: per Hypoglycemia Standing Ord. Dextrose (D10) 250 mls @ 750 mls/hr IV Q15M PRN; Protocol PRN Reason: per Hypoglycemia Standing Ord. Insulin Human Lispro (Insulin Lispro 100 Unit/Ml 3 Ml Vial) 0 unit SUBCUT QIDACHS [facility]; Protocol Last Admin: 01/05/24 21:03 Dose: 2 unit Documented By: MARSHALL Lactulose (Lactulose 20 Gm/30 Ml Solution) 20 gm PO TID [facility] Last Admin: 01/05/24 21:24 Dose: Not Given Documented By: MARSHALL Non-Admin Reason: 3 lrg BMs during day shift Lidocaine (Lidocaine 4 % Patch Adh..Patch) 1 patch TRANSDERMA DAILY PRN PRN Reason: pain Magnesium Hydroxide (Milk Of Magnesia 30 Ml Oral.Susp) 30 ml PO DAILY PRN PRN Reason: Constipation Melatonin (Melatonin 3 Mg Tablet) 6 mg PO BEDTIME PRN PRN Reason: Insomnia Ondansetron HCl (Ondansetron Hcl 4 Mg/2 Ml Vial) 4 mg IVPUSH Q8H PRN PRN Reason: Nausea and Vomiting Sodium Chloride (0.9 % Sodium Chloride Flush 3 Ml Syringe) 3 ml IVFLUSH QSHIFT [facility] Last Admin: 01/05/24 22:03 Dose: 3 ml Documented By: MARSHALL Zinc Oxide (Zinc Oxide 20% Ointment 28.35 Gm Tube) 1 appl TOPICAL DAILY [facility]; Protocol Last Admin: 01/05/24 09:58 Dose: 1 appl Documented By: AMARILIS Labs 01/03/24 04:47 01/06/24 05:29 Labs: Laboratory Results - last 24 hr 01/05/24 01/05/24 01/05/24 11:10 15:32 20:26 Hold Purple Top Anion Gap Estim Creat Clear Calc Estimated GFR POC Glucose 118 H 123 H 181 H Random Glucose Calcium Total Bilirubin Direct Bilirubin AST ALT Alkaline Phosphatase Total Protein Albumin 01/06/24 01/06/24 05:29 07:15 Hold Purple Top SEE NOTE Anion Gap 13 Estim Creat Clear Calc 25.6 Estimated GFR 37 POC Glucose 94 Random Glucose 89 Calcium 8.7 Total Bilirubin 0.8 Direct Bilirubin 0.4 AST 81 H ALT 40 H Alkaline Phosphatase 118 H Total Protein 5.5 L Albumin 2.1 L Assessment and Plan (1) Metabolic encephalopathy: Status: Acute (2) Acute metabolic encephalopathy: Status: Acute Plan 88/F w/ PAF, not on anticoagulation, CHF NOS, CKD, COPD , CAD admitted for encephalopathy #Acute toxic metabolic encephalopathy- likely combination of hyperammonemia, renal failure and others. -no evidence of infection -continue lactulose -hold gabapentin -EEG done result pending -seen by Neuro--see note, conservaive management -LP if has fever Dysphagia -Seen by LOCOMOTIVE ENGINEER DIESEL- puree diet/thin liquids. #CKD3b, BLAKE -Creat 2.23 -->2.08-->1.7-->1.6-->1.3 -stoping ivf as continue to remove iv, encourage oral water -avoid nephrotoxins, hold lasix/spironolactone -monitor I&O -Follow renal function/lytes -neprho following #elevated LFTs --as cause of high ammonia, US unremarkable #Acute abd pain--resolved -pt localizing pain to abd without guarding or rebound -ct abd/pelvis without acute abnormality #Insulin dependent type 2 diabetes- without hyperglycemia -Continue holding basal insulin until po intake increases -poc glucose, advance to diabetic diet once more awake -admelog on ss #PAF -not on ac (will discuss with daughter reason for no ac) or rate control #Congestive heart failure, unspecified EF/coronary artery disease -clinically euvolemic. Holdin diuretics due to BLAKE #COPD -No exacerbation during admission #Chronic anemia- now microcytic -iron studies wnl -no evidence of bleeding, above transfusion threshold #Stage 2 decubitus ulcer sacrum- present on admission -wound care consult. Offloading/turn and position DVT prophylaxis: Lovenox Full code. Requires ongoing inpt hospital stay for close monitoring of mentation, monitoring of kidney function (as above), and expert consultation Quality Stroke Does the patient have a stroke diagnosis?: No VTE Prior VTE?: No VTE Risk Level:: Medical - moderate - high VTE Device Contraindication: Treatment Not Indicated VTE Drug Contraindication: N/A - Med Ordered
[2024-01-06 08:58] LABS: MANUAL DIFF FLAG NO
[2024-01-06 09:05] LABS: Basophils Absolute Auto 0.1 X10*3/uL (0.0-0.2); Basophils Percent Auto 0.7 % (0-2); Eosinophils Absolute Auto 0.8 X10*3/uL (0.0-0.4); Eosinophils Percent Auto 8.2 % (0-4); Hemoglobin 8.8 g/dl (12.0-16.0); Imm Gran Abs Auto 0.02 X10*3/uL (0.00-0.03); Imm Gran Pct Auto 0.2 % (0.0-0.4); Lymphocytes Absolute Auto 1.9 X10*3/uL (1.2-4.9); Lymphocytes Percent Auto 18.6 % (20-40); Mean Corpuscular HGB Conc 31.4 g/dl (31.0-35.0); Mean Corpuscular Hemoglobin 25.4 pg (27.0-33.0); Mean Corpuscular Volume 80.9 fL (80.0-98.0); Monocytes Percent Auto 10.1 % (2-11); Neutrophils Absolute Auto 6.3 x10*3/uL (2.0-8.3); Neutrophils Percent Auto 62.2 % (45-73); Platelet Count 165 X10*3/uL (160-400); Red Blood Count 3.46 X10*6/uL (4.20-5.50); Red Cell Distribution Width 18.3 % (11.0-16.0); White Blood Count 10.2 X10*3/uL (4.8-10.8)
--- NOTE | 2024-01-06 09:46 | HO.WOUND ---
Wound Consult: Follow up 88 yr old female admitted to [facility] on 01/02/24 - see H&P for detailed history. Wound consult Follow up for Sacral wound POA. Sacrum 01/03/24 Sacrum 01/06/24 Etiology: Deep Tissue Injury in Evolution -POA Wound Bed: dark maroon nonblanhable tissue with wound edges noted for unroofed blisters Periwound: pink slow to lori tissue Treatment: Triad to allow for moist wound healing and foam to protect from friction and aid in off loading Right Heel 01/06/24 Etiology: ??Deep Tissue Injury Present on Admission Measurements: see charting for detailed measurement Wound Bed: dark maroon purple nonblanchable tissue with epidermal peeling Drainage / Odor: None noted Edges: ? irregular Kyleigh wound: ?red tender warm slow to lori tissue - No Induration or Fluctuance noted Pain: Patient reports significant pain Goals of Treatment: ? Dry dressing and Off Load in Heel protector boots Left Heel 01/06/24 Etiology: ??Deep Tissue Injury Measurements: see charting for detailed measurement Wound Bed: dark purple nonblanchable intact tissue Drainage / Odor: None noted Edges: ? irregular [place]igh wound: ?red tender warm slow to lori tissue - No Induration or Fluctuance noted Pain: denies Goals of Treatment: ? Skin Prep and Off Load in Heel protector boots Recommendations: 1. Turn and Reposition every 2 hours and as needed for patient comfort.? Use pillows or wedges to support off loading positions. 2. Off Load all bony prominences with use of pillows and heel boots if needed.? Apply Preventative foams where needed. ? 3. Monitor for incontinence and moisture control, use barrier creams when needed for prevention and treatment. 4. Provide adequate and supplemental nutrition.? 5. Continue low air loss mattress. 6. When applicable maintain blood glucose levels per Providers order. 7. Sacrum: Off Load Pressure Cleanse with PH balanced wipes - Apply Triad to wound bed - do not scrub between dressing changes Cover with sacral foam dressing. Change every 3 days and PRN. 8. Right Heel - Cleanse with ns moist gauze, Apply skin prep cover with dry gauze and wrap. Place in Heel Protector Boots to off load pressure. 9. Left Heel - Apply skin prep allow to dry. Place in Heel Protector Boots to off load pressure. Re-consult wound care Nurse for wound deterioration or wound changes.
[2024-01-06] MEDS: Enoxaparin Sodium 30 MG/0.3 ML SYRINGE SUBCUT (09:59)
[2024-01-06] MEDS: 0.9 % Sodium Chloride Flush 3 ML SYRINGE IVFLUSH ×3 (09:59→21:09)
[2024-01-06] MEDS: Amiodarone HCL 200 MG TABLET PO (10:00)
[2024-01-06] MEDS: Aspirin Enteric Coated 81 MG TABLET.DR PO (10:00)
[2024-01-06] MEDS: Zinc Oxide 20% Ointment 28.35 GM TUBE 1 APPL TOPICAL (10:01)
--- NOTE | 2024-01-06 11:14 | P.PNNP_ITS ---
Subjective Subjective Date of Service: 01/06/24 Interval history: Seen in follow up for encephalopathy Interval history:persistent confusion, she has removed multiple ivs resulting in infiltion of the iv into the arms and swelling Physical Exam 2 Vital Signs: Vital Signs: Last Vital Signs Temp 98.6 F 01/06/24 07:43 Pulse 60 01/06/24 07:43 Resp 12 01/06/24 07:43 BP 103/49 L 01/06/24 07:43 Pulse Ox 98 01/06/24 07:43 O2 Del Method Room Air 01/06/24 07:43 BMI result Body Mass Index 25.8 Const: General: ill appearing Neck: Neck: Yes supple Resp: Auscultation: clear to auscultation bilaterally Cardio: Palpation: no palpable S3 Heart sounds: no rubs GI: Palpation (GI): Soft to palpation Auscultation: normal bowel sounds Neuro: Motor exam (neuro): no asterixis Objective Data Labs 01/06/24 05:29 01/06/24 05:29 Labs: Laboratory Results - last 24 hr 01/05/24 01/05/24 01/05/24 11:10 15:32 20:26 WBC RBC Hgb Hct MCV MCH MCHC RDW Plt Count MPV Immature Gran % (Auto) Neut % (Auto) Lymph % (Auto) [place] % (Auto) Eos % (Auto) Baso % (Auto) Lymph # (Auto) [place] # (Auto) Eos # (Auto) Baso # (Auto) Abs Immat Gran (auto) Absolute Neuts (auto) Absolute Nucleated RBC Nucleated RBC % (auto) Hold Purple Top Sodium Potassium Chloride Carbon Dioxide Anion Gap BUN Creatinine Estim Creat Clear Calc Estimated GFR POC Glucose 118 H 123 H 181 H Random Glucose Calcium Total Bilirubin Direct Bilirubin AST ALT Alkaline Phosphatase Total Protein Albumin 01/06/24 01/06/24 05:29 07:15 WBC 10.2 RBC 3.46 L Hgb 8.8 L Hct 28.0 L MCV 80.9 MCH 25.4 L MCHC 31.4 RDW 18.3 H Plt Count 165 MPV 12.0 Immature Gran % (Auto) 0.2 Neut % (Auto) 62.2 Lymph % (Auto) 18.6 L [place] % (Auto) 10.1 Eos % (Auto) 8.2 H Baso % (Auto) 0.7 Lymph # (Auto) 1.9 [place] # (Auto) 1.0 Eos # (Auto) 0.8 H Baso # (Auto) 0.1 Abs Immat Gran (auto) 0.02 Absolute Neuts (auto) 6.3 Absolute Nucleated RBC 0.000 Nucleated RBC % (auto) 0.0 Hold Purple Top SEE NOTE Sodium 145 Potassium 3.9 Chloride 116 H Carbon Dioxide 20 L Anion Gap 13 BUN 23 H Creatinine 1.36 Estim Creat Clear Calc 25.6 Estimated GFR 37 POC Glucose 94 Random Glucose 89 Calcium 8.7 Total Bilirubin 0.8 Direct Bilirubin 0.4 AST 81 H ALT 40 H Alkaline Phosphatase 118 H Total Protein 5.5 L Albumin 2.1 L Microbiology Microbiology Results: Microbiology 01/02/24 17:42 Blood - Venous Blood Culture - Preliminary No growth after 48 hours. 01/02/24 17:33 Blood - Venous Blood Culture - Preliminary No growth after 48 hours. Procedures Date of Service Date of Service: 01/06/24 Assessment & Plan Assessment and plan (1) Acute kidney injury: Status: Acute Plan kale due t o hypoperfusion ATN/AGN unlikely based on bland urine findings No obstruction based on sonogram creatinine is improving Suggest HOLD LASIX and ALDACTONE Keep I > O Time Spent With Patient Time: Total time managing care of this patient today ____ minutes. Progress Note: Quality Stroke Does the patient have a stroke diagnosis?: No
[2024-01-06 11:16] LABS: Glucose, Whole Blood 94 mg/dL (60-115)
--- NOTE | 2024-01-06 11:23 | MHC.CM.PN ---
PER DR BUSTOS REQUEST REFERRAL MADE TO [facility] IS ACTIVE WITH PT FOR A HOSPICE IMFORMATIO[facility]
[2024-01-06] MEDS: Acetaminophen 325 MG TABLET 650 MG PO (11:50)
--- NOTE | 2024-01-06 12:24 | MHC.CLN ---
F/U DIET LIBERALIZED DUE TO ADVANCED AGE AND TO PROMOTE PO INTAKE. DIET=REGULAR, PUREE CONSISTENCY. ADDING FORTIFIED ICE CREAM BID. PROVIDES 580 KCALS, 18 G PROTEIN. POOR PO INTAKE. SKIN WITH DTI TO SACRUM AND BILATERAL HEELS. PROVIDE FOOD PREFERENCES AND ENCOURAGE INTAKE ABLE.
--- NOTE | 2024-01-06 14:14 | MHC.SL.DTX ---
Dysphagia Diet modifications: Last documented Solid diet consistencies: Pureed (NDD1) Last documented Liquid consistency: Thin Last documented Medication Administration: Changes made to current diet?: No Liquid Consistency and Strategies: Liquid Intake Recommendation: Thin Compensatory Strategies for Safe Swallow: Small Sips Compensatory Strategies for Safe Swallow(b): Sitting Upright (90 deg) Small Bites and Sips Alternate Liquids/Solids Rate of Ingestion Change Oral Check Solid Food Consistency: Dietary Recommendations: Chopped/Advanced (NDD3) Additional Modifications to Solids: Oral Medication Intake: Whole with Puree Strategies and Precautions to be Taken for Safe Swallow: Sitting Upright (90 deg) Small Bites and Sips Alternate Liquids/Solids Rate of Ingestion Change Oral Check Supervision While Eating and/Drinking: Total Assistance (1:1) Foods to Avoid: Swallowing Recommended Treatments: Compens. Strategy Educat. Level of Impact on: Daily activities: Mild Interpersonal interactions: Education: None Employment: None Community: Mild Prognosis for Improvement: Good Recommendation for Speech: Inpatient Speech Therapy Comment: Recommending UPGRADE to CHOPPED/ADVANCED SOLIDS and keep THIN LIQUIDS. This liberated diet will hopefully give her more menu options. EXPERIMENTAL OUTBOARD MOTORS MECHANIC will continue to follow. Frequency/Duration: Date Range for Service Req: Timeline to reassess: Treatment: Pt seen during Lunch. EXPERIMENTAL OUTBOARD MOTORS MECHANIC ordered a test tray of Chopped/Advanced Solids to be brought with her Puree Solid tray. EXPERIMENTAL OUTBOARD MOTORS MECHANIC offered items from both trays. She reports that she hates chicken when presented to her. She agrees to bites of Puree (mashed potatoes) and a Chopped/Advanced Solid (peaches) with encouragement. She is noted to take small, careful bites independently. Mastication time is mildly delayed with the peaches, but with complete recollection and no overt s/s of aspiration. She tolerated thin liquids via straw (ismael nader) with no overt s/s of aspiration. Inbound Call Center Agent Clinican/Clinical Fellow: No Supervisory Statement: I have reviewed and agree with the student/clinical fellow's documentation: N/A Speech Language Pathologist: Parish Diggs M.A., [facility]-EXPERIMENTAL OUTBOARD MOTORS MECHANIC
[2024-01-06 15:34] VITALS: BP 108/49; PULSE 61; RESP 12; TEMP 37; O2SAT 97
[2024-01-06 16:10] LABS: Glucose, Whole Blood 154 mg/dL (60-115)
--- NOTE | 2024-01-06 18:01 | PC.NURSE ---
Low urine output less than a 100ml in purewick canister reported by TEACHING ASSISTANT ,bladder scanned for 279 ml by TEACHING ASSISTANT Tiffany,Dr. Lewis notified,will encourage po fluids
[2024-01-06 20:00] VITALS: BP 128/73; PULSE 60; RESP 16; TEMP 36.1; O2SAT 99
[2024-01-06 20:49] LABS: Glucose, Whole Blood 202 mg/dL (60-115)
[2024-01-06] MEDS: Atorvastatin Calcium 20 MG TABLET 100 MG PO (21:09)
[2024-01-06] MEDS: Insulin Lispro 100 UNIT/ML 3 ML VIAL SUBCUT (21:09)
[2024-01-06] MEDS: Lactulose 20 GM/30 ML SOLUTION PO (21:09)
[2024-01-07 04:00] VITALS: BP 123/58; PULSE 60; RESP 16; TEMP 36.4; O2SAT 96
[2024-01-07 06:50] LABS: Alanine Aminotransferase 41 U/L (0-31); Albumin Level 2.1 g/dL (3.5-5.0); Alkaline Phosphatase 127 U/L (39-117); Anion Gap 11 (12-20); Aspartate Amino Transferase 85 U/L (5-31); Bilirubin Direct 0.4 mg/dL (0.0-0.5); Bilirubin Total 0.7 mg/dL (0.0-1.0); Blood Urea Nitrogen 23 mg/dL (9-16); Calcium 8.6 mg/dL (8.4-10.2); Carbon Dioxide 22 mmol/L (22-29); Chloride 114 mmol/L (96-108); Creatinine Clr Calc Pharmacy 24.7; Estimated Glomerular Filt Rate 35; Glucose Random 75 mg/dL (60-115); Potassium 3.9 mmol/L (3.3-5.1); Sodium 143 mmol/L (135-145); Total Protein 5.5 g/dL (6.5-8.0)
[2024-01-07 07:45] LABS: Glucose, Whole Blood 79 mg/dL (60-115)
[2024-01-07 08:00] VITALS: BP 116/52; PULSE 60; RESP 18; TEMP 36.6; O2SAT 97
--- NOTE | 2024-01-07 09:15 | HO.PM.IMPN ---
Subjective Subjective Date of Service: 01/07/24 Interval History: Seen in follow up for encephalopathy Interval history: She is less confused, and more alert Physical Exam Vital Signs: Vital Signs: Last Vital Signs Temp 97.8 F 01/07/24 08:00 Pulse 60 01/07/24 08:00 Resp 18 01/07/24 08:00 BP 116/52 L 01/07/24 08:00 Pulse Ox 97 01/07/24 08:00 O2 Del Method Room Air 01/07/24 08:00 BMI result Body Mass Index 25.8 Constitutional - she awaker, alert, oriented to self and no she is the hospital Cardiovascular - S1S2, RRR, No edema Respiratory - Normal lung expansion, Normal respiratory effort, No respiratory distress, CTA bilaterally Gastrointestinal - NT / ND; +BS; No rebound or guarding Extremities - no calf tenderness bilaterally, no swelling Skin - Warm/Dry. Stage 2 decubitus ulcer sacrum without purulent drainage --see picture from prior note Neurological - Arousable to voice, oriented to self only, otherwise nonverbal Psychological - Appropriate affect Objective Data Active Medications Acetaminophen (Acetaminophen 325 Mg Tablet) 650 mg PO Q6H PRN PRN Reason: Pain, Mild (Pain Scale 1-3), fever or headache Last Admin: 01/06/24 11:50 Dose: 650 mg Documented By: AMARILIS Amiodarone HCl (Amiodarone Hcl 200 Mg Tablet) 200 mg PO DAILY [facility] Last Admin: 01/06/24 10:00 Dose: 200 mg Documented By: AMARILIS Aspirin (Aspirin Enteric Coated 81 Mg Tablet.) 81 mg PO DAILY [facility] Last Admin: 01/06/24 10:00 Dose: 81 mg Documented By: AMARILIS Atorvastatin Calcium (Atorvastatin Calcium 20 Mg Tablet) 100 mg PO BEDTIME [facility] Last Admin: 01/06/24 21:09 Dose: 100 mg Documented By: KENDRA Calcitonin [place] (Calcitonin,[place],Synth Nasal 3.7 Ml Bottle) 1 spray NOSTRIL-B DAILY [facility] Last Admin: 01/06/24 10:00 Dose: Not Given Documented By: AMARILIS Non-Admin Reason: Med Not Available Calcium Carbonate (Calcium Carbonate 750 Mg Tab.Chew) 750 mg PO Q4H PRN PRN Reason: Heartburn Enoxaparin Sodium (Enoxaparin Sodium 30 Mg/0.3 Ml Syringe) 30 mg SUBCUT Q24H [facility] Last Admin: 01/06/24 09:59 Dose: 30 mg Documented By: AMARILIS Glucose (Glucose Gel 15 Gm Gel..Gram.) 15 gm PO Q15M PRN; Protocol PRN Reason: per Hypoglycemia Standing Ord. Dextrose (D10) 250 mls @ 750 mls/hr IV Q15M PRN; Protocol PRN Reason: per Hypoglycemia Standing Ord. Insulin Human Lispro (Insulin Lispro 100 Unit/Ml 3 Ml Vial) 0 unit SUBCUT QIDACHS [facility]; Protocol Last Admin: 01/07/24 07:49 Dose: Not Given Documented By: ARGENIS Non-Admin Reason: No Insulin Coverage Lactulose (Lactulose 20 Gm/30 Ml Solution) 20 gm PO TID [facility] Last Admin: 01/06/24 21:09 Dose: 20 gm Documented By: KENDRA Lidocaine (Lidocaine 4 % Patch Adh..Patch) 1 patch TRANSDERMA DAILY PRN PRN Reason: pain Magnesium Hydroxide (Milk Of Magnesia 30 Ml Oral.Susp) 30 ml PO DAILY PRN PRN Reason: Constipation Melatonin (Melatonin 3 Mg Tablet) 6 mg PO BEDTIME PRN PRN Reason: Insomnia Ondansetron HCl (Ondansetron Hcl 4 Mg/2 Ml Vial) 4 mg IVPUSH Q8H PRN PRN Reason: Nausea and Vomiting Sodium Chloride (0.9 % Sodium Chloride Flush 3 Ml Syringe) 3 ml IVFLUSH QSHIFT [facility] Last Admin: 01/06/24 21:09 Dose: 3 ml Documented By: KENDRA Zinc Oxide (Zinc Oxide 20% Ointment 28.35 Gm Tube) 1 appl TOPICAL DAILY [facility]; Protocol Last Admin: 01/06/24 10:01 Dose: 1 appl Documented By: AMARILIS Labs 01/06/24 05:29 01/07/24 05:28 Labs: Laboratory Results - last 24 hr 01/06/24 01/06/24 01/06/24 11:03 15:45 20:43 Hold Purple Top Anion Gap Estim Creat Clear Calc Estimated GFR POC Glucose 94 154 H 202 H Random Glucose Calcium Total Bilirubin Direct Bilirubin AST ALT Alkaline Phosphatase Total Protein Albumin 01/07/24 01/07/24 05:28 07:42 Hold Purple Top SEE NOTE Anion Gap 11 L Estim Creat Clear Calc 24.7 Estimated GFR 35 POC Glucose 79 Random Glucose 75 Calcium 8.6 Total Bilirubin 0.7 Direct Bilirubin 0.4 AST 85 H ALT 41 H Alkaline Phosphatase 127 H Total Protein 5.5 L Albumin 2.1 L Assessment and Plan (1) Metabolic encephalopathy: Status: Acute (2) Acute metabolic encephalopathy: Status: Acute Plan 88/F w/ PAF, not on anticoagulation, CHF NOS, CKD, COPD , CAD admitted for encephalopathy #Acute toxic metabolic encephalopathy- likely combination of hyperammonemia, renal failure and others. -no evidence of infection -continue lactulose -hold gabapentin -EEG done result pending -seen by Neuro--see note, conservaive management -At this point, no indication for LP Dysphagia -Seen by DIRECTOR OF BROADCAST- puree diet/thin liquids. #CKD3b, BLAKE -Creat 2.23 -->2.08-->1.7-->1.6-->1.3-->1.4 -encourage oral water -avoid nephrotoxins, hold lasix/spironolactone -monitor I&O -Follow renal function/lytes -neprho following #elevated LFTs --as cause of high ammonia, US unremarkable #Acute abd pain--resolved -pt localizing pain to abd without guarding or rebound -ct abd/pelvis without acute abnormality #Insulin dependent type 2 diabetes- without hyperglycemia -Continue holding basal insulin until po intake increases -poc glucose, advance to diabetic diet once more awake -admelog on ss #PAF -not on ac (will discuss with daughter reason for no ac) or rate control #Congestive heart failure, unspecified EF/coronary artery disease -clinically euvolemic. Holdin diuretics due to BLAKE #COPD -No exacerbation during admission #Chronic anemia- now microcytic -iron studies wnl -no evidence of bleeding, above transfusion threshold #Stage 2 decubitus ulcer sacrum- present on admission -wound care consult. Offloading/turn and position DVT prophylaxis: Lovenox Full code. need for inpt: delirium and renal failure, receiving ivf daughter interested in hospice referal Quality Stroke Does the patient have a stroke diagnosis?: No VTE Prior VTE?: No VTE Risk Level:: Medical - moderate - high VTE Device Contraindication: Treatment Not Indicated VTE Drug Contraindication: N/A - Med Ordered
[2024-01-07] MEDS: Enoxaparin Sodium 30 MG/0.3 ML SYRINGE SUBCUT (10:17)
[2024-01-07] MEDS: Amiodarone HCL 200 MG TABLET PO (10:17)
[2024-01-07] MEDS: Aspirin Enteric Coated 81 MG TABLET.DR PO (10:17)
[2024-01-07] MEDS: Lactulose 20 GM/30 ML SOLUTION PO ×3 (10:19→21:00)
[2024-01-07] MEDS: 0.9 % Sodium Chloride Flush 3 ML SYRINGE IVFLUSH ×3 (10:20→21:00)
[2024-01-07] MEDS: Zinc Oxide 20% Ointment 28.35 GM TUBE 1 APPL TOPICAL (10:21)
[2024-01-07 11:36] LABS: Glucose, Whole Blood 193 mg/dL (60-115)
[2024-01-07] MEDS: Insulin Lispro 100 UNIT/ML 3 ML VIAL SUBCUT ×2 (12:35→21:00)
[2024-01-07 15:54] VITALS: BP 136/60; PULSE 66; RESP 14; TEMP 36; O2SAT 98
[2024-01-07 16:17] LABS: Glucose, Whole Blood 149 mg/dL (60-115)
[2024-01-07 20:00] VITALS: BP 133/60; PULSE 60; RESP 16; TEMP 36.3; O2SAT 99
[2024-01-07 20:52] LABS: Glucose, Whole Blood 169 mg/dL (60-115)
[2024-01-07] MEDS: Atorvastatin Calcium 20 MG TABLET 100 MG PO (21:00)
[2024-01-08 04:00] VITALS: BP 127/59; PULSE 60; RESP 15; TEMP 36.2; O2SAT 97
[2024-01-08 06:58] LABS: Glucose, Whole Blood 125 mg/dL (60-115)
[2024-01-08 07:19] LABS: Alanine Aminotransferase 41 U/L (0-31); Albumin Level 2.1 g/dL (3.5-5.0); Alkaline Phosphatase 149 U/L (39-117); Anion Gap 13 (12-20); Aspartate Amino Transferase 88 U/L (5-31); Bilirubin Direct 0.3 mg/dL (0.0-0.5); Bilirubin Total 0.6 mg/dL (0.0-1.0); Blood Urea Nitrogen 21 mg/dL (9-16); Calcium 8.6 mg/dL (8.4-10.2); Carbon Dioxide 20 mmol/L (22-29); Chloride 111 mmol/L (96-108); Creatinine Clr Calc Pharmacy 23.1; Estimated Glomerular Filt Rate 33; Glucose Random 125 mg/dL (60-115); Potassium 4.1 mmol/L (3.3-5.1); Sodium 140 mmol/L (135-145); Total Protein 5.5 g/dL (6.5-8.0)
[2024-01-08 08:00] VITALS: BP 112/57; PULSE 60; RESP 18; TEMP 36.5; O2SAT 99
[2024-01-08] MEDS: Lactulose 20 GM/30 ML SOLUTION PO (08:50)
[2024-01-08] MEDS: Enoxaparin Sodium 30 MG/0.3 ML SYRINGE SUBCUT (08:51)
[2024-01-08] MEDS: Aspirin Enteric Coated 81 MG TABLET.DR PO (08:51)
[2024-01-08] MEDS: Amiodarone HCL 200 MG TABLET PO (08:51)
[2024-01-08] MEDS: 0.9 % Sodium Chloride Flush 3 ML SYRINGE IVFLUSH ×2 (08:51→16:17)
[2024-01-08] MEDS: Zinc Oxide 20% Ointment 28.35 GM TUBE 1 APPL TOPICAL (08:52)
--- NOTE | 2024-01-08 09:21 | HO.PM.IMPN ---
Subjective Subjective Date of Service: 01/08/24 Interval History: Seen in follow up for encephalopathy alert, more coherent and less confused Physical Exam Vital Signs: Vital Signs: Last Vital Signs Temp 97.7 F 01/08/24 08:00 Pulse 60 01/08/24 08:00 Resp 18 01/08/24 08:00 BP 112/57 L 01/08/24 08:00 Pulse Ox 99 01/08/24 08:00 O2 Del Method Room Air 01/08/24 08:00 BMI result Body Mass Index 25.8 Constitutional - more alert, oriented to self, hospital Cardiovascular - S1S2, RRR, No edema Respiratory - Normal lung expansion, Normal respiratory effort, No respiratory distress, CTA bilaterally Gastrointestinal - NT / ND; +BS; No rebound or guarding Extremities - no calf tenderness bilaterally, no swelling Skin - Warm/Dry. Stage 2 decubitus ulcer sacrum without purulent drainage --see picture from prior note Neurological - Arousable to voice, oriented to self only, otherwise nonverbal Psychological - Appropriate affect Objective Data Active Medications Acetaminophen (Acetaminophen 325 Mg Tablet) 650 mg PO Q6H PRN PRN Reason: Pain, Mild (Pain Scale 1-3), fever or headache Last Admin: 01/06/24 11:50 Dose: 650 mg Documented By: AMARILIS Amiodarone HCl (Amiodarone Hcl 200 Mg Tablet) 200 mg PO DAILY [facility] Last Admin: 01/08/24 08:51 Dose: 200 mg Documented By: ZAK Aspirin (Aspirin Enteric Coated 81 Mg Tablet.) 81 mg PO DAILY [facility] Last Admin: 01/08/24 08:51 Dose: 81 mg Documented By: ZAK Atorvastatin Calcium (Atorvastatin Calcium 20 Mg Tablet) 100 mg PO BEDTIME [facility] Last Admin: 01/07/24 21:00 Dose: 100 mg Documented By: KENDRA Calcitonin [place] (Calcitonin,[place],Synth Nasal 3.7 Ml Bottle) 1 spray NOSTRIL-B DAILY [facility] Last Admin: 01/07/24 17:09 Dose: Not Given Documented By: ARGENIS Non-Admin Reason: Med Not Available Calcium Carbonate (Calcium Carbonate 750 Mg Tab.Chew) 750 mg PO Q4H PRN PRN Reason: Heartburn Enoxaparin Sodium (Enoxaparin Sodium 30 Mg/0.3 Ml Syringe) 30 mg SUBCUT Q24H [facility] Last Admin: 01/08/24 08:51 Dose: 30 mg Documented By: ZAK Glucose (Glucose Gel 15 Gm Gel..Gram.) 15 gm PO Q15M PRN; Protocol PRN Reason: per Hypoglycemia Standing Ord. Dextrose (D10) 250 mls @ 750 mls/hr IV Q15M PRN; Protocol PRN Reason: per Hypoglycemia Standing Ord. Insulin Human Lispro (Insulin Lispro 100 Unit/Ml 3 Ml Vial) 0 unit SUBCUT QIDACHS [facility]; Protocol Last Admin: 01/08/24 08:11 Dose: Not Given Documented By: ZAK Non-Admin Reason: No Insulin Coverage Lactulose (Lactulose 20 Gm/30 Ml Solution) 20 gm PO TID [facility] Last Admin: 01/08/24 08:50 Dose: 20 gm Documented By: ZAK Lidocaine (Lidocaine 4 % Patch Adh..Patch) 1 patch TRANSDERMA DAILY PRN PRN Reason: pain Magnesium Hydroxide (Milk Of Magnesia 30 Ml Oral.Susp) 30 ml PO DAILY PRN PRN Reason: Constipation Melatonin (Melatonin 3 Mg Tablet) 6 mg PO BEDTIME PRN PRN Reason: Insomnia Ondansetron HCl (Ondansetron Hcl 4 Mg/2 Ml Vial) 4 mg IVPUSH Q8H PRN PRN Reason: Nausea and Vomiting Sodium Chloride (0.9 % Sodium Chloride Flush 3 Ml Syringe) 3 ml IVFLUSH QSHIFT [facility] Last Admin: 01/08/24 08:51 Dose: 3 ml Documented By: ZAK Zinc Oxide (Zinc Oxide 20% Ointment 28.35 Gm Tube) 1 appl TOPICAL DAILY [facility]; Protocol Last Admin: 01/08/24 08:52 Dose: 1 appl Documented By: ZAK Labs 01/06/24 05:29 01/08/24 05:50 Labs: Laboratory Results - last 24 hr 01/07/24 01/07/24 01/07/24 11:29 16:11 20:44 Hold Purple Top Anion Gap Estim Creat Clear Calc Estimated GFR POC Glucose 193 H 149 H 169 H Random Glucose Calcium Total Bilirubin Direct Bilirubin AST ALT Alkaline Phosphatase Total Protein Albumin 01/08/24 01/08/24 05:50 06:50 Hold Purple Top SEE NOTE Anion Gap 13 Estim Creat Clear Calc 23.1 Estimated GFR 33 POC Glucose 125 H Random Glucose 125 H Calcium 8.6 Total Bilirubin 0.6 Direct Bilirubin 0.3 AST 88 H ALT 41 H Alkaline Phosphatase 149 H Total Protein 5.5 L Albumin 2.1 L Microbiology Microbiology Results: Microbiology 01/02/24 17:42 Blood Culture - Final Blood - Venous No growth after 5 days. 01/02/24 17:33 Blood Culture - Final Blood - Venous No growth after 5 days. Assessment and Plan (1) Metabolic encephalopathy: Status: Acute (2) Acute metabolic encephalopathy: Status: Acute Plan 88/F w/ PAF, not on anticoagulation, CHF NOS, CKD, COPD , CAD admitted for encephalopathy #Acute toxic metabolic encephalopathy- likely combination of hyperammonemia, renal failure and others. -no evidence of infection -continue lactulose -hold gabapentin -EEG done result pending -seen by Neuro--see note, conservative management -At this point, no indication for LP Dysphagia -Seen by SHORE WORKING SUPERVISOR- puree diet/thin liquids. #CKD3b, BLAKE -Creat 2.23 -->2.08-->1.7-->1.6-->1.3-->1.4--> 1.5 -encourage oral water -avoid nephrotoxins, hold lasix/spironolactone -monitor I&O -Follow renal function/lytes -neprho following -ivf if not drinking enough #elevated LFTs --as cause of high ammonia, US unremarkable #Acute abd pain--resolved -pt localizing pain to abd without guarding or rebound -ct abd/pelvis without acute abnormality #Insulin dependent type 2 diabetes- without hyperglycemia -Continue holding basal insulin until po intake increases -poc glucose, advance to diabetic diet once more awake -admelog on ss #PAF -not on ac (will discuss with daughter reason for no ac) or rate control #Congestive heart failure, unspecified EF/coronary artery disease -clinically euvolemic. Holding diuretics due to BLAKE #COPD -No exacerbation during admission #Chronic anemia- now microcytic -iron studies wnl -no evidence of bleeding, above transfusion threshold #Stage 2 decubitus ulcer sacrum- present on admission -wound care consult. Offloading/turn and position DVT prophylaxis: Lovenox Full code. need for inpt: delirium and renal failure, receiving ivf daughter interested in hospice referral Quality Stroke Does the patient have a stroke diagnosis?: No VTE Prior VTE?: No VTE Risk Level:: Medical - moderate - high VTE Device Contraindication: Treatment Not Indicated VTE Drug Contraindication: N/A - Med Ordered
[2024-01-08 09:36] LABS: MANUAL DIFF FLAG NO
[2024-01-08 09:40] LABS: Basophils Absolute Auto 0.1 X10*3/uL (0.0-0.2); Basophils Percent Auto 0.7 % (0-2); Eosinophils Percent Auto 9.2 % (0-4); Hematocrit 28.2 % (37.0-47.0); Hemoglobin 8.8 g/dl (12.0-16.0); Imm Gran Abs Auto 0.04 X10*3/uL (0.00-0.03); Imm Gran Pct Auto 0.4 % (0.0-0.4); Lymphocytes Absolute Auto 1.7 X10*3/uL (1.2-4.9); Lymphocytes Percent Auto 14.6 % (20-40); Mean Corpuscular HGB Conc 31.2 g/dl (31.0-35.0); Mean Corpuscular Hemoglobin 25.2 pg (27.0-33.0); Mean Corpuscular Volume 80.8 fL (80.0-98.0); Mean Platelet Volume 12.3 fL (9.4-12.3); Monocytes Absolute Auto 1.2 X10*3/uL (0.1-1.2); Monocytes Percent Auto 10.8 % (2-11); Neutrophils Absolute Auto 7.3 x10*3/uL (2.0-8.3); Neutrophils Percent Auto 64.3 % (45-73); Platelet Count 173 X10*3/uL (160-400); Red Blood Count 3.49 X10*6/uL (4.20-5.50); Red Cell Distribution Width 18.6 % (11.0-16.0); White Blood Count 11.3 X10*3/uL (4.8-10.8)
[2024-01-08] MEDS: Calcitonin,Salmon,Synth Nasal 3.7 ML BOTTLE 1 SPRAY NOSTRIL-B (10:25)
[2024-01-08 11:13] LABS: Glucose, Whole Blood 132 mg/dL (60-115)
[2024-01-08] MEDS: Acetaminophen 325 MG TABLET 650 MG PO (11:54)
[2024-01-08 15:15] VITALS: BP 114/53; PULSE 60; RESP 18; TEMP 36; O2SAT 100
[2024-01-08] MEDS: Lactated Ringers 1,000 ML 100 ML IVCONT (16:17)
[2024-01-08 16:34] LABS: Glucose, Whole Blood 170 mg/dL (60-115)
[2024-01-08] MEDS: Insulin Lispro 100 UNIT/ML 3 ML VIAL SUBCUT (17:01)
[2024-01-08 19:49] VITALS: BP 133/60; PULSE 63; RESP 18; TEMP 36.2; O2SAT 100
[2024-01-08 20:16] LABS: Glucose, Whole Blood 143 mg/dL (60-115)
[2024-01-08] MEDS: Atorvastatin Calcium 20 MG TABLET 100 MG PO (20:40)
[2024-01-09 03:19] VITALS: BP 130/61; PULSE 68; RESP 18; TEMP 36.2; O2SAT 96
[2024-01-09] MEDS: Acetaminophen 325 MG TABLET 650 MG PO ×2 (06:02→12:07)
[2024-01-09 06:35] LABS: Anion Gap 10 (12-20); Blood Urea Nitrogen 21 mg/dL (9-16); Calcium 8.1 mg/dL (8.4-10.2); Carbon Dioxide 21 mmol/L (22-29); Chloride 110 mmol/L (96-108); Creatinine Clr Calc Pharmacy 23.8; Estimated Glomerular Filt Rate 34; Glucose Random 120 mg/dL (60-115); Potassium 4.1 mmol/L (3.3-5.1); Sodium 137 mmol/L (135-145)
[2024-01-09 07:34] VITALS: BP 103/52; PULSE 60; RESP 16; TEMP 36; O2SAT 98
[2024-01-09 07:45] LABS: Glucose, Whole Blood 110 mg/dL (60-115)
[2024-01-09 08:36] VITALS: BP 117/54; PULSE 60
[2024-01-09] MEDS: Amiodarone HCL 200 MG TABLET PO (09:18)
[2024-01-09] MEDS: Calcitonin,Salmon,Synth Nasal 3.7 ML BOTTLE 1 SPRAY NOSTRIL-B (09:18)
[2024-01-09] MEDS: Aspirin Enteric Coated 81 MG TABLET.DR PO (09:18)
[2024-01-09] MEDS: Enoxaparin Sodium 30 MG/0.3 ML SYRINGE SUBCUT (09:18)
--- NOTE | 2024-01-09 09:19 | HO.PM.IMPN ---
Subjective Subjective Date of Service: 01/09/24 Interval History: No new issues, baseline confusion Physical Exam Vital Signs: Vital Signs: Last Vital Signs Temp 96.8 F 01/09/24 07:34 Pulse 60 01/09/24 08:36 Resp 16 01/09/24 07:34 BP 117/54 L 01/09/24 08:36 Pulse Ox 98 01/09/24 07:34 O2 Del Method Room Air 01/09/24 07:34 BMI result Body Mass Index 25.8 Constitutional - more alert, oriented to self, hospital Cardiovascular - S1S2, RRR, No edema Respiratory - Normal lung expansion, Normal respiratory effort, No respiratory distress, CTA bilaterally Gastrointestinal - NT / ND; +BS; No rebound or guarding Extremities - no calf tenderness bilaterally, no swelling Skin - Warm/Dry. Stage 2 decubitus ulcer sacrum without purulent drainage --see picture from prior note Neurological - Arousable to voice, oriented to self only, otherwise nonverbal Psychological - Appropriate affect Objective Data Active Medications Acetaminophen (Acetaminophen 325 Mg Tablet) 650 mg PO Q6H PRN PRN Reason: Pain, Mild (Pain Scale 1-3), fever or headache Last Admin: 01/09/24 06:02 Dose: 650 mg Documented By: SUNNY Amiodarone HCl (Amiodarone Hcl 200 Mg Tablet) 200 mg PO DAILY [facility] Last Admin: 01/08/24 08:51 Dose: 200 mg Documented By: ZAK Aspirin (Aspirin Enteric Coated 81 Mg Tablet.) 81 mg PO DAILY [facility] Last Admin: 01/08/24 08:51 Dose: 81 mg Documented By: ZAK Atorvastatin Calcium (Atorvastatin Calcium 20 Mg Tablet) 100 mg PO BEDTIME [facility] Last Admin: 01/08/24 20:40 Dose: 100 mg Documented By: SUNNY Calcitonin [place] (Calcitonin,[place],Synth Nasal 3.7 Ml Bottle) 1 spray NOSTRIL-B DAILY [facility] Last Admin: 01/08/24 10:25 Dose: 1 spray Documented By: ZAK Calcium Carbonate (Calcium Carbonate 750 Mg Tab.Chew) 750 mg PO Q4H PRN PRN Reason: Heartburn Enoxaparin Sodium (Enoxaparin Sodium 30 Mg/0.3 Ml Syringe) 30 mg SUBCUT Q24H [facility] Last Admin: 01/08/24 08:51 Dose: 30 mg Documented By: ZAK Glucose (Glucose Gel 15 Gm Gel..Gram.) 15 gm PO Q15M PRN; Protocol PRN Reason: per Hypoglycemia Standing Ord. Dextrose (D10) 250 mls @ 750 mls/hr IV Q15M PRN; Protocol PRN Reason: per Hypoglycemia Standing Ord. Insulin Human Lispro (Insulin Lispro 100 Unit/Ml 3 Ml Vial) 0 unit SUBCUT QIDACHS [facility]; Protocol Last Admin: 01/09/24 08:34 Dose: Not Given Documented By: JOE Non-Admin Reason: No Insulin Coverage Lactulose (Lactulose 20 Gm/30 Ml Solution) 20 gm PO TID [facility] Last Admin: 01/08/24 20:46 Dose: Not Given Documented By: SUNNY Non-Admin Reason: Patient Refused Lidocaine (Lidocaine 4 % Patch Adh..Patch) 1 patch TRANSDERMA DAILY PRN PRN Reason: pain Magnesium Hydroxide (Milk Of Magnesia 30 Ml Oral.Susp) 30 ml PO DAILY PRN PRN Reason: Constipation Melatonin (Melatonin 3 Mg Tablet) 6 mg PO BEDTIME PRN PRN Reason: Insomnia Ondansetron HCl (Ondansetron Hcl 4 Mg/2 Ml Vial) 4 mg IVPUSH Q8H PRN PRN Reason: Nausea and Vomiting Sodium Chloride (0.9 % Sodium Chloride Flush 3 Ml Syringe) 3 ml IVFLUSH QSHIFT [facility] Last Admin: 01/08/24 20:45 Dose: Not Given Documented By: SUNNY Non-Admin Reason: IV Running Zinc Oxide (Zinc Oxide 20% Ointment 28.35 Gm Tube) 1 appl TOPICAL DAILY [facility]; Protocol Last Admin: 01/08/24 08:52 Dose: 1 appl Documented By: ZAK Labs 01/08/24 05:50 01/09/24 06:06 Labs: Laboratory Results - last 24 hr 01/08/24 01/08/24 01/08/24 05:50 11:03 16:07 MCV 80.8 MCH 25.2 L MCHC 31.2 RDW 18.6 H Plt Count 173 MPV 12.3 Immature Gran % (Auto) 0.4 Neut % (Auto) 64.3 Lymph % (Auto) 14.6 L Morris % (Auto) 10.8 Eos % (Auto) 9.2 H Baso % (Auto) 0.7 Lymph # (Auto) 1.7 Morris # (Auto) 1.2 Eos # (Auto) 1.0 H Baso # (Auto) 0.1 Abs Immat Gran (auto) 0.04 H Absolute Neuts (auto) 7.3 Absolute Nucleated RBC 0.000 Nucleated RBC % (auto) 0.0 Anion Gap Estim Creat Clear Calc Estimated GFR POC Glucose 132 H 170 H Random Glucose Calcium 01/08/24 01/09/24 01/09/24 20:00 06:06 07:38 MCV MCH MCHC RDW Plt Count MPV Immature Gran % (Auto) Neut % (Auto) Lymph % (Auto) Morris % (Auto) Eos % (Auto) Baso % (Auto) Lymph # (Auto) Morris # (Auto) Eos # (Auto) Baso # (Auto) Abs Immat Gran (auto) Absolute Neuts (auto) Absolute Nucleated RBC Nucleated RBC % (auto) Anion Gap 10 L Estim Creat Clear Calc 23.8 Estimated GFR 34 POC Glucose 143 H 110 Random Glucose 120 H Calcium 8.1 L Assessment and Plan (1) Metabolic encephalopathy: Status: Acute (2) Acute metabolic encephalopathy: Status: Acute Plan 88/F w/ PAF, not on anticoagulation, CHF NOS, CKD, COPD , CAD admitted for encephalopathy #Acute toxic metabolic encephalopathy- likely combination of hyperammonemia, renal failure and others. -no evidence of infection -continue lactulose -hold gabapentin -EEG done result pending -seen by Neuro--see note, conservative management -At this point, no indication for LP Dysphagia -Seen by HAND GLASS CUTTER- puree diet/thin liquids. #CKD3b, BLAKE -Creat 2.23 -->1. 4 today -encourage oral water -avoid nephrotoxins, hold lasix/spironolactone -monitor I&O -Follow renal function/lytes -neprho following -ivf if not drinking enough #elevated LFTs --as cause of high ammonia, US unremarkable #Acute abd pain--resolved -pt localizing pain to abd without guarding or rebound -ct abd/pelvis without acute abnormality #Insulin dependent type 2 diabetes- without hyperglycemia -Continue holding basal insulin until po intake increases -poc glucose, advance to diabetic diet once more awake -admelog on ss #PAF -not on ac (will discuss with daughter reason for no ac) or rate control #Congestive heart failure, unspecified EF/coronary artery disease -clinically euvolemic. Holding diuretics due to BLAKE #COPD -No exacerbation during admission #Chronic anemia- now microcytic -iron studies wnl -no evidence of bleeding, above transfusion threshold #Stage 2 decubitus ulcer sacrum- present on admission -wound care consult. Offloading/turn and position DVT prophylaxis: Lovenox Full code. need for inpt: delirium and renal failure, receiving ivf daughter interested in hospice referral Quality Stroke Does the patient have a stroke diagnosis?: No VTE Prior VTE?: No VTE Risk Level:: Medical - moderate - high VTE Device Contraindication: Treatment Not Indicated VTE Drug Contraindication: N/A - Med Ordered
[2024-01-09 11:30] LABS: Glucose, Whole Blood 179 mg/dL (60-115)
[2024-01-09] MEDS: Insulin Lispro 100 UNIT/ML 3 ML VIAL SUBCUT (12:06)
--- NOTE | 2024-01-09 14:09 | MHC.SLORD ---
Speech Language Pathology Order Status: Patient checked in with at breakfast and lunch, with meals mostly concluded at time of visit. Patient tolerating diet, however continues to eat only small amounts, and elects at times to eat only purees. COMPUTER AIDED DESIGN DESIGNER will continue to follow.
--- NOTE | 2024-01-09 14:24 | MHC.CLN ---
F/U DIET LIBERALIZED DUE TO ADVANCED AGE AND TO PROMOTE PO INTAKE. DIET=REGULAR, PUREE CONSISTENCY. FORTIFIED ICE CREAM BID PROVIDES 580 KCALS, 18 G PROTEIN. USUALLY EATS SMALL AMOUNTS, 25-50%. SKIN WITH DTI TO SACRUM AND BILATERAL HEELS. PROVIDE FOOD PREFERENCES AND ENCOURAGE INTAKE ABLE.
[2024-01-09 15:23] VITALS: BP 122/58; PULSE 66; RESP 18; TEMP 36.6; O2SAT 100
[2024-01-09 16:31] LABS: Glucose, Whole Blood 139 mg/dL (60-115)
[2024-01-09 20:00] VITALS: BP 120/55; PULSE 60; RESP 18; TEMP 36.2; O2SAT 99
[2024-01-09 20:21] LABS: Glucose, Whole Blood 95 mg/dL (60-115)
[2024-01-09] MEDS: Atorvastatin Calcium 20 MG TABLET 100 MG PO (20:43)
[2024-01-09] MEDS: Lactulose 20 GM/30 ML SOLUTION PO (20:44)
[2024-01-09] MEDS: 0.9 % Sodium Chloride Flush 3 ML SYRINGE IVFLUSH (20:44)
[2024-01-10 03:53] VITALS: BP 131/58; PULSE 65; RESP 18; TEMP 36.7; O2SAT 95
[2024-01-10 06:14] LABS: Hematocrit 27.4 % (37.0-47.0); Hemoglobin 8.8 g/dl (12.0-16.0); Mean Corpuscular HGB Conc 32.1 g/dl (31.0-35.0); Mean Corpuscular Hemoglobin 25.1 pg (27.0-33.0); Mean Corpuscular Volume 78.3 fL (80.0-98.0); Mean Platelet Volume 12.9 fL (9.4-12.3); Platelet Count 179 X10*3/uL (160-400); Red Cell Distribution Width 18.6 % (11.0-16.0); White Blood Count 9.5 X10*3/uL (4.8-10.8)
[2024-01-10 06:19] LABS: Anion Gap 12 (12-20); Blood Urea Nitrogen 26 mg/dL (9-16); Carbon Dioxide 20 mmol/L (22-29); Chloride 110 mmol/L (96-108); Creatinine Clr Calc Pharmacy 20.8; Estimated Glomerular Filt Rate 29; Glucose Random 97 mg/dL (60-115); Potassium 4.4 mmol/L (3.3-5.1); Sodium 138 mmol/L (135-145)
[2024-01-10 07:13] VITALS: BP 111/51; PULSE 60; RESP 16; TEMP 36.2; O2SAT 97
[2024-01-10 07:38] LABS: Glucose, Whole Blood 83 mg/dL (60-115)
--- NOTE | 2024-01-10 08:40 | P.PNNP_ITS ---
Subjective Subjective Date of Service: 01/10/24 Interval history: Has baseline confusion. All recent data reviewed Physical Exam 2 Vital Signs: Vital Signs: Last Vital Signs Temp 97.1 F 01/10/24 07:13 Pulse 60 01/10/24 07:13 Resp 16 01/10/24 07:13 BP 111/51 L 01/10/24 07:13 Pulse Ox 97 01/10/24 07:13 O2 Del Method Room Air 01/10/24 07:13 BMI result Body Mass Index 25.8 Const: General: no acute distress Neck: Neck: Yes supple Resp: Auscultation: diminished lung sounds Cardio: Rate: regular rate GI: Palpation (GI): Soft to palpation Neuro: Other: Has baseline confusion Objective Data Labs 01/10/24 05:21 01/10/24 05:21 Labs: Laboratory Results - last 24 hr 01/09/24 01/09/24 01/09/24 11:21 16:27 20:04 WBC RBC Hgb Hct MCV MCH MCHC RDW Plt Count MPV Absolute Nucleated RBC Nucleated RBC % (auto) Sodium Potassium Chloride Carbon Dioxide Anion Gap BUN Creatinine Estim Creat Clear Calc Estimated GFR POC Glucose 179 H 139 H 95 Random Glucose Calcium 01/10/24 01/10/24 05:21 07:17 WBC 9.5 RBC 3.50 L Hgb 8.8 L Hct 27.4 L MCV 78.3 L MCH 25.1 L MCHC 32.1 RDW 18.6 H Plt Count 179 MPV 12.9 H Absolute Nucleated RBC 0.000 Nucleated RBC % (auto) 0.0 Sodium 138 Potassium 4.4 Chloride 110 H Carbon Dioxide 20 L Anion Gap 12 BUN 26 H Creatinine 1.67 H Estim Creat Clear Calc 20.8 Estimated GFR 29 POC Glucose 83 Random Glucose 97 Calcium 8.0 L Microbiology Microbiology Results: Microbiology 01/02/24 17:42 Blood - Venous Blood Culture - Final No growth after 5 days. 01/02/24 17:33 Blood - Venous Blood Culture - Final No growth after 5 days. Procedures Date of Service Date of Service: 01/10/24 Assessment & Plan Assessment and plan (1) Acute kidney injury: Status: Acute Plan BLAKE due to compromise in renal perfusion Serum creatinine fairly stable; Na normal C/W current supportive care; Goals of care ? Progress Note: Quality Stroke Does the patient have a stroke diagnosis?: No
[2024-01-10] MEDS: 0.9 % Sodium Chloride Flush 3 ML SYRINGE IVFLUSH ×2 (09:32→16:20)
[2024-01-10] MEDS: Aspirin Enteric Coated 81 MG TABLET.DR PO (09:33)
[2024-01-10] MEDS: Amiodarone HCL 200 MG TABLET PO (09:33)
[2024-01-10] MEDS: Enoxaparin Sodium 30 MG/0.3 ML SYRINGE SUBCUT (09:33)
[2024-01-10] MEDS: Calcitonin,Salmon,Synth Nasal 3.7 ML BOTTLE 1 SPRAY NOSTRIL-B (09:34)
[2024-01-10] MEDS: Zinc Oxide 20% Ointment 28.35 GM TUBE 1 APPL TOPICAL (09:34)
--- NOTE | 2024-01-10 11:10 | MHC.CM.PN ---
CM REACHED OUT TO [employer] [facility] TO DETERMINE IF [facility] WAS SEEING PT, [facility] RN WAS UNABLE TO GIVE CM ANY CURRENT INFO, CM SENT REFERRAL TO [facility], CM WILL REACH OUT TO PRIMARY CONTACT DTR RADHA AT NUMBER ON FILE FIRST ATTEMPT WAS UNSUCCESSFUL.
[2024-01-10 11:23] LABS: Glucose, Whole Blood 170 mg/dL (60-115)
--- NOTE | 2024-01-10 12:04 | MHC.SL.DTX ---
Dysphagia Diet modifications: Last documented Solid diet consistencies: Chopped/Advanced (NDD3) Last documented Liquid consistency: Thin Last documented Medication Administration: Changes made to current diet?: No Liquid Consistency and Strategies: Liquid Intake Recommendation: Thin Compensatory Strategies for Safe Swallow: Small Sips Compensatory Strategies for Safe Swallow(b): Sitting Upright (90 deg) Small Bites and Sips Alternate Liquids/Solids Rate of Ingestion Change Oral Check Solid Food Consistency: Dietary Recommendations: Chopped/Advanced (NDD3) Additional Modifications to Solids: Pt is at her baseline diet and skilled TRACER POWDER BLENDER services are no longer required. Discharging with a recommended diet of CHOPPED/ADVANCED SOLIDS (NDD3) and THIN LIQUIDS. MEDS WHOLE with PUREE, or LIQUID, as preferred. Please re-consult if status changes. Oral Medication Intake: Whole with Puree Strategies and Precautions to be Taken for Safe Swallow: Sitting Upright (90 deg) Small Bites and Sips Alternate Liquids/Solids Rate of Ingestion Change Oral Check Supervision While Eating and/Drinking: Total Assistance (1:1) Foods to Avoid: Swallowing Recommended Treatments: Compens. Strategy Educat. Level of Impact on: Daily activities: Mild Interpersonal interactions: Education: None Employment: None Community: Mild Prognosis for Improvement: Good Recommendation for Speech: Inpatient Speech Therapy Treatment: Pt seen for follow-up this morning. She is complaining of pain in her right thigh area. She tolerated Thin Liquids via administered straw sip with no overt s/s of aspiration. Pt is noted to take small, careful sips independently. She tolerated bites of Puree Solids and Chopped Advanced Solids (moistened cracker) with delayed oral preparation but completed recollection with no evidence of oral residue present. Follow-up sips of Thin Liquids administered via straw resulted in no overt s/s of aspiration. Pt continues to be a selective eater, but reports that she at all of her Spanish [place] this morning and enjoyed it. Pt is at her baseline diet and skilled TRACER POWDER BLENDER services are no longer required. Discharging with a recommended diet of CHOPPED/ADVANCED SOLIDS (NDD3) and THIN LIQUIDS. MEDS WHOLE with PUREE, or LIQUID, as preferred. Please re-consult if status changes. Assessment: Early Childhood Worker Clinican/Clinical Fellow: No Supervisory Statement: I have reviewed and agree with the student/clinical fellow's documentation: N/A Speech Language Pathologist: Parish Diggs M.A., [facility]-TRACER POWDER BLENDER
[2024-01-10] MEDS: Acetaminophen 325 MG TABLET 650 MG PO (12:14)
[2024-01-10] MEDS: Lidocaine 4 % Patch ADH..PATCH 1 PATCH TRANSDERMA (12:17)
[2024-01-10] MEDS: Insulin Lispro 100 UNIT/ML 3 ML VIAL SUBCUT (12:20)
--- NOTE | 2024-01-10 13:34 | HO.PM.IMPN ---
Subjective Subjective Date of Service: 01/10/24 Interval History: encephalopathy Review of Systems mantal status seems similar to yesterday no fevers refuses lactulose intermitent. Physical Exam Vital Signs: Vital Signs: Last Vital Signs Temp 97.1 F 01/10/24 07:13 Pulse 60 01/10/24 07:13 Resp 16 01/10/24 07:13 BP 111/51 L 01/10/24 07:13 Pulse Ox 97 01/10/24 07:13 O2 Del Method Room Air 01/10/24 07:13 BMI result Body Mass Index 25.8 Appearance: awke ,Alert to name ,hospital. cvs: [id number], [id number] . res: clear to auscultation ,no rhonchii or wheezing abd: no rebound or guarding ,nt, bs present. ext pulses present , no cyanosis . neuro: axo3 , nonfocal. Objective Data Active Medications Acetaminophen (Acetaminophen 325 Mg Tablet) 650 mg PO Q6H PRN PRN Reason: Pain, Mild (Pain Scale 1-3), fever or headache Last Admin: 01/10/24 12:14 Dose: 650 mg Documented By: HECTOR Amiodarone HCl (Amiodarone Hcl 200 Mg Tablet) 200 mg PO DAILY [facility] Last Admin: 01/10/24 09:33 Dose: 200 mg Documented By: HECTOR Aspirin (Aspirin Enteric Coated 81 Mg Tablet.) 81 mg PO DAILY [facility] Last Admin: 01/10/24 09:33 Dose: 81 mg Documented By: HECTOR Atorvastatin Calcium (Atorvastatin Calcium 20 Mg Tablet) 100 mg PO BEDTIME [facility] Last Admin: 01/09/24 20:43 Dose: 100 mg Documented By: ARCHANA Calcitonin Barnum (Calcitonin,Barnum,Synth Nasal 3.7 Ml Bottle) 1 spray NOSTRIL-B DAILY [facility] Last Admin: 01/10/24 09:34 Dose: 1 spray Documented By: HECTOR Calcium Carbonate (Calcium Carbonate 750 Mg Tab.Chew) 750 mg PO Q4H PRN PRN Reason: Heartburn Enoxaparin Sodium (Enoxaparin Sodium 30 Mg/0.3 Ml Syringe) 30 mg SUBCUT Q24H [facility] Last Admin: 01/10/24 09:33 Dose: 30 mg Documented By: HECTOR Glucose (Glucose Gel 15 Gm Gel..Gram.) 15 gm PO Q15M PRN; Protocol PRN Reason: per Hypoglycemia Standing Ord. Dextrose (D10) 250 mls @ 750 mls/hr IV Q15M PRN; Protocol PRN Reason: per Hypoglycemia Standing Ord. Insulin Human Lispro (Insulin Lispro 100 Unit/Ml 3 Ml Vial) 0 unit SUBCUT QIDACHS [facility]; Protocol Last Admin: 01/10/24 12:20 Dose: 2 unit Documented By: HECTOR Lactulose (Lactulose 20 Gm/30 Ml Solution) 20 gm PO TID [facility] Last Admin: 01/10/24 09:33 Dose: Not Given Documented By: HECTOR Non-Admin Reason: Patient Refused Lamotrigine (Lamotrigine 25 Mg Tablet) 25 mg PO BEDTIME [facility] Lidocaine (Lidocaine 4 % Patch Adh..Patch) 1 patch TRANSDERMA DAILY PRN PRN Reason: pain Last Admin: 01/10/24 12:17 Dose: 1 patch Documented By: HECTOR Magnesium Hydroxide (Milk Of Magnesia 30 Ml Oral.Susp) 30 ml PO DAILY PRN PRN Reason: Constipation Melatonin (Melatonin 3 Mg Tablet) 6 mg PO BEDTIME PRN PRN Reason: Insomnia Ondansetron HCl (Ondansetron Hcl 4 Mg/2 Ml Vial) 4 mg IVPUSH Q8H PRN PRN Reason: Nausea and Vomiting Sodium Chloride (0.9 % Sodium Chloride Flush 3 Ml Syringe) 3 ml IVFLUSH QSHIFT [facility] Last Admin: 01/10/24 09:32 Dose: 3 ml Documented By: HECTOR Zinc Oxide (Zinc Oxide 20% Ointment 28.35 Gm Tube) 1 appl TOPICAL DAILY [facility]; Protocol Last Admin: 01/10/24 09:34 Dose: 1 appl Documented By: HECTOR Labs 01/10/24 05:21 01/10/24 05:21 Labs: Laboratory Results - last 24 hr 01/09/24 01/09/24 01/10/24 16:27 20:04 05:21 MCV 78.3 L MCH 25.1 L MCHC 32.1 RDW 18.6 H Plt Count 179 MPV 12.9 H Absolute Nucleated RBC 0.000 Nucleated RBC % (auto) 0.0 Anion Gap 12 Estim Creat Clear Calc 20.8 Estimated GFR 29 POC Glucose 139 H 95 Random Glucose 97 Calcium 8.0 L 01/10/24 01/10/24 07:17 11:17 MCV MCH MCHC RDW Plt Count MPV Absolute Nucleated RBC Nucleated RBC % (auto) Anion Gap Estim Creat Clear Calc Estimated GFR POC Glucose 83 170 H Random Glucose Calcium Assessment and Plan (1) Metabolic encephalopathy: Status: Acute Plan 88/F w/ PAF, not on anticoagulation, CHF NOS, CKD, COPD , CAD admitted for encephalopathy Acute toxic metabolic encephalopathy- likely combination of hyperammonemia, renal failure and others. no evidence of infection continue lactulose,hold gabapentin EEG :Mildly abnormal EEG suggestive of left hemispheric irritability. 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 CKD3b, BLAKE monitor I&O cr 1.67 encourage oral water,avoid nephrotoxins, hold lasix/spironolactone Follow renal function/lytes elevated LFTs --as cause of high ammonia, US unremarkable no biliary dilation Acute abd pain--resolved -pt localizing pain to abd without guarding or rebound -ct abd/pelvis without acute abnormality Insulin dependent type 2 diabetes- fs fluctuating Continue holding basal insulin until po intake increases poc glucose, advance to diabetic diet once more awake admelog on ss PAF-not on ac (will discuss with daughter reason for no ac) or rate control. Congestive heart failure, unspecified EF/coronary artery disease -clinically euvolemic. Holding diuretics due to BLAKE COPD-No exacerbation during admission Chronic anemia- now microcytic -iron studies wnl -no evidence of bleeding, above transfusion threshold Stage 2 decubitus ulcer sacrum- present on admission -wound care consult. Offloading/turn and position DVT prophylaxis: Lovenox need for inpt: delirium and renal failure, receiving ivf daughter interested in hospice referral Quality Stroke Does the patient have a stroke diagnosis?: No VTE Prior VTE?: No VTE Risk Level:: Medical - moderate - high VTE Device Contraindication: Treatment Not Indicated VTE Drug Contraindication: N/A - Med Ordered
[2024-01-10 15:25] VITALS: BP 121/53; PULSE 60; RESP 18; TEMP 36.2; O2SAT 100
[2024-01-10] MEDS: Lactulose 20 GM/30 ML SOLUTION PO ×2 (15:45→20:33)
--- NOTE | 2024-01-10 16:20 | MHC.CM.PN ---
EMR REVIEWED, CM CONTACTED PT'S DTR SKYLAR AT NUMBER ON FILE, CM REQUESTED SKYLAR COME IN TO SEE PT AND HELP DETERMINE IF SHE IS AT BASELINE, P.T. RECOMMENDING CUSTODIAL CARE HOWEVER FAMILY WILL LIKELY TAKE PT HOME SHE DOES NOT HAVE PAYOR SOURCE FOR LTC., CM WILL FOLLOW UP W/SKYLAR TOMORROW 01/10, CM WILL CONT TO FOLLOW.
[2024-01-10 16:32] LABS: Glucose, Whole Blood 131 mg/dL (60-115)
[2024-01-10 18:58] VITALS: BP 129/58; PULSE 60; RESP 18; TEMP 36.4; O2SAT 99
[2024-01-10 20:06] LABS: Glucose, Whole Blood 130 mg/dL (60-115)
[2024-01-10] MEDS: Atorvastatin Calcium 20 MG TABLET 100 MG PO (20:33)
[2024-01-10] MEDS: lamoTRIgine 25 MG TABLET PO (20:33)
[2024-01-10] MEDS: traZODone HCL 25 MG HALFTAB PO (20:33)
[2024-01-11] MEDS: 0.9 % Sodium Chloride Flush 3 ML SYRINGE IVFLUSH ×4 (01:11→22:02)
[2024-01-11 03:08] VITALS: BP 108/53; PULSE 60; RESP 18; TEMP 36.5; O2SAT 96
[2024-01-11 07:45] VITALS: BP 108/49; PULSE 81; RESP 16; TEMP 36; O2SAT 99
[2024-01-11 07:51] LABS: Glucose, Whole Blood 113 mg/dL (60-115)
[2024-01-11] MEDS: Amiodarone HCL 200 MG TABLET PO (08:54)
[2024-01-11] MEDS: Aspirin Enteric Coated 81 MG TABLET.DR PO (08:54)
[2024-01-11] MEDS: Enoxaparin Sodium 30 MG/0.3 ML SYRINGE SUBCUT (08:54)
[2024-01-11] MEDS: Calcitonin,Salmon,Synth Nasal 3.7 ML BOTTLE 1 SPRAY NOSTRIL-B (08:56)
--- NOTE | 2024-01-11 10:22 | MHC.CLN ---
F/U SEEN BY STEM MAKER WITH UPGRADE OF DIET CONSISTENCY. DIET=REGULAR, CHOPPED CONSISTENCY. FORTIFIED ICE CREAM BID PROVIDES 580 KCALS, 18 G PROTEIN. INTAKE VARIABLE, 25-75%, BUT USUALLY LESS THAN 50%. SKIN WITH DTI BILATERAL HEELS AND STAGE II TO SACRUM. PROVIDE FOOD PREFERENCES AND ENCOURAGE INTAKE ABLE.
[2024-01-11] MEDS: Acetaminophen 325 MG TABLET 650 MG PO ×2 (10:24)
[2024-01-11] MEDS: Zinc Oxide 20% Ointment 28.35 GM TUBE 1 APPL TOPICAL (10:26)
[2024-01-11 11:25] LABS: Glucose, Whole Blood 133 mg/dL (60-115)
--- NOTE | 2024-01-11 12:59 | P.PNIM_ITS ---
Subjective Subjective Date of Service: 01/11/24 Interval History: encephalopathy Review of Systems mental status similar leg pains somewhat improving Physical Exam 2 Vital Signs: Vital Signs: Last Vital Signs Temp 96.8 F 01/11/24 07:45 Pulse 81 01/11/24 07:45 Resp 16 01/11/24 07:45 BP 108/49 L 01/11/24 07:45 Pulse Ox 99 01/11/24 07:45 O2 Del Method Room Air 01/11/24 07:45 BMI result Body Mass Index 25.8 Appearance: awke ,Alert . cvs: rrr, [id number] . res: clear to auscultation ,no rhonchii or wheezing abd: no rebound or guarding ,nt, bs present. ext pulses present , no cyanosis . neuro: nonfocal. skin-right heel /left heel /sacrum area - similar (see pic from wound care note 01/05). Objective Data Active Medications Acetaminophen (Acetaminophen 325 Mg Tablet) 975 mg PO Q6H PRN PRN Reason: Pain, Mild (Pain Scale 1-3), fever or headache Amiodarone HCl (Amiodarone Hcl 200 Mg Tablet) 200 mg PO DAILY [facility] Last Admin: 01/11/24 08:54 Dose: 200 mg Documented By: HECTOR Artificial Tears (Artificial Tears 15 Ml Drops) 1 drop EYE-BOTH Q4H PRN PRN Reason: Dry Eyes Aspirin (Aspirin Enteric Coated 81 Mg Tablet.) 81 mg PO DAILY [facility] Last Admin: 01/11/24 08:54 Dose: 81 mg Documented By: HECTOR Atorvastatin Calcium (Atorvastatin Calcium 20 Mg Tablet) 100 mg PO BEDTIME [facility] Last Admin: 01/10/24 20:33 Dose: 100 mg Documented By: MARSHALL Calcitonin Felt (Calcitonin,Felt,Synth Nasal 3.7 Ml Bottle) 1 spray NOSTRIL-B DAILY [facility] Last Admin: 01/11/24 08:56 Dose: 1 spray Documented By: HECTOR Calcium Carbonate (Calcium Carbonate 750 Mg Tab.Chew) 750 mg PO Q4H PRN PRN Reason: Heartburn Enoxaparin Sodium (Enoxaparin Sodium 30 Mg/0.3 Ml Syringe) 30 mg SUBCUT Q24H [facility] Last Admin: 01/11/24 08:54 Dose: 30 mg Documented By: HECTOR Glucose (Glucose Gel 15 Gm Gel..Gram.) 15 gm PO Q15M PRN; Protocol PRN Reason: per Hypoglycemia Standing Ord. Dextrose (D10) 250 mls @ 750 mls/hr IV Q15M PRN; Protocol PRN Reason: per Hypoglycemia Standing Ord. Insulin Human Lispro (Insulin Lispro 100 Unit/Ml 3 Ml Vial) 0 unit SUBCUT QIDACHS [facility]; Protocol Last Admin: 01/11/24 11:36 Dose: Not Given Documented By: HECTOR Non-Admin Reason: No Insulin Coverage Lactulose (Lactulose 20 Gm/30 Ml Solution) 20 gm PO TID [facility] Last Admin: 01/11/24 10:25 Dose: Not Given Documented By: HECTOR Non-Admin Reason: Patient Refused Lamotrigine (Lamotrigine 25 Mg Tablet) 25 mg PO BEDTIME [facility] Last Admin: 01/10/24 20:33 Dose: 25 mg Documented By: MARSHALL Lidocaine (Lidocaine 4 % Patch Adh..Patch) 1 patch TRANSDERMA DAILY PRN PRN Reason: pain Last Admin: 01/10/24 12:17 Dose: 1 patch Documented By: HECTOR Magnesium Hydroxide (Milk Of Magnesia 30 Ml Oral.Susp) 30 ml PO DAILY PRN PRN Reason: Constipation Melatonin (Melatonin 3 Mg Tablet) 6 mg PO BEDTIME PRN PRN Reason: Insomnia Last Admin: 01/11/24 00:00 Dose: 6 mg Documented By: MARSHALL Ondansetron HCl (Ondansetron Hcl 4 Mg/2 Ml Vial) 4 mg IVPUSH Q8H PRN PRN Reason: Nausea and Vomiting Sodium Chloride (0.9 % Sodium Chloride Flush 3 Ml Syringe) 3 ml IVFLUSH QSHIFT [facility] Last Admin: 01/11/24 08:55 Dose: 3 ml Documented By: HECTOR Trazodone HCl (Trazodone Hcl 25 Mg Halftab) 25 mg PO BID PRN PRN Reason: Pain, Moderate(Pain Scale 4-6) Last Admin: 01/10/24 20:33 Dose: 25 mg Documented By: MARSHALL Zinc Oxide (Zinc Oxide 20% Ointment 28.35 Gm Tube) 1 appl TOPICAL DAILY [facility]; Protocol Last Admin: 01/11/24 10:26 Dose: 1 appl Documented By: HECTOR Labs 01/10/24 05:21 01/10/24 05:21 Labs: Laboratory Results - last 24 hr 01/10/24 01/10/24 01/11/24 16:14 19:10 07:47 POC Glucose 131 H 130 H 113 01/11/24 11:20 POC Glucose 133 H Assessment and Plan (1) Metabolic encephalopathy: Status: Acute Assessment and Plan: 88/F w/ PAF, not on anticoagulation, CHF NOS, CKD, COPD , CAD admitted for encephalopathy Acute toxic metabolic encephalopathy- likely combination of hyperammonemia, renal failure and others. no evidence of infection continue lactulose,hold gabapentin EEG :Mildly abnormal EEG suggestive of left hemispheric irritability. 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 CKD3b, BLAKE monitor I&O cr 1.67 encourage oral water,avoid nephrotoxins, hold lasix/spironolactone Follow renal function/lytes elevated LFTs --as cause of high ammonia, US unremarkable no biliary dilation Acute abd pain--resolved -pt localizing pain to abd without guarding or rebound -ct abd/pelvis without acute abnormality Insulin dependent type 2 diabetes- fs fluctuating Continue holding basal insulin until po intake increases poc glucose, advance to diabetic diet once more awake admelog on ss PAF-not on ac (will discuss with daughter reason for no ac) or rate control. Congestive heart failure, unspecified EF/coronary artery disease -clinically euvolemic. Holding diuretics due to BLAKE COPD-No exacerbation during admission Chronic anemia- now microcytic -iron studies wnl -no evidence of bleeding, above transfusion threshold Stage 2 decubitus ulcer sacrum, right heel/left heel DTI- present on admission wound care rec: Turn and Reposition every 2 hours and as needed for patient comfort.? Use pillows or wedges to support off loading positions. Off Load all bony prominences with use of pillows and heel boots if needed.? Apply Preventative foams where needed. ? Monitor for incontinence and moisture control, use barrier creams when needed for prevention and treatment. Provide adequate and supplemental nutrition.? Continue low air loss mattress. When applicable maintain blood glucose levels per Providers order. Sacrum: Off Load Pressure Cleanse with PH balanced wipes - Apply Triad to wound bed - do not scrub between dressing changes Cover with sacral foam dressing. Change every 3 days and PRN. Right Heel - Cleanse with ns moist gauze, Apply skin prep cover with dry gauze and wrap. Place in Heel Protector Boots to off load pressure. Left Heel - Apply skin prep allow to dry. Place in Heel Protector Boots to off load pressure. has leg pains : xray hip arthritis , some edema does not seem any erythema plan: lidocaine patch ,tylenol,trazodone family defers further interventions DVT prophylaxis: Lovenox Patient family had hospice meeting-main focus is hospice rather than actively treating, lab draws or further testing or interventions. Quality Stroke Does the patient have a stroke diagnosis?: No VTE Prior VTE?: No VTE Risk Level:: Medical - moderate - high VTE Device Contraindication: Treatment Not Indicated VTE Drug Contraindication: N/A - Med Ordered
--- NOTE | 2024-01-11 13:17 | W.MHC.ACPN ---
Advanced Care Planning Note Advanced Care Planning Note Time spent (in minutes): 30 Narrative: Patient has multiple comorbidities including acute toxic metabolic encephalopathy, dysphagia, BLAKE on CKD, diabetes, AFib, COPD,Congestive heart failure, unspecified EF/coronary artery disease, chronic anemia: Patient overall condition discussed with the family in detail length(yesterday and today) they do not want to escalate the care further-so family decided for hospice care, hospice meeting was done by hospice team. Patient daughter miss: Decided for hospice care. No further blood draw or active treatments Problems Discussed (1) Metabolic encephalopathy:
--- NOTE | 2024-01-11 13:35 | MHC.CM.PN ---
CM SPOKE WITH DAUGHTER SKYLAR WHO DID THE INFORMATIONAL WITH [facility] AND IS AGREEABLE TO HOSPICE SERVICES AT HOME. DAUGHTER AND SPOUSE WILL NEED TIME TO DISMANTLE THE BED SO EQUIPMENT CAN BE DELIVERED BY [facility]. PT WILL RETURN TO [address] [place] [address] [place] [address]. [facility] UPDATED, EQUIPMENT TO BE DELIVERED IN THE A.M. / THEN PLAN FOR AN AFTERNOON DC FOR PT. CM WILL CONTINUE TO FOLLOW FOR ANY CHANGE TO DC PLAN.
--- NOTE | 2024-01-11 14:25 | HO.WOUND ---
Wound Consult: Follow up 88 yr old female admitted to [facility] on 01/02/24 - see H&P for detailed history. Wound consult Follow up for Sacral wound POA. Sacrum 01/03/24 Sacrum 01/06/24 01/11/24 Etiology: Declared Stage 2 Pressure Injury -POA Wound Bed:red moist wound bed - partial thickness tissue loss - epidermal sloughing with partial thickness tissue noted under lifting Periwound: Improving periwound pink slow to lori tissue improving dark hyperpigmented DTI tissue Treatment: Triad to allow for moist wound healing and foam to protect from friction and aid in off loading Of note provider orders topical Zinc cream to be applied and has been in place - given overall improvement recommend constinue with Zinc whiel at bedside then may swtich to Triad for continued treatment. Right Heel 01/06/24 01/11/24 Etiology: ??Deep Tissue Injury Present on Admission Measurements: see charting for detailed measurement Wound Bed: continues to evolve - dark maroon purple nonblanchable tissue with epidermal peeling central necrosis observed Drainage / Odor: None noted Edges: ? irregular Kyleigh wound: ?red tender warm slow to lori tissue - No Induration or Fluctuance noted Pain: Patient reports significant pain Goals of Treatment: ?Skin prep and Off Load in Heel protector boots - Do not use Foam dressing Left Heel 01/06/24 01/11/24 Etiology: ??Deep Tissue Injury Measurements: see charting for detailed measurement Wound Bed: dark purple nonblanchable intact tissue Drainage / Odor: None noted Edges: ? irregular Kyleigh wound: ?red tender warm slow to lori tissue - No Induration or Fluctuance noted Pain: denies Goals of Treatment: ? Skin Prep and Off Load in Heel protector boots - Do not use foam dressing Of note patient has various skin injuries not pressure related - bilateral torchanter sites are intact pink irregular edges tissue remains blanchable. Preventative foams applied. Bilateral upper arms with resolving blisters observed - recommend xeroform and gauze wrap. Left Leg with various red intact lesions some are blanchable some remain nonblanchable - not consistent with pressure injury - provider aware. Skin prep applied. Recommend limited adhesive to patient skin given her fragile skin state. The following preventative measure are currently in place: Low Air Loss Mattress, Barrier cream application, preventative foam dressing where appropriate, waffle cushion when patient up to chair, turning schedule, and heel protector boots. Recommendations: 1. Turn and Reposition every 2 hours and as needed for patient comfort.? Use pillows or wedges to support off loading positions. 2. Off Load all bony prominences with use of pillows and heel boots if needed.? Apply Preventative foams where needed. ? 3. Monitor for incontinence and moisture control, use barrier creams when needed for prevention and treatment. 4. Provide adequate and supplemental nutrition.? 5. Continue low air loss mattress. 6. When applicable maintain blood glucose levels per Providers order. 7. Sacrum- Off Load Pressure Cleanse with PH balanced wipes - Apply Triad / Zinc to wound bed - do not scrub between dressing changes Cover with sacral foam dressing. Change every 3 days and PRN. 8. Bilateral Heel - Apply skin prep allow to dry - Place in Heel Protector Boots to off load pressure. Do Not use Foam Dressings. 9. Skin Tears - Cleanse with normal saline, pat dry. ?Apply Xeroform secure with Abd pads, gauze wrap and tape. ?Do not apply tape to patient?s skin.? Avoid Adhesive application to skin - when necessary, apply skin prep prior.? Re-consult wound care Nurse for wound deterioration or wound changes.
[2024-01-11] MEDS: traZODone HCL 25 MG HALFTAB PO (15:04)
--- NOTE | 2024-01-11 15:07 | PC.NURSE ---
IV outdated today. Flushes without difficulty. Dr. Donovan ok with keeping the IV one more day. Pt likely will discharge tomorrow.
[2024-01-11 15:41] VITALS: BP 100/46; PULSE 60; RESP 18; TEMP 36.1; O2SAT 100
[2024-01-11] MEDS: Acetaminophen 325 MG TABLET 975 MG PO ×2 (16:12→22:00)
[2024-01-11 16:44] LABS: Glucose, Whole Blood 170 mg/dL (60-115)
--- NOTE | 2024-01-11 18:35 | PC.NURSE ---
Pt with no void since last night. Bladder scanned for 421. Order to straight cath from Dr. Donovan. Straight cathed for 350cc concentrated urine @1600.
[2024-01-11 20:00] VITALS: BP 98/47; PULSE 63; RESP 18; TEMP 36.3; O2SAT 97
[2024-01-11] MEDS: Atorvastatin Calcium 20 MG TABLET 100 MG PO (20:30)
[2024-01-11] MEDS: lamoTRIgine 25 MG TABLET PO (20:31)
[2024-01-11 21:00] LABS: Glucose, Whole Blood 132 mg/dL (60-115)
[2024-01-11] MEDS: Melatonin 3 MG TABLET 6 MG PO ×2 (21:56)
[2024-01-12] MEDS: Ketorolac Tromethamine 15 MG/ML VIAL IVPUSH (02:07)
[2024-01-12 04:00] VITALS: BP 94/52; PULSE 72; RESP 20; TEMP 36; O2SAT 98
[2024-01-12 07:32] LABS: Glucose, Whole Blood 101 mg/dL (60-115)
[2024-01-12 07:52] VITALS: BP 120/56; PULSE 61; RESP 14; TEMP 36.6; O2SAT 93
[2024-01-12] MEDS: Aspirin Enteric Coated 81 MG TABLET.DR PO (08:49)
[2024-01-12] MEDS: Enoxaparin Sodium 30 MG/0.3 ML SYRINGE SUBCUT (08:49)
[2024-01-12] MEDS: Amiodarone HCL 200 MG TABLET PO (08:49)
[2024-01-12] MEDS: Calcitonin,Salmon,Synth Nasal 3.7 ML BOTTLE 1 SPRAY NOSTRIL-B (08:50)
[2024-01-12] MEDS: Zinc Oxide 20% Ointment 28.35 GM TUBE 1 APPL TOPICAL (08:50)
[2024-01-12] MEDS: 0.9 % Sodium Chloride Flush 3 ML SYRINGE IVFLUSH (08:50)
[2024-01-12] MEDS: Acetaminophen 325 MG TABLET 975 MG PO (10:39)
--- NOTE | 2024-01-12 10:44 | PM.DS ---
DS: Providers Provider Date of Service: 01/12/24 Date of admission: 01/02/24 23:28 Date of discharge: 01/12/24 Primary care physician: Karley Cohen MD Admitting clinician: Tejas Rodriguez Attending physician on admission: Tejas Rodriguez Consults: 01/03/24 07:56 Consult to Wound Care Routine Reason for consultation: stage 2 sacral ulcer 01/03/24 09:38 Consult to Gastroenterology Routine Consulting Provider: Zlueyma Castillo Reason for consultation: hyperammonemia 01/03/24 14:53 Consult to Nephrology Routine Consulting Provider: [facility] Reason for consultation: blake 01/04/24 15:07 Consult to Neurology Routine Consulting Provider: [facility] Reason for consultation: encephalopathy, minimal improvement with normalization of ammonia level 01/06/24 10:39 Consult to Hospice Routine Comment: Attending physician on discharge: Boris Donovan Discharging clinician: Boris Donovan DS: Diagnosis Discharge Diagnosis (1) Metabolic encephalopathy: Status: Acute DS: Summary Hospital Course Hospital Course: 88-year-old female with pertinent history of paroxysmal atrial fibrillation not on anticoagulation, congestive heart failure, unspecified EF, chronic kidney disease, COPD not on home oxygen, coronary artery disease who was brought to the emergency department evaluation of altered mentation. Unable to obtain history from the patient as she is only responding to painful stimulus. Tried calling the patient's daughter but no response. History obtained with the help of ER provider and chart review. Apparently patient was found to be sleeping till 15:00 on the day of presentation. Patient was sleepy and patient's called the daughter who found her to be drowsy and subsequently called EMS. Unable to obtain review of systems. Hospital course: 88-year-old female with multiple comorbidities including COPD, Congestive heart failure, unspecified EF/coronary artery disease,paf, Dm type 2, chronic kidney disease, dysphagia, chronic anemia- admitted to the hospital Acute toxic metabolic encephalopathy multifactorial, elevated lft's, BLAKE on ckd ,decubti sacrum, right/left heel Dti ,also elevated ammonia levels,decreased po intake : Patient was treated with p.o. hydration, diuretic hold, lactulose, also seen by neuro and EEG done which showedMildly abnormal EEG suggestive of left hemispheric irritability, subsequently also added Lamictal as per neuro, also seen by wound care(please see care instructions). With above supportive care patient condition seems similar and family decided to defer active treatments and decided for hospice care. Patient will be going home with hospice. plan: hold diuretics ,also hold lantus due to flactuating fs and low po intake. tylenol, lidocaine patch for hip /upper leg pains(has arthritis right hip/knee on xray). see wound care instructions . home with hospice. Above management discussed with the patient daughter miss Tran in detail length they understand and in agreement with the above plan, time spent 40 minute. Time Attestation Total time managing care of this patient today: 40 mintues. Discharge Coordination Time (in mins): 40 min Quality: Safe Use of Opioids Does Pt have an Active Cancer Diagnosis on the Problem List?: No Quality: Stroke Does the patient have a stroke diagnosis?: No Physical Exam Vital Signs: Vital Signs: Last Vital Signs Temp 97.8 F 01/12/24 07:52 Pulse 61 01/12/24 07:52 Resp 14 01/12/24 07:52 BP 120/56 L 01/12/24 07:52 Pulse Ox 93 01/12/24 07:52 O2 Del Method Room Air 01/12/24 07:52 BMI result Body Mass Index 25.8 Appearance: awke ,Alert . cvs: rrr, [id number] . res: clear to auscultation ,no rhonchii or wheezing abd: no rebound or guarding ,nt, bs present. ext pulses present , no cyanosis . neuro: nonfocal. skin-right heel /left heel /sacrum area - (see pic from wound care note 01/11/24). DS: Data Data Completed and Pending Labs on day of discharge: Laboratory Results - last 24 hr 01/11/24 01/11/24 01/11/24 11:20 16:36 20:39 POC Glucose 133 H 170 H 132 H 01/12/24 07:24 POC Glucose 101 Imaging Chest x-ray: Radiologist's impression: ITS Impressions Chest X-Ray 01/02/24 17:01 IMPRESSION: Lung volumes are diminished. There is at least top normal cardiac size. No focal infiltrate or congestive heart failure is seen. Electronically signed by: Jovanny Hernandez MD 01/02/2024 08:17 PM EDT RP Head CT 01/02/24 17:01 IMPRESSION: 1. No evidence of acute intracranial hemorrhage or edematous territorial infarction. 2. Moderate underlying microangiopathy and generalized cerebral volume loss. 3. Moderate left posterior scalp hematoma/edema. No associated osseous abnormalities. Electronically signed by: Jed Cedeno DO 01/02/2024 07:20 PM EDT RP Abdomen Ultrasound 01/03/24 13:00 IMPRESSION: No biliary dilatation. No abnormal findings in the right upper quadrant. Electronically signed by: Roldan Brito MD 01/03/2024 01:55 PM EDT RP Abdomen/Pelvis CT 01/04/24 08:55 IMPRESSION: No acute findings in the abdomen or pelvis. Small bibasilar effusions. Query right-sided heart failure. No acute findings in the abdomen. Fleischner guidelines were followed. Electronically signed by: Roldan Brito MD 01/04/2024 10:42 AM EDT RP Venous Duplex 01/06/24 09:45 IMPRESSION: No evidence of deep venous thrombosis involving the bilateral upper extremities. Electronically signed by: Gato Isabel MD 01/06/2024 11:06 AM EDT RP Femur X-Ray 01/10/24 16:00 IMPRESSION: 1. No acute fracture or dislocation. 2. 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 3. Trace chondrocalcinosis of the right knee. 4. Severe vascular calcifications. 5. Diffuse soft tissue swelling. Electronically signed by: Sindi Huff MD 01/10/2024 06:13 PM EDT RP Knee X-Ray 01/10/24 16:00 IMPRESSION: 1. No acute fracture or dislocation. 2. 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 3. Trace chondrocalcinosis of the right knee. 4. Severe vascular calcifications. 5. Diffuse soft tissue swelling. Electronically signed by: Sindi Huff MD 01/10/2024 06:13 PM EDT RP Discharge Plan Discharge Anticipated Discharge Date/Time: 01/12/24 10:24 Patient Disposition: Hospice - Home Discharge Diagnosis: Toxic metabolic encephalopathy, BLAKE Referrals: Karley Mayer MD [Primary Care Provider] - 1 Week Discharge Medications: New magnesium hydroxide [Milk of Magnesia] 400 mg/5 mL Suspension 30 ml PO DAILY PRN (Reason: Constipation) Qty: 100 0RF trazodone 50 mg tablet 12.5 mg PO BID PRN (Reason: Pain, Moderate(Pain Scale 4-6)) Qty: 10 0RF Artificial Tears([id number]) 1-0.2-0.2 % Drops 1 drp ophthalmic (eye) Q4H PRN (Reason: Dry Eyes) Qty: 15 0RF lidocaine 4 % adhesive patch,medicated 1 patch topical DAILY PRN (Reason: pain) Qty: 15 0RF insulin lispro [Admelog U-100 Insulin lispro] 100 unit/mL Solution See Protocol subcut QIDACHS Qty: 10 0RF Protocol: Insulin Correction Scale Less than or equal to 110 ---- Give (units): 0 111 to 150 Give (units): 0 151 to 200 Give (units): 2 201 to 250 Give (units): 4 251 to 300 Give (units): 6 301 to 350 Give (units): 8 Greater than 350 Give (units): 10 Call if Blood Glucose > : 350 lactulose 20 gram/30 mL Solution 20 g PO TID Qty: 120 0RF lamotrigine 25 mg Tablet 25 mg PO BEDTIME Qty: 30 0RF acetaminophen 325 mg Tablet 975 mg PO Q6H PRN (Reason: Pain, Mild (Pain Scale 1-3), fever or headache) Qty: 10 0RF trazodone 50 mg tablet 12.5 mg PO BID PRN (Reason: Pain, Moderate(Pain Scale 4-6)) Qty: 10 0RF Continued atorvastatin 10 mg tablet 10 tab PO BEDTIME amiodarone 200 mg tablet 200 mg PO DAILY albuterol sulfate 90 mcg/actuation HFA aerosol inhaler 2 puff PO Q6H PRN (Reason: wheezing) omega-3 acid ethyl esters 1 gram capsule 2 cap PO DAILY aspirin 81 mg Tablet,Delayed Release (Dr/Ec) 81 mg PO DAILY gabapentin 100 mg capsule 100 mg PO BID calcitonin (salmon) 200 unit/actuation spray,non-aerosol 1 spray intranasal DAILY zinc oxide 20 % Ointment 1 appl TOPICAL DAILY Rx Instructions: applies when changing wound dressing lidocaine 5 % adhesive patch,medicated 1 patch topical DAILY PRN (Reason: pain) Qty: 15 0RF Rx Instructions: leave on most painful area for up to 12 hrs Discontinued furosemide 40 mg tablet 40 mg PO DAILY insulin glargine [Lantus U-100 Insulin] 100 unit/mL solution 15 unit subcut BEDTIME spironolactone 25 mg tablet 25 mg PO DAILY Discharge Orders: Discharge Order (Routine); Ordered 01/12/24 Ordered By: Boris Donvoan Diet: Advance to usual diet Activity on Discharge: As tolerated Stand Alone Forms: Patient Portal Discharge page Print Language: Icelandic Care Plan Goals: Patient was patient was admitted to the hospital Acute toxic metabolic encephalopathy multifactorial, elevated lft's, BLAKE,decubti sacrum, right/left heel Dti ,also elevated ammonia levels : Patient was treated with p.o. hydration, diuretic hold, lactulose, also seen by neuro and EEG done which showedMildly abnormal EEG suggestive of left hemispheric irritability, subsequently also added Lamictal as per neuro, also seen by wound care(please see care instructions). With above supportive care patient condition seems similar, family decided to defer active treatments and decided for hospice care. Patient will be going home with hospice. Health Concerns: as above . Plan of Treatment: as above. Assessment: as above.
[2024-01-12 12:00] LABS: Glucose, Whole Blood 183 mg/dL (60-115)
--- NOTE | 2024-01-12 12:45 | P.CDIM_ITS ---
PROVIDER RESPONSE TEXT: To clarify, the appropriate diagnosis supported by the clinical indicators: Other (explain): DTI QUERY TEXT: PHYSICIAN'S DOCUMENTATION REQUEST Date of Query: 01/11/2024 09:09 AM EDT Patient Name: Carmela Cross Admit Date: 01/03/2024 Dear Boris Donovan MD, A review of the medical record indicates additional documentation may be needed. Please review below and update the documentation accordingly. Clinical Indicators: Per Wound Note 01/06/24: left heel deep tissue injury, dark purple nonblanchable intact tissue Skin Prep and Off Load in Heel protector boots Based on the above, could you please provide further information regarding the ulcer/wound: Diabetic ulcer Venous stasis ulcer Arterial (ischemic) ulcer Pressure (decubitus) ulcer Traumatic wound Non-healing surgical wound Other (explain) Clinically unable to determine (explain) Thank you, Layne Bartholomew RN Use of terms such as suspected, likely, concern for, or probable (associated with a specific diagnosi s that is being evaluated, monitored, or treated as if it exists) are acceptable and can be coded in the inpatient se tting, when documented at the time of discharge. Please use your independent medical judgment in providing your response. THIS QUERY IS PART OF THE PERMANENT MEDICAL RECORD
--- NOTE | 2024-01-12 12:45 | P.CDIM_ITS ---
PROVIDER RESPONSE TEXT: To clarify, the appropriate diagnosis supported by the clinical indicators: Other (explain): Dti QUERY TEXT: PHYSICIAN'S DOCUMENTATION REQUEST Date of Query: 01/11/2024 09:07 AM EDT Patient Name: Carmela Cross Admit Date: 01/03/2024 Dear Boris Donovan MD, A review of the medical record indicates additional documentation may be needed. Please review below and update the documentation accordingly. Clinical Indicators: Per Wound Note 01/06/24; deep tissue injury right heel, present on admission Dry dressing and Off Load in Heel protector boots Based on the above, could you please provide further information regarding the type of ulcer/wound: Diabetic ulcer Venous stasis ulcer Arterial (ischemic) ulcer Pressure (decubitus) ulcer Traumatic wound Other (explain) Clinically unable to determine (explain) Thank you, Layne Bartholomew RN Use of terms such as suspected, likely, concern for, or probable (associated with a specific diagnosi s that is being evaluated, monitored, or treated as if it exists) are acceptable and can be coded in the inpatient se tting, when documented at the time of discharge. Please use your independent medical judgment in providing your response. THIS QUERY IS PART OF THE PERMANENT MEDICAL RECORD
--- NOTE | 2024-01-12 13:02 | MHC.CM.PN ---
PT WAS PRE-BOOKED FOR DC HOME WITH [facility] TODAY AT 1200 HOURS HELEN CONFIRMED PTS DME WOULD BE DELIVERED AND ASSEMBLED AT 1100 HOURS TODAY AND PTS AERONAUTICAL DRAFTER WILL ADMIT AT 1300 HOURS
== END 2024-01-12 12:18 | disposition hospice, home (50) | DRG 682 ==
LOC: HO.ED 18:42 → HO.EDOVER 23:30 → HO.S3 01-03 07:24
PROVIDERS: Internal Medicine; Internal Medicine Hypertension Specialist; Physician Assistant; Admitting Provider Student in an Organized Health Care Education/Training Program; Emergency Provider Internal Medicine; PCP Internal Medicine; Visit Provider Internal Medicine
DX: N17.9 Acute kidney failure, unspecified (principal); G92.8 Other toxic encephalopathy; I13.0 Hypertensive heart and chronic kidney disease with heart failure and stage 1 through stage 4 chronic kidney disease, or unspecified chronic kidney disease; E72.20 Disorder of urea cycle metabolism, unspecified; N18.32 Chronic kidney disease, stage 3b; E11.22 Type 2 diabetes mellitus with diabetic chronic kidney disease; D63.1 Anemia in chronic kidney disease; Z66 Do not resuscitate; I25.10 Atherosclerotic heart disease of native coronary artery without angina pectoris; R13.10 Dysphagia, unspecified; R94.01 Abnormal electroencephalogram [EEG]; Z51.5 Encounter for palliative care; I48.0 Paroxysmal atrial fibrillation; J44.9 Chronic obstructive pulmonary disease, unspecified; L89.152 Pressure ulcer of sacral region, stage 2; L89.626 Pressure-induced deep tissue damage of left heel; L89.616 Pressure-induced deep tissue damage of right heel; Z20.822 Contact with and (suspected) exposure to COVID-19; Z95.1 Presence of aortocoronary bypass graft; Z95.2 Presence of prosthetic heart valve; Z79.4 Long term (current) use of insulin; Z79.82 Long term (current) use of aspirin; Z79.899 Other long term (current) drug therapy
CPT/HCPCS: 36415; 70450; 71045; 73552; 73560; 74176; 76705; 80048; 80053; 80076; 80143; 80179; 80307; 81003; 82140; 82570; 82607; 82728; 82803; 82947; 83540; 83605; 84156; 84300; 84443; 84484; 85025; 85027; 85610; 85730; 87040; 87635; 92526; 92610; 93005; 93970; 95816; 97162; 99285; J0696; J1650; J1885; J2270; J2310; J7120

== ENCOUNTER → 2024-01-02 23:28 | Outpatient (BNV) | payer MEDICARE, OTHER, SELFPAY | PROVIDERS: Admitting Provider Student in an Organized Health Care Education/Training Program; Emergency Provider Internal Medicine; PCP Internal Medicine; Visit Provider Psychiatry & Neurology Neurology | DX: G93.41 Metabolic encephalopathy (principal) | CPT/HCPCS: 99222 ==

== ENCOUNTER → 2024-01-02 23:28 | Outpatient (BNV) | payer MEDICARE, OTHER, SELFPAY | PROVIDERS: Admitting Provider Student in an Organized Health Care Education/Training Program; Emergency Provider Internal Medicine; PCP Internal Medicine; Visit Provider Internal Medicine | DX: R41.82 Altered mental status, unspecified (principal); G93.40 Encephalopathy, unspecified; N17.9 Acute kidney failure, unspecified | CPT/HCPCS: 99222 ==

== ENCOUNTER → 2024-01-02 23:28 | Outpatient (BNV) | payer MEDICARE, OTHER, SELFPAY | PROVIDERS: Admitting Provider Student in an Organized Health Care Education/Training Program; Emergency Provider Internal Medicine; PCP Internal Medicine; Visit Provider Student in an Organized Health Care Education/Training Program | DX: G93.41 Metabolic encephalopathy (principal) | CPT/HCPCS: 99223; 99231; 99232; 99239; 99497 ==

== ENCOUNTER → 2024-01-02 23:28 | Outpatient (BNV) | payer MEDICARE, OTHER, SELFPAY | PROVIDERS: Admitting Provider Student in an Organized Health Care Education/Training Program; Emergency Provider Internal Medicine; PCP Internal Medicine; Visit Provider Internal Medicine Hypertension Specialist | DX: N17.9 Acute kidney failure, unspecified (principal) | CPT/HCPCS: 99223; 99232 ==

== ENCOUNTER 2024-01-12 14:11 | Emergency (ER) | payer MEDICARE, OTHER, SELFPAY ==
[2024-01-12 14:17] VITALS: BP 102/67; PULSE 87; O2SAT 99
--- NOTE | 2024-01-12 14:21 | ED_ITS ---
HPI - General Adult General Chief complaint: General Medical Stated complaint: FAILED HOSPICE DISCHARGE PER EMS Time Seen by Provider: 01/12/24 14:20 Source: patient, EMS and other (case management) Mode of arrival: EMS History of Present Illness ED Provider: kvng HPI narrative: Patient is an 89-year-old female with history of paroxysmal atrial fibrillation not on anticoagulation, congestive heart failure, unspecified EF, chronic kidney disease, COPD not on home oxygen, coronary artery disease presenting to the emergency department from home after being discharged from the inpatient floor this morning where she was admitted for metabolic encephalopathy. Per Lesia from , patient was discharged home on hospice but it was not explained by hospice to family that someone would need to stay with the patient 29/11. Family stating they are not able to do this. Patient has no new complaints. MD complaint: family unable to care for Onset (ago): hour(s) Related Data Home Medications ?Medication ?Instructions ?Recorded ?Confirmed albuterol sulfate 90 mcg/actuation 2 puff PO Q6H PRN wheezing 09/15/21 01/12/24 aerosol inhaler amiodarone 200 mg tablet 200 mg PO DAILY 09/15/21 01/12/24 atorvastatin 10 mg tablet 10 mg PO BEDTIME 09/15/21 01/12/24 omega-3 acid ethyl esters 1 gram 2 cap PO DAILY 09/15/21 01/12/24 capsule calcitonin (salmon) 200 1 spray intranasal (ALT) DAILY 05/15/23 01/12/24 unit/actuation nasal spray zinc oxide 20 % topical ointment 1 appl topical DAILY 05/16/23 01/12/24 aspirin 81 mg tablet,delayed 81 mg PO DAILY 01/03/24 01/12/24 release gabapentin 100 mg capsule 100 mg PO BID 01/03/24 01/12/24 insulin lispro 100 unit/mL See Protocol subcut QID 01/12/24 01/12/24 subcutaneous pen Previous Rx's ?Medication ?Instructions ?Recorded acetaminophen 325 mg tablet 975 mg (3 x 325 mg) PO Q6H PRN 01/12/24 Pain, Mild (Pain Scale 1-3), fever or headache #10 tabs lactulose 20 gram/30 mL oral 20 g (30 mL) PO TID #120 mL 01/12/24 solution lamotrigine 25 mg tablet 25 mg PO BEDTIME #30 tabs 01/12/24 lidocaine 4 % topical patch 1 patch topical DAILY PRN pain #15 01/12/24 ea magnesium hydroxide 400 mg/5 mL 30 ml PO DAILY PRN Constipation 01/12/24 oral suspension (Milk of Magnesia) #100 mL peg [id number] 1 1 drp ophthalmic (eye) Q4H PRN Dry 01/12/24 %-0.2 %-0.2 % eye drops Eyes #15 mL (Artificial Tears ([id number])) trazodone 50 mg tablet 12.5 mg (1/4 x 50 mg) PO BID PRN 01/12/24 Pain, Moderate(Pain Scale 4-6) #10 tabs Allergies Allergy/AdvReac Type Severity Reaction Status Date / Time No Known Allergies Allergy Verified 01/12/24 14:30 Review of Systems Review of Systems: As per HPI. Yes all other systems are reviewed and are negative Neurologic: Reports confusion Psychiatric: Psychiatric: Reports confusion PMFSH Past Medical History Medical History Paroxysmal atrial fibrillation COVID-19 vaccine series completed Diabetes GERD (gastroesophageal reflux disease) Chronic renal insufficiency COPD (chronic obstructive pulmonary disease) Asthma On anticoagulant therapy Elevated cholesterol Aortic valvular disease Pacemaker CHF (congestive heart failure) Myocardial infarction CAD (coronary artery disease) HTN (hypertension) Surgical History Hx of tonsillectomy Hx of cholecystectomy History of esophagogastroduodenoscopy (EGD) Hx of CABG Hx of heart artery stent Hx of aortic valve replacement History of hip surgery H/O colonoscopy Social History Social History Household Members: Spouse Housing: Other Are you a primary patient care technician instructor to a significant other at home: No Do you presently have visiting nurse or other home services: No Patient Tobacco Use Status: Never used Tobacco Smoked in Last 30 Days: No Advance Directives: Yes Advance Directives on File: Yes Advance Directives Date on File: 01/12/24 service: No Physical Exam ED Vital Signs: Vital Signs - 24 hr 01/14/24 14:00 01/14/24 20:26 01/15/24 06:41 Temperature 98.2 F 98.6 F Pulse Rate 60 52 Respiratory Rate 16 12 10 L Blood Pressure 123/54 L 91/43 L Pulse Oximetry 92 96 Oxygen Delivery Method Room Air Room Air BMI result Body Mass Index 27.4 Vital signs have been reviewed and appear to be correct. Blood pressure normal. Heart rate normal. Respiratory rate normal. Temperature normal. Oxygen saturation normal. Const General: no acute distress, alert, awake and confusion Orientation/consciousness: oriented to person and confusion HENWY Head: Yes normocephalic and Yes atraumatic Ears: hearing grossly normal bilaterally and external ears normal General nose exam: Normal external nose present Throat: Yes uvula midline Eyes Pupils: Equal, round and reactive pupils present Resp Effort & Inspection: normal respiratory effort Auscultation: clear to auscultation bilaterally Cardio Rate: regular rate Rhythm: regular rhythm Heart sounds: S1 normal heart sound present and S2 normal heart sound present GI Palpation (GI): Soft to palpation and nontender Skin Wounds: wounds noted sacrum Neuro General: oriented to person and confusion Cranial nerves: Yes Equal, round and reactive pupils present Course Reevaluation(s) Reevaluation #1: Physician observation continued. P.r.n. morphine and Ativan are ordered for pain and anxiety. She was sleeping comfortably this morning. The rest of her home meds have been ordered but are certainly not a priority to give if she is hospice level of care. Lispro was discontinued as this is not needed in is uncomfortable to administer; primary goal is comfort. Diet ordered for pleasure. Her vital signs this morning were stable. Will follow-up with case management regarding transition to hospice care at a facility. Time: 14:00 Reevaluation #2: [id number] 01/14/24 -- vital signs stable. No acute overnight events per nursing staff. Med rec reviewed and completed. Physician observation continued pending case management and disposition. Will continue to monitor. Reevaluation #3: 01/15/2024 at 08:05 hours, Dr. Jose Montenegro's note I did evaluate the patient. Patient was not breathing, had no auscultable heart sounds, the patient was pronounced by me at 08:05 hours. I did fill out the patient's certificate. This patient was comfort measures only and is not a medical insurance claims specialist case. Time: 08:05 Additional Reevaluation(s): 01/15/2024. Jose Lan's note: 10:36 I did call the phone number ([phone]) for the next of kin, Leila Oswald and this is a nonworking number. I did ask the nursing staff to see if it is possible to get another number for the next of kin phone numbers. 11:51 I was able to contact the patient's daughter, Noelle and she states she will contact the family. She was also going to call the emergency department back and tell us which home the family wants to use. Medications Administered Discontinued Medications Generic Name Dose Route Start Last Admin Trade Name Freq PRN Reason Stop Dose Admin Acetaminophen 650 mg 01/12/24 15:00 01/12/24 15:36 Acetaminophen 325 Mg Tablet PO 01/12/24 15:01 650 mg ONCE ONE Administration Acetaminophen 975 mg 01/12/24 19:41 01/14/24 08:37 Acetaminophen 325 Mg Tablet PO 975 mg Q6H PRN Administration Pain, Mild (Pain Scale 1-3), fever or headache Amiodarone HCl 200 mg 01/13/24 09:00 01/15/24 07:49 Amiodarone Hcl 200 Mg Tablet PO Not Given DAILY [facility] Aspirin 81 mg 01/13/24 09:00 01/15/24 07:49 Aspirin Enteric Coated 81 Mg Tablet.Dr PO Not Given DAILY [facility] Atorvastatin Calcium 10 mg 01/12/24 21:00 01/14/24 21:00 Atorvastatin Calcium 10 Mg Tablet PO Not Given BEDTIME [facility] Calcitonin [place] 1 spray 01/13/24 09:00 01/15/24 07:49 Calcitonin,Vernon,Synth Nasal 3.7 Ml Bottle NOSTRILALT Not Given DAILY [facility] Gabapentin 100 mg 01/12/24 21:00 01/15/24 07:48 Gabapentin 100 Mg Capsule PO Not Given BID [facility] Insulin Human Lispro 0 unit 01/12/24 21:00 01/13/24 09:10 Insulin Lispro 100 Unit/Ml 3 Ml Vial SUBCUT Not Given QIDACHS [facility] Protocol Lactulose 20 gm 01/12/24 21:00 01/15/24 07:49 Lactulose 20 Gm/30 Ml Solution PO Not Given TID [facility] Lamotrigine 25 mg 01/12/24 21:00 01/14/24 21:00 Lamotrigine 25 Mg Tablet PO Not Given BEDTIME RUPESH Morphine Sulfate 5 mg 01/12/24 19:48 01/14/24 12:03 Morphine Sulfate Oral Emilia 10 Mg/5 Ml Solution PO 5 mg Q1H PRN Administration Pain, Severe (Pain Scale 7-10) Olanzapine 5 mg 01/15/24 03:27 01/15/24 04:31 Olanzapine 10 Mg Vial IM 01/15/24 03:28 5 mg STAT STA Administration Oxycodone HCl 5 mg 01/12/24 15:00 01/12/24 15:36 Oxycodone Hcl Immed Release 5 Mg Tablet PO 01/12/24 15:01 5 mg ONCE ONE Administration Zinc Oxide 1 appl 01/13/24 09:00 01/15/24 07:49 Zinc Oxide 20% Ointment 28.35 Gm Tube TOPICAL Not Given DAILY [facility] Protocol Medical Decision Making Medical Decision Making MDM Narrative: Patient is an 89-year-old female with history of paroxysmal atrial fibrillation not on anticoagulation, congestive heart failure, unspecified EF, chronic kidney disease, COPD not on home oxygen, coronary artery disease presenting to the emergency department from home after being discharged from the inpatient floor this morning where she was admitted for metabolic encephalopathy. Patient's family stating that they are unable to care for her in her own home, stating they were never told they would need to provide 24/7 care. Family unable to pay for placement at SNF. Case discussed with case management. Patient to remain in the ED on observation as family stating they are unable to care for patient at home. Call placed to pharmacy for medication reconciliation. Spoke with Dr. Chatman to discuss possible admission for PATIENT MONITOR. Patient does not meet admission criteria at this time as she is tolerating her medications by mouth, no changes since discharge from inpatient unit earlier this morning. Patient placed on physician observation pending disposition, CM following. Med rec completed, prn morphine and lorazepam ordered as per hospice care recommendations. Differential Diagnosis Differential Diagnoses: The differential diagnosis associated with the presentation includes hospice, unable to care for self Admission/Observation Consideration of admission/observation: Escalation of care including admission/observation considered Consult Healthcare Provider Management of the patient was discussed with: Hospitalist (Dr. Chatman) External Record Review External record reviewed: Inpatient record, Office record and Outpatient record Discharge Plan Discharge Clinical Impression: Encounter for hospice care, Patient Disposition: Discharge Date/Time: 01/15/24 11:15 Date/Time: 01/15/24 08:05
[2024-01-12 14:27] VITALS: BP 115/40; PULSE 60; RESP 18; TEMP 36.4; O2SAT 98; BMI 27.4
[2024-01-12] MEDS: oxyCODONE HCl Immed Release 5 MG TABLET PO (15:36)
[2024-01-12] MEDS: Acetaminophen 325 MG TABLET 650 MG PO (15:36)
--- NOTE | 2024-01-12 15:50 | MHC.CM.ED ---
Patient was discharged home with family and [facility] 01/11 at 10am. Received telephone call from Lou CM [employer], that [facility] called to say the patient would be returning to the ER because family was unaware they would need to provide 24/7 care. Patient returned to ER. T/W met with , daughter Leila and daughter Noelle. Leila and Noelle state they were never told by [facility] or [facility] that would need to provide 24/7 care. Leila and Noelle also stated hospice told them to return to the hospital so patient can be readmitted and social service director at the hospital would be able to help the family complete a [employer] application. T/W verbalized a hospital admission can not be guaranteed, especially if patient's pain could be managed with oral beds. Also explained [facility] financial counselor would be able to assist with [employer] application but there is a long of documents that are needed and this can be a lengthy process. At this time Noelle called [facility] via speaker phone. Chin was not available. Delaney, Nurse [employer] answered the phone. Family still states they are unable to provide 24/7 care, and they are unable to privately pay for room and board at a SNF. Family requesting hospital admission for pain management. T/W explained if patient's pain could be managed on oral meds, admission would not be appropriate. Even if IV meds were needed, Medicare does not pay for room and board for hospice. Delanye verified this information to be correct with family. Patient will stay in ER. List of hospice recommended medications provided to Shameka MENDEZ so they can be ordered for patient. List of documents required for [employer] exterminator care application will be provided to family with [facility] Financial Cousenlor's contact info. T/W spoke with Delaney from [facility] privately via telephone. Dionne was the liaison that provided the informational meeting with Leila and Noelle via telephone. Dionne states she made it very clear to the daughters that they are avaialble 24/7 but do not provide 24/7 care for the patient. Georgi Neley RN was trying to work with family to keep her at home overnight until their social service director could meet with the family on 01/12 to assist with additional care in the home. Family decided to take patient to the ER even though [facility] was tryinig to work with family. Continue to monitor for d/c needs.
--- NOTE | 2024-01-12 15:57 | PC.NURSE ---
2 small but loose BMs since arrival. Pt has mult wounds with pink dressings all clean and intact. family present. aware that case management will assume planning.
--- NOTE | 2024-01-12 16:22 | PC.NURSE ---
another soft stool. pt moans with all movement. has pitting edema up into her lower abd. no SOB. legs and left arm elevated. is willing to have a rectal tube
--- NOTE | 2024-01-12 17:50 | PC.NURSE ---
rectal tube placed shortly before patient fell asleep. had had frequent soft stools.
--- NOTE | 2024-01-12 18:07 | PHA.MEDREC ---
Addendum entered by Cinda Lester RPh 01/12/24 18:52: Reviewed by [facility] Original Note: Pharmacy Consult ? Medication Reconciliation Pharmacy has reviewed the medication reconciliation done by nursing. patient was discharged home on hospice today 01-12-24 but it was not explained by hospice to family that someone would need to stay with the patient 29/11. Family stating they are not able to do this. Utilized discharge packet to confirm med list. Discontinued medications: are Furosemide 40 mg, Lantus Insulin, and Spironolactone 25 mg. New medications: are Acetaminophine 975 mg Q6H prn , Artificial tears , Admelog 2-10 units per sliding scale, Lactulose 20 g/ml, Lamotrigine 25 mg, Lidocaine 4% patch, Milk of magnesia 400 mg/ml, and trazadone 50 mg.
[2024-01-12 19:00] VITALS: BP 105/24; PULSE 60; RESP 14; TEMP 36.6
--- NOTE | 2024-01-12 19:10 | MHC.EDTECH ---
Patient reposition and bed pad changed
--- NOTE | 2024-01-12 19:11 | MHC.CM.ED ---
Pt lives with 91 year old . She has 2 daughters. She is bedbound. As noted, family has requested home hospice, but cannot care for her at home. CM spoke with daughters at length, They cannot take her home, cannot care for her, cannot pay room and board for hospice in a facility and cannot pay for additional home care. Daughters are aware that the MH application can take weeks to complete and a month for approval. They were given the listing for required paperwork for MH and [facility] financial counselors contact info. They are aware that their mother does not meet criteria for admission and will remain in the ED or in the overflow if there is a bed. They are aware that some facilities will accept MH pending and that once the application is complete, CM can upload it to facilities that may have a bed offer. The family is requesting INSURANCE AGENT care. Provider aware. They would like basic care, wound care and medications for comfort. [facility] has not yet signed patient on to hospice. No referrals placed at this time pending completion of MH application. HCP and [facility] on file. Patient appears comfortable. 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 CM contact information given to daughters. CM will follow for discharge planning.
--- NOTE | 2024-01-12 19:11 | PC.NURSE ---
assumed care of pt at 1900 , report received from Allyssa HANCOCK.
--- NOTE | 2024-01-12 20:14 | PC.NURSE ---
report called to overflow RN
--- NOTE | 2024-01-13 04:08 | PC.NURSE ---
Pt sleeping at the bedside. No apparent distress noted. Breaths are even and regular with equal chest rises. Monitoring is ongoing.
[2024-01-13 06:00] VITALS: BP 100/56; PULSE 60; RESP 18; TEMP 37; O2SAT 97
--- NOTE | 2024-01-13 09:10 | PC.NURSE ---
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
--- NOTE | 2024-01-13 10:53 | MHC.CM.PN ---
PT AWAITING SNF PLACEMENT WITH HOSPICE SERVICES REFERRAL SENT TO [facility] YESTERDAY SNF REFERRALS WILL BE MADE ONCE MH MIKI IS COMPLETE
--- NOTE | 2024-01-13 13:26 | PC.NURSE ---
Report taken from Kim HANCOCK, assumed care of pt at 1100. Pt resting eyes closed, respirations even unlabored. Awaiting SNF placement with hospice services, will continue to monitor.
[2024-01-13 14:24] VITALS: BP 107/55; PULSE 69; RESP 18; TEMP 36.9; O2SAT 98
--- NOTE | 2024-01-13 14:24 | PC.NURSE ---
Pt family to bedside for visit, pt awake alert, offers no complaints, remains clean and dry, purewick in place.
[2024-01-13] MEDS: Morphine Sulfate Oral Sol 10 MG/5 ML SOLUTION 5 MG PO (15:31)
--- NOTE | 2024-01-13 15:48 | PC.NURSE ---
Pt endorsing BLE pain 10/10, repositioned and medicated with prn pain med per MAR.
--- NOTE | 2024-01-13 17:09 | PC.NURSE ---
Pt sleeping, attempted to wake for dinner, pt stated she just wants to sleep.
--- NOTE | 2024-01-13 19:03 | PC.NURSE ---
Report received from Maisha HANCOCK, assume care of pt at this time
[2024-01-13] MEDS: Gabapentin 100 MG CAPSULE PO (21:13)
[2024-01-13] MEDS: Atorvastatin Calcium 10 MG TABLET PO (21:13)
[2024-01-13] MEDS: lamoTRIgine 25 MG TABLET PO (21:13)
--- NOTE | 2024-01-13 21:25 | PC.NURSE ---
pt agreed to take pm medication, pt refused the stuff that makes me have diarreha
--- NOTE | 2024-01-13 23:23 | PC.NURSE ---
report given to Haley HANCOCK
[2024-01-14 06:00] VITALS: BP 126/51; PULSE 61; RESP 16; TEMP 37; O2SAT 97
[2024-01-14] MEDS: Acetaminophen 325 MG TABLET 975 MG PO (08:37)
--- NOTE | 2024-01-14 10:51 | PC.NURSE ---
Took report from off-going RN at 0700 hrs. Pt is a 89 y/o female who is here for evalution of possible placement in hospice, brought in by daughters. Has a purwick in place, but little production. Has been refusing meds and meals. Pt is arousable with verbal stimuli. Mostly appropriate with staff. Plan is for possible placement in SNF with hospice, awaiting [facility] approval. Will continue to monitor for changes.
[2024-01-14] MEDS: Morphine Sulfate Oral Sol 10 MG/5 ML SOLUTION 5 MG PO (12:03)
[2024-01-14 14:00] VITALS: PULSE 60; RESP 16; O2SAT 92
--- NOTE | 2024-01-14 15:48 | PC.NURSE ---
pt sleeping, 7 RR/minute while sleeping, 12-16 when awake. Pt arousable to verbal stimuli, wakes up when you speak to her.
[2024-01-14 20:26] VITALS: BP 123/54; PULSE 52; RESP 12; TEMP 36.8; O2SAT 96
--- NOTE | 2024-01-14 22:58 | MHC.EDTECH ---
This tech and RN repositioned Pt for comfort.
--- NOTE | 2024-01-15 01:48 | PC.NURSE ---
Patient sleeping throughout night. Repositioned, awakens to verbal stimuli, refused Morphine po.
[2024-01-15] MEDS: OLANZapine 10 MG VIAL 5 MG IM (04:31)
[2024-01-15 06:41] VITALS: BP 91/43; RESP 10; TEMP 37
--- NOTE | 2024-01-15 06:41 | MHC.EDTECH ---
Pt found to be incontinent of stool. T/w and RN cleaned and repositioned Pt.
--- NOTE | 2024-01-15 08:00 | PC.NURSE ---
ED overflow tech entered patient?s room after chnge of shift report and reported to this fiction and nonfiction prose writer that she believed the patient has passed. This RN assessed pt and no pulse or respirations were found. ED MD and other staff members notified. 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 [facility] were contacted.
== END 2024-01-15 11:15 | disposition expired ==
PROVIDERS: Emergency Provider Emergency Medicine Emergency Medical Services; PCP Internal Medicine
DX: G93.41 Metabolic encephalopathy; E11.9 Type 2 diabetes mellitus without complications; I10 Essential (primary) hypertension; E78.5 Hyperlipidemia, unspecified; J44.9 Chronic obstructive pulmonary disease, unspecified; I48.0 Paroxysmal atrial fibrillation; I25.2 Old myocardial infarction; Z95.0 Presence of cardiac pacemaker
CPT/HCPCS: 96372; 99284; 99285; J2359